=== PATIENT | female | born 1980 ===

== ENCOUNTER 2020-11-25 10:36 | Outpatient (REF) | payer MEDICARE, MEDICAID, SELFPAY | END 2020-11-25 10:37 | disposition home or self-care (01) | LOC: HO.HMGCLDS 10:36 | PROVIDERS: Visit Provider Internal Medicine | DX: Z20.822 Contact with and (suspected) exposure to COVID-19 (principal) | CPT/HCPCS: 36415; C9803; U0003 ==

== ENCOUNTER 2021-07-04 09:00 | Outpatient (REF) | payer MEDICARE, MEDICAID, SELFPAY ==
[2021-07-04 10:22] LABS: MANUAL DIFF FLAG NO
[2021-07-04 10:31] LABS: Basophils Percent Auto 0.6 % (0-2); Eosinophils Absolute Auto 0.1 X10*3/uL (0.0-0.4); Eosinophils Percent Auto 2.2 % (0-4); Hematocrit 37.5 % (37-47); Hemoglobin 12.4 g/dl (12.0-16.0); Imm Gran Abs Auto 0.01 X10*3/uL (0.00-0.03); Imm Gran Pct Auto 0.2 % (0.0-0.4); Lymphocytes Absolute Auto 2.4 X10*3/uL (1.2-4.9); Lymphocytes Percent Auto 37.4 % (20-40); Mean Corpuscular HGB Conc 33.1 g/dl (31.0-35.0); Mean Corpuscular Hemoglobin 29.8 pg (27.0-33.0); Mean Corpuscular Volume 90.1 fL (80-98); Mean Platelet Volume 11.2 fL (9.4-12.3); Monocytes Absolute Auto 0.5 X10*3/uL (0.1-1.2); Monocytes Percent Auto 7.5 % (2-11); Neutrophils Absolute Auto 3.3 X10*3/uL (2.0-8.3); Neutrophils Percent Auto 52.1 % (45-73); Platelet Count 307 X10*3/uL (160-400); Red Blood Count 4.16 X10*6/uL (4.20-5.50); White Blood Count 6.4 X10*3/uL (4.8-10.8)
[2021-07-04 10:48] LABS: Alanine Aminotransferase 11 U/L (0-31); Albumin Level 3.9 g/dL (3.5-5.0); Alkaline Phosphatase 83 U/L (39-117); Anion Gap 10 (12-20); Aspartate Amino Transferase 13 U/L (5-31); Bilirubin Total 0.3 mg/dL (0.0-1.0); Blood Urea Nitrogen 16 mg/dL (9-16); Calcium 8.9 mg/dL (8.4-10.2); Carbon Dioxide 25 mmol/L (22-29); Chloride 109 mmol/L (96-108); Estimated Glomerular Filt Rate > 60; Glucose Random 98 mg/dL (60-115); Potassium 4.3 mmol/L (3.3-5.1); Sodium 140 mmol/L (135-145); Total Protein 7.1 g/dL (6.5-8.0)
== END 2021-07-04 09:01 | disposition home or self-care (01) ==
LOC: HO.LAB 09:00
PROVIDERS: PCP Internal Medicine; Visit Provider Internal Medicine
DX: F43.10 Post-traumatic stress disorder, unspecified (principal); F70 Mild intellectual disabilities; N39.44 Nocturnal enuresis; R13.19 Other dysphagia
CPT/HCPCS: 36415; 80053; 85025

== ENCOUNTER 2021-09-03 12:06 | Outpatient (REF) | payer MEDICARE, MEDICAID, SELFPAY | END 2021-09-03 12:07 | disposition home or self-care (01) | LOC: HO.10HDL 12:06 | PROVIDERS: Visit Provider Internal Medicine | DX: Z13.89 Encounter for screening for other disorder (principal) ==

== ENCOUNTER 2021-09-04 09:56 | Outpatient (REF) | payer MEDICARE, MEDICAID, SELFPAY ==
[2021-09-04 10:11] LABS: MANUAL DIFF FLAG NO
[2021-09-04 10:39] LABS: Basophils Percent Auto 0.4 % (0-2); Eosinophils Absolute Auto 0.1 X10*3/uL (0.0-0.4); Eosinophils Percent Auto 1.8 % (0-4); Hematocrit 42.6 % (37-47); Hemoglobin 13.7 g/dl (12.0-16.0); Imm Gran Abs Auto 0.03 X10*3/uL (0.00-0.03); Imm Gran Pct Auto 0.4 % (0.0-0.4); Lymphocytes Percent Auto 26.1 % (20-40); Mean Corpuscular HGB Conc 32.2 g/dl (31.0-35.0); Mean Corpuscular Hemoglobin 29.3 pg (27.0-33.0); Mean Platelet Volume 11.1 fL (9.4-12.3); Monocytes Absolute Auto 0.7 X10*3/uL (0.1-1.2); Monocytes Percent Auto 8.6 % (2-11); Neutrophils Absolute Auto 4.8 X10*3/uL (2.0-8.3); Neutrophils Percent Auto 62.7 % (45-73); Platelet Count 307 X10*3/uL (160-400); Red Blood Count 4.68 X10*6/uL (4.20-5.50); Red Cell Distribution Width 11.9 % (11.0-16.0); White Blood Count 7.7 X10*3/uL (4.8-10.8)
[2021-09-04 11:07] LABS: Alanine Aminotransferase 12 U/L (0-31); Albumin Level 4.4 g/dL (3.5-5.0); Alkaline Phosphatase 110 U/L (39-117); Anion Gap 14 (12-20); Aspartate Amino Transferase 14 U/L (5-31); Bilirubin Total 0.4 mg/dL (0.0-1.0); Blood Urea Nitrogen 14 mg/dL (9-16); Calcium 9.6 mg/dL (8.4-10.2); Carbon Dioxide 28 mmol/L (22-29); Chloride 104 mmol/L (96-108); Cholesterol 199 mg/dL; Estimated Glomerular Filt Rate > 60; Glucose Random 101 mg/dL (60-115); HDL Cholesterol 42 mg/dL; LDL Cholesterol Calculated 126 mg/dl; Potassium 4.5 mmol/L (3.3-5.1); Sodium 141 mmol/L (135-145); Triglycerides 158 mg/dL
[2021-09-04 11:28] LABS: Thyroid Stimulating Hormone 1.73 uIU/mL (0.32-4.0)
== END 2021-09-04 09:57 | disposition home or self-care (01) ==
LOC: HO.LAB 09:56
PROVIDERS: PCP Internal Medicine; Visit Provider Internal Medicine
DX: F21 Schizotypal disorder (principal); J45.909 Unspecified asthma, uncomplicated; R13.19 Other dysphagia; R63.5 Abnormal weight gain
CPT/HCPCS: 36415; 80053; 80061; 84443; 85025

== ENCOUNTER 2021-12-17 16:18 | Emergency (ER) | payer MEDICARE, MEDICAID, SELFPAY ==
--- NOTE | ~2021-12-17 | XR_ITS ---
EXAMINATION: XR CHEST CLINICAL INFORMATION: Shortness of breath. COMPARISON: No similar priors. TECHNIQUE: PA view of the chest was obtained. FINDINGS: No significant abnormality is noted involving the heart, lungs, mediastinum, bony thorax or soft tissues. XR/XR chest 1V IMPRESSION: No acute cardiopulmonary findings.
[2021-12-17 16:34] VITALS: BP 150/86; PULSE 112; O2SAT 99
[2021-12-17 16:39] VITALS: BMI 23.0
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
--- NOTE | 2021-12-17 16:50 | MHC.CARE ---
CARE Team received a call from Lesvia Pedraza DSS Manager Cardiac Cath reporting Pt was assessed by [facility]N in the community and found IPLOC. Pt is currently a DDU Bedsearch.
[2021-12-17 19:19] LABS: MANUAL DIFF FLAG NO
[2021-12-17 19:21] LABS: Basophils Percent Auto 0.3 % (0-2); Eosinophils Absolute Auto 0.1 X10*3/uL (0.0-0.4); Eosinophils Percent Auto 0.5 % (0-4); Hematocrit 39.3 % (37.0-47.0); Hemoglobin 13.3 g/dl (12.0-16.0); Imm Gran Abs Auto 0.05 X10*3/uL (0.00-0.03); Imm Gran Pct Auto 0.4 % (0.0-0.4); Lymphocytes Absolute Auto 1.7 X10*3/uL (1.2-4.9); Lymphocytes Percent Auto 13.1 % (20-40); Mean Corpuscular HGB Conc 33.8 g/dl (31.0-35.0); Mean Corpuscular Hemoglobin 29.7 pg (27.0-33.0); Mean Corpuscular Volume 87.7 fL (80.0-98.0); Mean Platelet Volume 11.4 fL (9.4-12.3); Monocytes Absolute Auto 1.1 X10*3/uL (0.1-1.2); Monocytes Percent Auto 7.9 % (2-11); Neutrophils Absolute Auto 10.3 x10*3/uL (2.0-8.3); Neutrophils Percent Auto 77.8 % (45-73); Platelet Count 347 X10*3/uL (160-400); Red Blood Count 4.48 X10*6/uL (4.20-5.50); White Blood Count 13.3 X10*3/uL (4.8-10.8)
[2021-12-17 19:34] LABS: COVID-19 Test Negative (Negative); IDNOW Serial# 9DD0AD1C
[2021-12-17 19:36] LABS: Alanine Aminotransferase 15 U/L (0-31); Albumin Level 3.9 g/dL (3.5-5.0); Alkaline Phosphatase 105 U/L (39-117); Anion Gap 13 (12-20); Aspartate Amino Transferase 23 U/L (5-31); Bilirubin Total 0.2 mg/dL (0.0-1.0); Blood Urea Nitrogen 14 mg/dL (9-16); Calcium 9.2 mg/dL (8.4-10.2); Carbon Dioxide 27 mmol/L (22-29); Chloride 103 mmol/L (96-108); Creatinine Clr Calc Pharmacy 78.7; Estimated Glomerular Filt Rate > 60; Glucose Random 129 mg/dL (60-115); Magnesium 2.1 mg/dL (1.6-2.6); Potassium 3.2 mmol/L (3.3-5.1); Sodium 140 mmol/L (135-145); Total Protein 7.7 g/dL (6.5-8.0)
--- NOTE | 2021-12-17 21:01 | PC.NURSE ---
Addendum entered by Monalisa Barkley 12/17/21 22:18: late entry. pt decided to provide urine sample. pt refused repeat lab draw to check potassium. t/w emphasized importance of lab draw, pt still refused. luz cruz. Original Note: pt refused to provide urine sample. t/w stressed the importance of providing a sample, pt still refused.
[2021-12-17 21:24] LABS: Appearance Urine CLEAR; Color Urine YELLOW; Glucose Urine UA NEG (NEG); Leukocyte Esterase Urine NEG (NEG); Nitrite Urine NEG (NEG); UACC Culture Trigger NO; Urine Blood TRACE (NEG); Urine Ketones 5 MG/DL (NEG); Urine Protein NEG (NEG-TRACE)
[2021-12-17 21:32] LABS: Bacteria Urine TRACE /LPF; RBC Urine 0 /HPF (0); Squamous Epithelial Cell Urine 1+ /LPF; WBC Urine 0 /HPF (0-4)
[2021-12-17 21:41] LABS: Amphetamine Screen Urine Not Detected (Not Detect); Barbiturates, Urine Not Detected (Not Detect); Benzodiazepines Screen Urine Not Detected (Not Detect); Cannabinoid Screen Urine Not Detected (Not Detect); Cocaine Screen Urine Not Detected (Not Detect); Fentanyl, urine Not Detected (Not Detect); Opiate Screen Urine Not Detected (Not Detect); Phencyclidine Screen Urine Not Detected (Not Detect)
[2021-12-18 01:49] VITALS: BP 143/91; PULSE 92; RESP 16; TEMP 36.6; O2SAT 98
[2021-12-18 02:34] LABS: Anion Gap 18 (12-20); Blood Urea Nitrogen 13 mg/dL (9-16); Calcium 9.4 mg/dL (8.4-10.2); Carbon Dioxide 23 mmol/L (22-29); Chloride 104 mmol/L (96-108); Estimated Glomerular Filt Rate > 60; Glucose Random 107 mg/dL (60-115); Potassium 3.6 mmol/L (3.3-5.1); Sodium 141 mmol/L (135-145)
--- NOTE | 2021-12-18 06:09 | PC.NURSE ---
Patient slept through the night, no distress observed/reported, med rec completed/pending provider's approval, patient's disposition per N is section 12 inpatient DDU Bed Search, VSS, will continue to monitor.
[2021-12-18 07:50] VITALS: BP 141/94; PULSE 98; RESP 14; TEMP 37.2; O2SAT 98
--- NOTE | 2021-12-18 09:44 | PHA.MEDREC ---
Pharmacy Consult ? Medication Reconciliation Pharmacy has reviewed the medication reconciliation completed by [place]. Patient told me to call her pharmacy for updated medication list. Utilized claim history then called to verify directions. Added medications missed for med rec compelted overnight: oxybutynin, sertraline, and albuterol inhaler. Updated directions for diltiazem from QD to TID. Willow Esparza, PharmD
[2021-12-18 14:00] VITALS: BP 130/40; PULSE 98; RESP 16; TEMP 37.2; O2SAT 98
== END 2021-12-18 16:15 | disposition home or self-care (01) ==
PROVIDERS: Physician Assistant; Emergency Provider Emergency Medicine
DX: F91.9 Conduct disorder, unspecified (principal); F25.0 Schizoaffective disorder, bipolar type; R45.1 Restlessness and agitation; Z20.822 Contact with and (suspected) exposure to COVID-19; Z91.14 Patient's other noncompliance with medication regimen
CPT/HCPCS: 36415; 71045; 80048; 80053; 80307; 81001; 83735; 85025; 87635; 99284; 99285

== ENCOUNTER 2022-01-13 11:35 | Outpatient (REF) | payer MEDICARE, MEDICAID, SELFPAY ==
--- NOTE | ~2022-01-13 | XR_ITS ---
EXAMINATION: XR CHEST CLINICAL INFORMATION: Cough. Left anterior chest pain COMPARISON: Previous chest x-ray TECHNIQUE: 2 views of the chest were obtained. FINDINGS: No significant abnormality is noted involving the heart, lungs, mediastinum, bony thorax or soft tissues. XR/XR chest 2V IMPRESSION: Unremarkable examination.
== END 2022-01-13 11:36 | disposition home or self-care (01) ==
LOC: HO.XRAY 11:35
PROVIDERS: PCP Internal Medicine; Visit Provider Internal Medicine
DX: R05.9 Cough, unspecified (principal)
CPT/HCPCS: 71046

== ENCOUNTER 2022-02-03 20:30 | Emergency (ER) | payer MEDICARE, MEDICAID, SELFPAY ==
[2022-02-03 20:38] VITALS: BP 135/96; PULSE 90; RESP 16; TEMP 36.6; O2SAT 99; BMI 34.9
--- NOTE | 2022-02-03 21:29 | ED_ITS ---
HPI - Psych General Chief Complaint: Psychiatric Symptoms Stated Complaint: SECTION 12 Time Seen by Provider: 02/03/22 20:39 Source: EMS Mode of arrival: EMS Limitations: other (Unwilling to speak) History of Present Illness HPI Narrative: Patient is brought to the emergency room from a senior care. According to the group staff, patient has been gradually decompensated; eating less, becoming more quiet, not talking to people. Behavioral health network Section 12 the patient, she is an inpatient bed search. When I speak to the patient, patient states that she does not know why she is here. Otherwise, patient refuses to answer any other questions. Related Data Home Medications Medication Instructions Recorded Confirmed clonazepam 1 mg tablet 1 tab PO BID PRN 12/17/21 02/03/22 diltiazem HCl 30 mg tablet 30 mg PO TID 12/17/21 02/03/22 famotidine 20 mg tablet 1 tab PO BID 12/17/21 02/03/22 loratadine 10 mg tablet 1 tab PO DAILY 12/17/21 02/03/22 montelukast 10 mg tablet 1 tab PO DAILY 12/17/21 02/03/22 olanzapine 15 mg tablet 1 tab PO BEDTIME 12/17/21 02/03/22 omeprazole 40 mg capsule,delayed 1 cap PO DAILY 12/17/21 02/03/22 release topiramate 50 mg tablet 1 tab PO DAILY 12/17/21 02/03/22 albuterol sulfate 90 mcg/actuation 2 puff INHALATION Q4H PRN 12/18/21 02/03/22 aerosol inhaler oxybutynin chloride 15 mg 1 tab PO DAILY 12/18/21 02/03/22 tablet,extended release 24 hr sertraline 100 mg tablet 200 mg PO DAILY 12/18/21 02/03/22 Allergies Allergy/AdvReac Type Severity Reaction Status Date / Time No Known Allergies Allergy Unverified 08/08/20 15:15 [No Known Allergies*] Review of Systems Review of Systems: Yes Unobtainable due to mental status PMFSH Past Medical History Medical History (Updated 02/03/22 @ 21:40 by Marleen Dobson MD) Conduct disorder Intellectual disability Schizoaffective disorder Social History Social History Advance Directives: No Advance Directives Information Provided: No Patient : No Physical Exam Vital Signs: Vital Signs: Last Vital Signs Temp 97.9 F 02/03/22 20:38 Pulse 90 02/03/22 20:38 Resp 16 02/03/22 20:38 BP 135/96 H 02/03/22 20:38 Pulse Ox 99 02/03/22 20:38 BMI result Body Mass Index 34.9 Const: Other: Appearance: Alert. No acute distress. Eyes: Pupils equal, round and reactive to light. ENT: Pharynx normal. Neck: Normal inspection. Neck supple. CVS: Normal heart rate and rhythm. Pulses normal. Respiratory: No respiratory distress. Breath sounds normal. Abdomen: Soft and nontender. No rigidity. No distention. Skin: Skin warm and dry. Normal skin color. Normal skin turgor. Extremities: No lower extremity edema. No Lacerations. No Rash Neuro: Ambulating with steady gait unassisted, No motor deficit. No sensory deficit. Moving all extremities. No slurred speech. CN 2 through 12 grossly intact Psych: calm, unwilling to speak, sitting in bed starting of the TV Course Course Course Narrative: Patient was already evaluated at the senior care by [facility]. Patient is an inpatient bed search. Physician ulceration started at 21:40 Discharge Plan Discharge Clinical Impression: Schizoaffective disorder Patient Disposition: Still a Patient Prescriptions: No Action omeprazole 40 mg capsule,delayed release(DR/EC) 1 cap PO DAILY 0RF famotidine 20 mg tablet 1 tab PO BID 0RF montelukast 10 mg tablet 1 tab PO DAILY 0RF diltiazem HCl 30 mg tablet 30 mg PO TID 0RF loratadine 10 mg tablet 1 tab PO DAILY 0RF topiramate 50 mg tablet 1 tab PO DAILY 0RF clonazepam 1 mg tablet 1 tab PO BID PRN (Reason: Anxiety) 0RF olanzapine 15 mg tablet 1 tab PO BEDTIME 0RF oxybutynin chloride 15 mg tablet extended release 24 hr 1 tab PO DAILY 0RF sertraline 100 mg tablet 200 mg PO DAILY 0RF albuterol sulfate 90 mcg/actuation HFA aerosol inhaler 2 puff inhalation Q4H PRN (Reason: Wheezing) 0RF
[2022-02-03 21:57] LABS: COVID-19 Test Negative (Negative)
[2022-02-04 06:30] VITALS: BP 129/74; PULSE 87; RESP 16; TEMP 36.3; O2SAT 98
--- NOTE | 2022-02-04 06:52 | PC.NURSE ---
Patient slept through the night, no distress observed/reported, behavior non concerning, med rec completed/pending provider's approval, patient was assessed by [facility], disposition section 12 inpatient bed search, will continue to monitor.
[2022-02-04 06:55] LABS: Appearance Urine CLEAR; Color Urine YELLOW; Glucose Urine UA NEG (NEG); Leukocyte Esterase Urine TRACE (NEG); Nitrite Urine NEG (NEG); Specific Gravity - Urine >= 1.030 (1.005-1.025); Urine Blood 3+ (NEG); Urine Ketones 5 MG/DL (NEG); Urine Protein 1+ MG/DL (NEG-TRACE)
[2022-02-04 06:56] LABS: Amphetamine Screen Urine Not Detected (Not Detect); Barbiturates, Urine Not Detected (Not Detect); Benzodiazepines Screen Urine Not Detected (Not Detect); Cannabinoid Screen Urine Not Detected (Not Detect); Cocaine Screen Urine Not Detected (Not Detect); Fentanyl, urine Not Detected (Not Detect); Opiate Screen Urine Not Detected (Not Detect); Phencyclidine Screen Urine Not Detected (Not Detect); UPreg QC Valid YES; Urine Pregnancy NEGATIVE (NEGATIVE)
[2022-02-04 07:20] LABS: Bacteria Urine 2+ /LPF; Mucus Urine 1+ /LPF; Squamous Epithelial Cell Urine 2+ /LPF
--- NOTE | 2022-02-04 07:38 | PC.NURSE ---
patient appears to remain asleep at present respirations are even and unlabored patient appears in no distress
[2022-02-04 15:36] VITALS: BP 115/80; PULSE 76; RESP 18; TEMP 37.4; O2SAT 95
[2022-02-04] MEDS: dilTIAZem HCL 30 MG TABLET PO ×2 (16:06→21:19)
[2022-02-04] MEDS: Topiramate 25 MG TABLET 50 MG PO (16:06)
[2022-02-04] MEDS: Montelukast Sodium 10 MG TABLET PO (16:06)
[2022-02-04] MEDS: Loratadine 10 MG TABLET PO (16:06)
[2022-02-04] MEDS: Sertraline HCL 100 MG TABLET 200 MG PO (16:06)
[2022-02-04] MEDS: Omeprazole 40 MG CAPSULE.DR PO (16:06)
[2022-02-04] MEDS: OLANZapine 7.5 MG TABLET 15 MG PO (21:19)
[2022-02-04] MEDS: clonazePAM 1 MG TABLET PO (21:19)
[2022-02-04] MEDS: Famotidine 20 MG TABLET PO (21:19)
--- NOTE | 2022-02-05 05:45 | PC.NURSE ---
Patient slept through the night, no distress observed/reported, behavior non concerning, medication compliant, [facility]N completed MSU, disposition unchanged, section 12 inpatient bed search, VSS, will continue to monitor.
[2022-02-05 06:08] VITALS: BP 145/84; PULSE 84; RESP 16; TEMP 36.8; O2SAT 97
[2022-02-05] MEDS: Omeprazole 40 MG CAPSULE.DR PO (06:13)
[2022-02-05] MEDS: Sertraline HCL 100 MG TABLET 200 MG PO (09:00)
[2022-02-05] MEDS: Topiramate 25 MG TABLET 50 MG PO (09:00)
[2022-02-05] MEDS: Montelukast Sodium 10 MG TABLET PO (09:01)
[2022-02-05] MEDS: Famotidine 20 MG TABLET PO ×2 (09:01→21:19)
[2022-02-05] MEDS: dilTIAZem HCL 30 MG TABLET PO ×3 (09:01→21:19)
[2022-02-05] MEDS: Loratadine 10 MG TABLET PO (09:02)
--- NOTE | 2022-02-05 09:09 | PC.NURSE ---
pt medication compliant - medicated per provider order.
[2022-02-05 16:30] VITALS: BP 148/77; PULSE 78; RESP 16; TEMP 36.7; O2SAT 98
--- NOTE | 2022-02-05 16:34 | PC.NURSE ---
pt medicated per provider order.
--- NOTE | 2022-02-05 17:25 | PC.NURSE ---
pt awake and watching TV, increased interaction with staff, showered this afternoon, pt calm and cooperative.
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
[2022-02-05] MEDS: OLANZapine 7.5 MG TABLET 15 MG PO (21:19)
[2022-02-05 21:21] VITALS: BP 100/76; PULSE 76; RESP 18
[2022-02-06] MEDS: Omeprazole 40 MG CAPSULE.DR PO (05:05)
[2022-02-06 06:43] VITALS: BP 117/70; PULSE 88; RESP 16; TEMP 36.6; O2SAT 97
--- NOTE | 2022-02-06 06:56 | PC.NURSE ---
Patient slept through the night, no distress observed/reported, behavior non concerning, medication compliant, disposition per [facility] is section 12 inpatient bed search, VSS, will continue to monitor.
--- NOTE | 2022-02-06 07:22 | PC.NURSE ---
patient appears to remain asleep at present respirations are even and unlabored patient appears in no distress
[2022-02-06 10:15] VITALS: BP 117/83; PULSE 111; RESP 14; TEMP 36.8; O2SAT 96
[2022-02-06] MEDS: dilTIAZem HCL 30 MG TABLET PO ×2 (14:38→20:55)
[2022-02-06] MEDS: OLANZapine 7.5 MG TABLET 15 MG PO (20:54)
[2022-02-06] MEDS: Famotidine 20 MG TABLET PO (20:55)
[2022-02-06 21:00] VITALS: BP 116/81; PULSE 121; RESP 18
[2022-02-07 05:52] VITALS: BP 96/57; PULSE 70; RESP 16; TEMP 36.8; O2SAT 97
[2022-02-07] MEDS: Omeprazole 40 MG CAPSULE.DR PO (05:55)
--- NOTE | 2022-02-07 05:59 | PC.NURSE ---
Patient slept through the night, no distress observed/reported, behavior calm and quiet, non concerning at this time, disposition section 12 inpatient bed search by N, no update on bed search, VSS, medication compliant, will continue to monitor.
[2022-02-07 08:31] VITALS: BP 117/73; PULSE 100; RESP 16; O2SAT 98
[2022-02-07] MEDS: dilTIAZem HCL 30 MG TABLET PO ×2 (08:35→20:16)
[2022-02-07] MEDS: Montelukast Sodium 10 MG TABLET PO (08:35)
[2022-02-07] MEDS: Famotidine 20 MG TABLET PO ×2 (08:35→20:16)
[2022-02-07] MEDS: Sertraline HCL 100 MG TABLET 200 MG PO (08:35)
[2022-02-07] MEDS: Topiramate 25 MG TABLET 50 MG PO (08:35)
[2022-02-07] MEDS: Loratadine 10 MG TABLET PO (08:36)
--- NOTE | 2022-02-07 08:50 | MHC.CARE ---
Behavioral Health Pod RN notifies CARE Team that pt has taken her medications as prescribed today without incident and did so yesterday as well for the same RN. POD RN stated that pt appears clearer today as well.
--- NOTE | 2022-02-07 10:57 | PC.NURSE ---
Patient resting in room alert and cooperative voiced wanting to go home. This rn discussed the importance of med compliance for discharge home, patient verbalized understanding and took all am meds. No c/o pain or discomfort at this time. will continue to monitor.
--- NOTE | 2022-02-07 14:58 | PC.NURSE ---
patient med was held due to low sbp 91
[2022-02-07 19:16] VITALS: BP 141/83; PULSE 76; RESP 18; TEMP 37; O2SAT 96
[2022-02-07] MEDS: OLANZapine 7.5 MG TABLET 15 MG PO (20:16)
--- NOTE | 2022-02-08 05:28 | PC.NURSE ---
Patient slept through the night, no distress observed/reported, behavior non concerning at this time, disposition per [facility] section 12 inpatient bed search, no update on bed search, VSS, medication compliant, will continue to monitor
[2022-02-08] MEDS: Omeprazole 40 MG CAPSULE.DR PO (05:33)
[2022-02-08 05:45] VITALS: BP 97/55; PULSE 71; RESP 16; TEMP 36.5; O2SAT 97
[2022-02-08 08:57] LABS: MANUAL DIFF FLAG NO
[2022-02-08 08:58] LABS: Basophils Percent Auto 0.6 % (0-2); Eosinophils Absolute Auto 0.2 X10*3/uL (0.0-0.4); Eosinophils Percent Auto 2.7 % (0-4); Hemoglobin 13.7 g/dl (12.0-16.0); Imm Gran Abs Auto 0.03 X10*3/uL (0.00-0.03); Imm Gran Pct Auto 0.4 % (0.0-0.4); Lymphocytes Absolute Auto 1.9 X10*3/uL (1.2-4.9); Lymphocytes Percent Auto 26.2 % (20-40); Mean Corpuscular HGB Conc 32.6 g/dl (31.0-35.0); Mean Corpuscular Hemoglobin 29.3 pg (27.0-33.0); Mean Corpuscular Volume 89.9 fL (80.0-98.0); Mean Platelet Volume 11.4 fL (9.4-12.3); Monocytes Absolute Auto 0.6 X10*3/uL (0.1-1.2); Monocytes Percent Auto 8.9 % (2-11); Neutrophils Absolute Auto 4.4 x10*3/uL (2.0-8.3); Neutrophils Percent Auto 61.2 % (45-73); Platelet Count 277 X10*3/uL (160-400); Red Blood Count 4.67 X10*6/uL (4.20-5.50); Red Cell Distribution Width 12.7 % (11.0-16.0); White Blood Count 7.1 X10*3/uL (4.8-10.8)
[2022-02-08 09:17] LABS: Alanine Aminotransferase 8 U/L (0-31); Albumin Level 4.3 g/dL (3.5-5.0); Alkaline Phosphatase 107 U/L (39-117); Anion Gap 13 (12-20); Aspartate Amino Transferase 14 U/L (5-31); Bilirubin Total 0.4 mg/dL (0.0-1.0); Blood Urea Nitrogen 17 mg/dL (9-16); Calcium 9.6 mg/dL (8.4-10.2); Carbon Dioxide 23 mmol/L (22-29); Chloride 104 mmol/L (96-108); Creatinine Clr Calc Pharmacy 96.1; Estimated Glomerular Filt Rate > 60; Glucose Random 108 mg/dL (60-115); Magnesium 2.2 mg/dL (1.6-2.6); Potassium 4.4 mmol/L (3.3-5.1); Sodium 136 mmol/L (135-145); Total Protein 8.1 g/dL (6.5-8.0)
[2022-02-08] MEDS: Famotidine 20 MG TABLET PO ×2 (10:21→19:39)
[2022-02-08] MEDS: Montelukast Sodium 10 MG TABLET PO (10:22)
[2022-02-08] MEDS: Loratadine 10 MG TABLET PO (10:22)
[2022-02-08] MEDS: Topiramate 25 MG TABLET 50 MG PO (10:22)
[2022-02-08] MEDS: dilTIAZem HCL 30 MG TABLET PO ×3 (10:22→19:39)
[2022-02-08] MEDS: Sertraline HCL 100 MG TABLET 200 MG PO (10:22)
[2022-02-08 10:28] VITALS: BP 101/78; PULSE 76; O2SAT 98
[2022-02-08 15:42] VITALS: BP 120/78; PULSE 80
[2022-02-08 19:38] VITALS: BP 101/71; PULSE 74; RESP 16; TEMP 36.6; O2SAT 96
[2022-02-08] MEDS: OLANZapine 7.5 MG TABLET 15 MG PO (19:38)
--- NOTE | 2022-02-08 21:07 | MHC.CARE ---
CARE team spoke with Milton at [facility] to inquire about the disposition from this afternoon's MSU. Milton reported that the plan continues to be for DDU inpt psych placement and that if pt stabilizes in the ED that discharging home without inpt admission may be considered.
[2022-02-09] MEDS: Omeprazole 40 MG CAPSULE.DR PO (05:35)
[2022-02-09 05:44] VITALS: BP 118/58; PULSE 77; RESP 16; TEMP 36.8; O2SAT 95
--- NOTE | 2022-02-09 06:49 | PC.NURSE ---
Patient slept through the night, no distress observed/reported, behavior non concerning at this time, disposition per [facility] section 12 inpatient bed search, no update on bed search, VSS, medication compliant, will continue to monitor
--- NOTE | 2022-02-09 07:35 | PC.NURSE ---
patient appears to remain asleep at present respirations are even and unlabored patient appears in no distress
[2022-02-09 08:34] VITALS: BP 116/74; PULSE 95; RESP 12; TEMP 36.7; O2SAT 95
[2022-02-09] MEDS: Topiramate 25 MG TABLET 50 MG PO (08:49)
[2022-02-09] MEDS: Montelukast Sodium 10 MG TABLET PO (08:49)
[2022-02-09] MEDS: dilTIAZem HCL 30 MG TABLET PO ×2 (08:50→16:17)
[2022-02-09] MEDS: Sertraline HCL 100 MG TABLET 200 MG PO (08:50)
[2022-02-09] MEDS: Loratadine 10 MG TABLET PO (08:50)
[2022-02-09] MEDS: Famotidine 20 MG TABLET PO ×2 (08:50→20:33)
[2022-02-09 16:18] VITALS: BP 121/79; PULSE 83; RESP 16; TEMP 36.7; O2SAT 98
[2022-02-09 17:03] VITALS: BP 122/88; PULSE 90; RESP 18; TEMP 36.9; O2SAT 98
--- NOTE | 2022-02-09 19:04 | MHC.CARE ---
CARE Team continues to work with pt and providers. Per [facility] intake, no clinicians available for MSU today. CARE Team meets with pt, who appears markedly better then last week, drawing pictures of terrell and hearts and spending time out in the milieu. Pt has been attending to her hygiene and has been taking all of her medications per Pod nursing staff. Pt has had no significant behavioral concerns, denies SI/HI and she is advocating to return to her long term. CARE Team speaks with Anh, manager visual from the long term. She plans on speaking with DDS and encourages CARE Team to assess pt in regard to her perception of her father. Melissa reports that pt has been confused/having delusional thought content about her father which is very uncharacteristic for her, as they typically have a very close relationship. CARE Team and pt discuss her father, and she reports that they have a close relationship, thought process is logical, linear. Per pod RN, pt has been attempting to call her father. CARE Team attempts to reach father who is also guardian, but there is no answering machine. CARE Team speaks with RODERICK Quesada beehive kil[employer] supervisor. The plan is for pt to be discharged from ED at 1000 02/10/22 for bedsearch to continue in the community. senior living, DDS, N, and ED provider are all in agreement with this plan. Pt has 24 hr staff at [facility] and has not exhibited any dangerous behaviors in the time she has been in the ED.
[2022-02-09 20:11] VITALS: BP 96/68; PULSE 77; RESP 15; TEMP 36.8; O2SAT 98
[2022-02-10 05:36] VITALS: BP 108/76; PULSE 86; RESP 16; TEMP 37.1; O2SAT 99
[2022-02-10] MEDS: Omeprazole 40 MG CAPSULE.DR PO (05:38)
--- NOTE | 2022-02-10 05:40 | PC.NURSE ---
Patient slept through the night, no distress observed/reported, behavior non concerning at this time, patient will be discharged back to retirement today @ 10 and bed search will be continued from retirement, VSS, medication compliant, will continue to monitor
--- NOTE | 2022-02-10 07:36 | PC.NURSE ---
patient appears to remain at rest at present respirations are even and unlabored patient appears in no distress
[2022-02-10] MEDS: Topiramate 25 MG TABLET 50 MG PO ×2 (08:01→08:48)
[2022-02-10] MEDS: Loratadine 10 MG TABLET PO ×2 (08:01→08:48)
[2022-02-10] MEDS: Montelukast Sodium 10 MG TABLET PO ×2 (08:01→08:48)
[2022-02-10] MEDS: Sertraline HCL 100 MG TABLET 200 MG PO ×2 (08:01→08:48)
[2022-02-10] MEDS: Famotidine 20 MG TABLET PO (08:47)
[2022-02-10] MEDS: dilTIAZem HCL 30 MG TABLET PO (08:47)
== END 2022-02-10 10:04 | disposition home or self-care (01) ==
PROVIDERS: Emergency Medicine; Physician Assistant Medical; Emergency Provider Emergency Medicine Emergency Medical Services
DX: F25.9 Schizoaffective disorder, unspecified (principal); F91.9 Conduct disorder, unspecified; F79 Unspecified intellectual disabilities; Z79.899 Other long term (current) drug therapy; Z20.822 Contact with and (suspected) exposure to COVID-19
CPT/HCPCS: 36415; 80053; 80307; 81001; 81025; 83735; 85025; 87635; 99285

== ENCOUNTER 2022-02-10 12:01 | Emergency (ER) | payer MEDICARE, MEDICAID, SELFPAY ==
[2022-02-10 12:14] VITALS: BP 120/77; PULSE 80; RESP 16; TEMP 37; O2SAT 99; BMI 31.3
[2022-02-10 12:16] VITALS: BP 114/72; PULSE 94; RESP 14; TEMP 37.1; O2SAT 99
--- NOTE | 2022-02-10 12:17 | ED.PSYCH ---
HPI - Psych General Chief Complaint: Psychiatric Symptoms Stated Complaint: Crisis Time Seen by Provider: 02/10/22 12:16 Source: patient and old records reviewed Mode of arrival: EMS Limitations: no limitations History of Present Illness HPI Narrative: 41-year-old female with a history of schizoaffective disorder who lives [place] a [place] [facility] [place] was here in the Behavioral Health pod for several days. Patient was a bed search, and was discharged home to her [place] because care team thought she could be admitted to a psychiatric facility from [place]. She was only home for 2 hours when a bed was found for her. However, [facility], will not accept the patient until she is medically cleared, they request a COVID test and her being sent to them from the emergency room. So patient has returned here for her COVID test and to transfer to [facility]. Patient is a Section 12, and came here originally for safety due to behavioral issues at her [place]. Related Data Home Medications Medication Instructions Recorded Confirmed clonazepam 1 mg tablet 1 tab PO BID PRN 12/17/21 02/03/22 diltiazem HCl 30 mg tablet 30 mg PO TID 12/17/21 02/03/22 famotidine 20 mg tablet 1 tab PO BID 12/17/21 02/03/22 loratadine 10 mg tablet 1 tab PO DAILY 12/17/21 02/03/22 montelukast 10 mg tablet 1 tab PO DAILY 12/17/21 02/03/22 olanzapine 15 mg tablet 1 tab PO BEDTIME 12/17/21 02/03/22 omeprazole 40 mg capsule,delayed 1 cap PO DAILY 12/17/21 02/03/22 release topiramate 50 mg tablet 1 tab PO DAILY 12/17/21 02/03/22 albuterol sulfate 90 mcg/actuation 2 puff INHALATION Q4H PRN 12/18/21 02/03/22 aerosol inhaler oxybutynin chloride 15 mg 1 tab PO DAILY 12/18/21 02/03/22 tablet,extended release 24 hr sertraline 100 mg tablet 200 mg PO DAILY 12/18/21 02/03/22 Allergies Allergy/AdvReac Type Severity Reaction Status Date / Time No Known Allergies Allergy Unverified 08/08/20 15:15 [No Known Allergies*] Review of Systems Constitutional: Constitutional: Denies body ache(s), Denies chills, Denies fatigue, Denies fever(s), Denies headache(s), Denies malaise and Denies weakness Eyes: Eyes: Denies diplopia ENT: Denies vertigo, Denies dizziness, Denies otalgia, Denies headache(s), Denies mouth pain, Denies post nasal drip, Denies sinus pain, Denies sinus pressure, Denies sore throat and Denies throat swelling Cardiovascular: Cardiovascular: Denies chest pain, Denies syncope, Denies leg edema, Denies lightheadedness, Denies Loss of Consciousness, Denies palpitations and Denies dyspnea Respiratory: Respiratory: Denies chest congestion, Denies cough and Denies dyspnea Gastrointestinal: Gastrointestinal: Denies abdominal pain, Denies hematochezia, Denies constipation, Denies diarrhea and Denies vomiting Musculoskeletal: Musculoskeletal: Reports no additional musculoskeletal complaints Neurologic: Denies vertigo, Denies dizziness, Denies syncope, Denies headache(s) and Denies weakness Psychiatric: Comments: Escalating behaviors, unsafe at [place] [facility] Endocrine: Endocrine: Denies fatigue and Denies palpitations Allergic/Immunologic: Allergic/Immunologic: Denies throat swelling PMFSH Past Medical History Medical History (Updated 02/10/22 @ 13:08 by ELYSE Phan) Conduct disorder Intellectual disability Schizoaffective disorder Social History Social History Alcohol intake: unknown Patient Tobacco Use Status: Refuse Tobacco use screen Advance Directives: No Advance Directives Information Provided: No Patient : No Physical Exam Vital Signs: Vital Signs: Last Vital Signs Temp 98.8 F 02/10/22 12:16 Pulse 94 02/10/22 12:16 Resp 14 02/10/22 12:16 BP 114/72 02/10/22 12:16 Pulse Ox 99 02/10/22 12:16 BMI result Body Mass Index 31.3 Const: General: cooperative, no acute distress, well developed, alert and awake Nutritional Appearance: well nourished Orientation/consciousness: patient oriented x3 Limitations: no limitations HEENT: Head: Yes normal to inspection, Yes normocephalic and Yes atraumatic Ears: hearing grossly normal bilaterally, external ears normal, TM's normal bilaterally and EAC's normal General nose exam: Normal external nose present Face and sinus: Yes normal facial exam and Yes sinuses nontender Mouth: Normal oral and palatal mucosa present Throat: Yes posterior oropharynx normal Eyes: Conjunctivae: conjunctivae normal Pupils: Equal, round and reactive pupils present EOM: EOMs intact bilaterally Neck: Neck: Yes full ROM, Yes no lymphadenopathy and Yes supple Resp: Effort & Inspection: normal respiratory effort and able to speak in complete sentences Auscultation: clear to auscultation bilaterally, no crackles, no rales, no rhonchi and no wheezes Cardio: Rate: regular rate Rhythm: regular rhythm Heart sounds: S1 normal heart sound present and S2 normal heart sound present GI: Inspection: Yes normal to inspection Palpation (GI): Soft to palpation, nontender, no guarding and not rigid Percussion: Yes normal to percussion Auscultation: normal bowel sounds Skin: General skin exam: no rashes or lesions noted Neuro: General: patient oriented x3, tone normal and moves all extremities Cranial nerves: Yes Equal, round and reactive pupils present Extrem: General: Yes normal to inspection and Yes full ROM Psych: Appearance: grossly normal Affect: normal affect Attitude: cooperative Thought process: Normal thought process present Course Course Course Narrative: 41-year-old female who lives [place] presents for medical clearance so she can be transferred to [facility] for an inpatient psychiatric stay, due to her behavioral issues at the [place]. Patient is COVID negative, and is transferred to [facility]. MDM - Psych Lab Data Labs: Lab Results 02/10/22 Range/Units 12:32 COVID-19 (GAUTAM) Negative (Negative) COVID-19 Clin Com See Note Discharge Plan Discharge Clinical Impression: Schizoaffective disorder Patient Disposition: er Acute Care Hospital Transfer Details: [facility], [place], [address] Prescriptions: No Action omeprazole 40 mg capsule,delayed release(DR/EC) 1 cap PO DAILY 0RF famotidine 20 mg tablet 1 tab PO BID 0RF montelukast 10 mg tablet 1 tab PO DAILY 0RF diltiazem HCl 30 mg tablet 30 mg PO TID 0RF loratadine 10 mg tablet 1 tab PO DAILY 0RF topiramate 50 mg tablet 1 tab PO DAILY 0RF clonazepam 1 mg tablet 1 tab PO BID PRN (Reason: Anxiety) 0RF olanzapine 15 mg tablet 1 tab PO BEDTIME 0RF oxybutynin chloride 15 mg tablet extended release 24 hr 1 tab PO DAILY 0RF sertraline 100 mg tablet 200 mg PO DAILY 0RF albuterol sulfate 90 mcg/actuation HFA aerosol inhaler 2 puff inhalation Q4H PRN (Reason: Wheezing) 0RF
[2022-02-10 12:54] LABS: COVID-19 Test Negative (Negative); IDNOW Serial# 16C4AD1C
[2022-02-10 19:52] VITALS: BP 127/80; PULSE 97; RESP 18; TEMP 37.1; O2SAT 98
== END 2022-02-10 20:10 | disposition short-term general hospital (02) ==
PROVIDERS: Physician Assistant; Emergency Provider Emergency Medicine Emergency Medical Services; PCP Physician Assistant Medical
DX: Z02.2 Encounter for examination for admission to residential institution (principal); F25.9 Schizoaffective disorder, unspecified; Z20.822 Contact with and (suspected) exposure to COVID-19
CPT/HCPCS: 87635; 99285

== ENCOUNTER 2022-04-15 15:17 | Inpatient (IN) | payer MEDICARE, MEDICAID, SELFPAY ==
[2022-04-15 15:32] VITALS: BMI 41.5
--- NOTE | 2022-04-15 15:37 | ED_ITS ---
HPI - Psych General Chief Complaint: Psychiatric Symptoms <ELYSE Gan Last Filed: 04/16/22 02:15> Stated Complaint: crisis <ELYSE Gan Last Filed: 04/16/22 02:15> Time Seen by Provider: 04/15/22 15:37 <ELYSE Gan Last Filed: 04/16/22 02:15> Source: EMS and RN notes reviewed <ELYSE Gan Last Filed: 04/16/22 02:15> Mode of arrival: EMS <ELYSE Gan Last Filed: 04/16/22 02:15> Limitations: other (Refusing to answer questions) <ELYSE Gan Last Filed: 04/16/22 02:15> History of Present Illness HPI Narrative: 42-year-old female presenting to the Emergency Department on a Section 12 with EMS and police on board she is coming in for violation of a Alfonso order, patient not taking her medications. Experiencing delusions, wanting to stab her 3rd eye out, has been combative and aggressive at the jail. She is refusing to answer questions. Not making eye contact. Keep saying nope to every question. Unable to obtain an accurate review of systems and history from patient due to mental status <ELYSE Gan Last Filed: 04/16/22 02:15> History of same: Yes <ELYSE Gan Last Filed: 04/16/22 02:15> Relieving factors: none <ELYSE Gan Last Filed: 04/16/22 02:15> Exacerbating factors: none <ELYSE Gan Last Filed: 04/16/22 02:15> Related Data Home Medications: Home Medications Medication Instructions Recorded Confirmed diltiazem HCl 30 mg tablet 30 mg PO TID 12/17/21 04/15/22 famotidine 20 mg tablet 1 tab PO BID 12/17/21 04/15/22 loratadine 10 mg tablet 1 tab PO DAILY 12/17/21 04/15/22 olanzapine 15 mg tablet 1 tab PO BEDTIME 12/17/21 04/15/22 omeprazole 40 mg capsule,delayed 1 cap PO DAILY 12/17/21 04/15/22 release topiramate 50 mg tablet 1 tab PO BEDTIME 12/17/21 04/15/22 albuterol sulfate 90 mcg/actuation 2 puff INHALATION Q4H PRN 12/18/21 04/15/22 aerosol inhaler sertraline 100 mg tablet 200 mg PO DAILY 12/18/21 04/15/22 <ELYSE Gan - Last Filed: 04/16/22 02:15> Allergies/Adverse Reactions: Allergies Allergy/AdvReac Type Severity Reaction Status Date / Time No Known Allergies Allergy Verified 04/15/22 15:35 [No Known Allergies*] <ELYSE Gan - Last Filed: 04/16/22 02:15> Review of Systems Review of Systems: Yes Unobtainable due to mental status <ELYSE Gan - Last Filed: 04/16/22 02:15> PMFSH Past Medical History Attestation statement: The following information was validated with the patient. <ELYSE Gan - Last Filed: 04/16/22 02:15> Source: old records reviewed and nursing notes reviewed <ELYSE Gan - Last Filed: 04/16/22 02:15> Medical History: Medical History Conduct disorder Intellectual disability Schizoaffective disorder <ELYSE Gan - Last Filed: 04/16/22 02:15> Social History Social History: Social History Alcohol intake: unknown Patient Tobacco Use Status: Refuse Tobacco use screen Advance Directives: No Advance Directives Information Provided: No <ELYSE Gan - Last Filed: 04/16/22 02:15> Physical Exam Vital Signs: Vital Signs: Last Vital Signs Temp 98.3 F 04/16/22 19:51 Pulse 68 04/16/22 19:51 Resp 18 04/16/22 19:51 BP 114/79 04/16/22 19:51 Pulse Ox 97 04/16/22 19:51 BMI result Body Mass Index 41.5 <ELYSE Gan - Last Filed: 04/16/22 02:15> Vital Signs: Last Vital Signs Temp 98.3 F 04/16/22 19:51 Pulse 68 04/16/22 19:51 Resp 18 04/16/22 19:51 BP 114/79 04/16/22 19:51 Pulse Ox 97 04/16/22 19:51 BMI result Body Mass Index 41.5 <ELYSE Elmore - Last Filed: 04/16/22 08:19> Vital Signs: Last Vital Signs Temp 98.3 F 04/16/22 19:51 Pulse 68 04/16/22 19:51 Resp 18 04/16/22 19:51 BP 114/79 04/16/22 19:51 Pulse Ox 97 04/16/22 19:51 BMI result Body Mass Index 41.5 <Audrey Garcia NP - Last Filed: 04/16/22 20:44> Appearance: Alert.? Oriented X3.? No acute distress.? Patient refusing to answer questions. Head: Normocephalic, atraumatic, no step-offs or deformities Eyes: Pupils equal, round and reactive to light.? ENT: Pharynx normal.? Neck: Normal inspection.? Neck supple.? CVS: Normal heart rate and rhythm.? Pulses normal.? Respiratory: No respiratory distress.? Breath sounds normal.? Abdomen: Soft and nontender.? Skin: Skin warm and dry.? Normal skin color.? Normal skin turgor.? Extremities: No lower extremity edema.? No calf ttp. 5/5 strength to bilateral upper and lower extremities Neuro: Oriented X 3.? No motor deficit.? No sensory deficit. CN 2-12 intact <ELYSE Gan - Last Filed: 04/16/22 02:15> Course Reevaluation(s) Reevaluation #1: COVID negative. Patient continues to refuse laboratory studies. <ELYSE Gan - Last Filed: 04/16/22 02:15> Time: 23:39 <ELYSE Gan - Last Filed: 04/16/22 02:15> Reevaluation #2: Multiple staff members have tried to get patient to agree to labs however she is refusing. Vital signs are stable. Sign-out given to pending labs, n evaluation. Patient will be place in physician observation to allow more time for laboratory studies, urine and behavioral health evaluation. <ELYSE Gan - Last Filed: 04/16/22 02:15> Time: 02:11 <ELYSE Gan - Last Filed: 04/16/22 02:15> Reevaluation #3: Physician observation continued. Patient continues to refuse lab wo rkup, will try again today. She is an inpatient bed search. She has been calm and maintaining safe behavior. Will continue to monitor. <ELYSE Elmore - Last Filed: 04/16/22 08:19> Time: 08:18 <ELYSE Elmore - Last Filed: 04/16/22 08:19> Additional Reevaluation(s): Patient re-evaluated by crisis. Patient is an inpatient Section 12 bed search <Audrey Garcia NP - Last Filed: 04/16/22 20:44> MDM - Psych MDM Narrative Medical decision making narrative: 1540 42-year-old female brought in on a Section 12 for violating Velasquez's orders, non med compliance, delusions, thoughts of self-harm. She has presented with a similar history in the past Physical examination benign. Patient refusing to answer questions. Plan at this time is medical clearance and evaluation by the behavioral health team. Patient refusing labs at this time, vitals <ELYSE Gan - Last Filed: 04/16/22 02:15> Medical Records Attestation: I reviewed the patient's medical records. <ELYSE Gan - Last Filed: 04/16/22 02:15> Lab Data Attestation: I reviewed the patient's lab results. <ELYSE Gan - Last Filed: 04/16/22 02:15> Result diagrams: : 04/16/22 08:27 04/16/22 08:27 <ELYSE Gan - Last Filed: 04/16/22 02:15> Labs: Lab Results 04/15/22 04/16/22 04/16/22 Range/Units 15:56 07:33 08:27 WBC (4.8-10.8) X10*3/uL RBC (4.20-5.50) X10*6/uL Hgb (12.0-16.0) g/dl Hct (37.0-47.0) % MCV (80.0-98.0) fL MCH (27.0-33.0) pg MCHC (31.0-35.0) g/dl RDW (11.0-16.0) % Plt Count (160-400) X10*3/uL MPV (9.4-12.3) fL Immature Gran % (Auto) (0.0-0.4) % Neut % (Auto) (45-73) % Lymph % (Auto) (20-40) % [place] % (Auto) (2-11) % Eos % (Auto) (0-4) % Baso % (Auto) (0-2) % Lymph # (Auto) (1.2-4.9) X10*3/uL [place] # (Auto) (0.1-1.2) X10*3/uL Eos # (Auto) (0.0-0.4) X10*3/uL Baso # (Auto) (0.0-0.2) X10*3/uL Abs Immat Gran (auto) (0.00-0.03) X10*3/uL Absolute Neuts (auto) (2.0-8.3) x10*3/uL Absolute Nucleated RBC (0.0-0.012) X10*3/uL Nucleated RBC % (auto) (0.0-0.2) /100WBC Sodium 138 (135-145) mmol/L Potassium 4.7 (3.3-5.1) mmol/L Chloride 110 H (96-108) mmol/L Carbon Dioxide 23 (22-29) mmol/L Anion Gap 10 L (12-20) BUN 13 (9-16) mg/dL Creatinine 0.86 (0.5-1.4) mg/dL Estim Creat Clear Calc 80.7 Estimated GFR > 60 Random Glucose 108 (60-115) mg/dL Calcium 9.1 (8.4-10.2) mg/dL Total Bilirubin 0.3 (0.0-1.0) mg/dL AST 13 (5-31) U/L ALT 9 (0-31) U/L Alkaline Phosphatase 103 (39-117) U/L Total Protein 7.1 (6.5-8.0) g/dL Albumin 3.8 (3.5-5.0) g/dL Urine Color Cancelled Urine Appearance Cancelled Urine pH Cancelled Ur Specific [place] Cancelled Urine Protein Cancelled Urine Glucose (UA) Cancelled Urine Ketones Cancelled Urine Blood Cancelled Urine Nitrite Cancelled Ur Leukocyte Esterase Cancelled COVID-19 (GAUTAM) Negative (Negative) COVID-19 Clin Com See Note 04/16/22 Range/Units 08:27 WBC 6.1 (4.8-10.8) X10*3/uL RBC 4.17 L (4.20-5.50) X10*6/uL Hgb 12.1 (12.0-16.0) g/dl Hct 37.5 (37.0-47.0) % MCV 89.9 (80.0-98.0) fL MCH 29.0 (27.0-33.0) pg MCHC 32.3 (31.0-35.0) g/dl RDW 12.7 (11.0-16.0) % Plt Count 275 (160-400) X10*3/uL MPV 10.3 (9.4-12.3) fL Immature Gran % (Auto) 0.5 H (0.0-0.4) % Neut % (Auto) 66.3 (45-73) % Lymph % (Auto) 22.6 (20-40) % [place] % (Auto) 7.9 (2-11) % Eos % (Auto) 2.0 (0-4) % Baso % (Auto) 0.7 (0-2) % Lymph # (Auto) 1.4 (1.2-4.9) X10*3/uL [place] # (Auto) 0.5 (0.1-1.2) X10*3/uL Eos # (Auto) 0.1 (0.0-0.4) X10*3/uL Baso # (Auto) 0.0 (0.0-0.2) X10*3/uL Abs Immat Gran (auto) 0.03 (0.00-0.03) X10*3/uL Absolute Neuts (auto) 4.0 (2.0-8.3) x10*3/uL Absolute Nucleated RBC 0.000 (0.0-0.012) X10*3/uL Nucleated RBC % (auto) 0.0 (0.0-0.2) /100WBC Sodium (135-145) mmol/L Potassium (3.3-5.1) mmol/L Chloride (96-108) mmol/L Carbon Dioxide (22-29) mmol/L Anion Gap (12-20) BUN (9-16) mg/dL Creatinine (0.5-1.4) mg/dL Estim Creat Clear Calc Estimated GFR Random Glucose (60-115) mg/dL Calcium (8.4-10.2) mg/dL Total Bilirubin (0.0-1.0) mg/dL AST (5-31) U/L ALT (0-31) U/L Alkaline Phosphatase (39-117) U/L Total Protein (6.5-8.0) g/dL Albumin (3.5-5.0) g/dL Urine Color Urine Appearance Urine pH Ur Specific [place] Urine Protein Urine Glucose (UA) Urine Ketones Urine Blood Urine Nitrite Ur Leukocyte Esterase COVID-19 (GAUTAM) (Negative) COVID-19 Clin Com <ELYSE Gan - Last Filed: 04/16/22 02:15> Lab Results 04/15/22 04/16/22 04/16/22 Range/Units 15:56 07:33 08:27 WBC (4.8-10.8) X10*3/uL RBC (4.20-5.50) X10*6/uL Hgb (12.0-16.0) g/dl Hct (37.0-47.0) % MCV (80.0-98.0) fL MCH (27.0-33.0) pg MCHC (31.0-35.0) g/dl RDW (11.0-16.0) % Plt Count (160-400) X10*3/uL MPV (9.4-12.3) fL Immature Gran % (Auto) (0.0-0.4) % Neut % (Auto) (45-73) % Lymph % (Auto) (20-40) % [place] % (Auto) (2-11) % Eos % (Auto) (0-4) % Baso % (Auto) (0-2) % Lymph # (Auto) (1.2-4.9) X10*3/uL [place] # (Auto) (0.1-1.2) X10*3/uL Eos # (Auto) (0.0-0.4) X10*3/uL Baso # (Auto) (0.0-0.2) X10*3/uL Abs Immat Gran (auto) (0.00-0.03) X10*3/uL Absolute Neuts (auto) (2.0-8.3) x10*3/uL Absolute Nucleated RBC (0.0-0.012) X10*3/uL Nucleated RBC % (auto) (0.0-0.2) /100WBC Sodium 138 (135-145) mmol/L Potassium 4.7 (3.3-5.1) mmol/L Chloride 110 H (96-108) mmol/L Carbon Dioxide 23 (22-29) mmol/L Anion Gap 10 L (12-20) BUN 13 (9-16) mg/dL Creatinine 0.86 (0.5-1.4) mg/dL Estim Creat Clear Calc 80.7 Estimated GFR > 60 Random Glucose 108 (60-115) mg/dL Calcium 9.1 (8.4-10.2) mg/dL Total Bilirubin 0.3 (0.0-1.0) mg/dL AST 13 (5-31) U/L ALT 9 (0-31) U/L Alkaline Phosphatase 103 (39-117) U/L Total Protein 7.1 (6.5-8.0) g/dL Albumin 3.8 (3.5-5.0) g/dL Urine Color Cancelled Urine Appearance Cancelled Urine pH Cancelled Ur Specific [place] Cancelled Urine Protein Cancelled Urine Glucose (UA) Cancelled Urine Ketones Cancelled Urine Blood Cancelled Urine Nitrite Cancelled Ur Leukocyte Esterase Cancelled COVID-19 (GAUTAM) Negative (Negative) COVID-19 Clin Com See Note 04/16/22 Range/Units 08:27 WBC 6.1 (4.8-10.8) X10*3/uL RBC 4.17 L (4.20-5.50) X10*6/uL Hgb 12.1 (12.0-16.0) g/dl Hct 37.5 (37.0-47.0) % MCV 89.9 (80.0-98.0) fL MCH 29.0 (27.0-33.0) pg MCHC 32.3 (31.0-35.0) g/dl RDW 12.7 (11.0-16.0) % Plt Count 275 (160-400) X10*3/uL MPV 10.3 (9.4-12.3) fL Immature Gran % (Auto) 0.5 H (0.0-0.4) % Neut % (Auto) 66.3 (45-73) % Lymph % (Auto) 22.6 (20-40) % [place] % (Auto) 7.9 (2-11) % Eos % (Auto) 2.0 (0-4) % Baso % (Auto) 0.7 (0-2) % Lymph # (Auto) 1.4 (1.2-4.9) X10*3/uL [place] # (Auto) 0.5 (0.1-1.2) X10*3/uL Eos # (Auto) 0.1 (0.0-0.4) X10*3/uL Baso # (Auto) 0.0 (0.0-0.2) X10*3/uL Abs Immat Gran (auto) 0.03 (0.00-0.03) X10*3/uL Absolute Neuts (auto) 4.0 (2.0-8.3) x10*3/uL Absolute Nucleated RBC 0.000 (0.0-0.012) X10*3/uL Nucleated RBC % (auto) 0.0 (0.0-0.2) /100WBC Sodium (135-145) mmol/L Potassium (3.3-5.1) mmol/L Chloride (96-108) mmol/L Carbon Dioxide (22-29) mmol/L Anion Gap (12-20) BUN (9-16) mg/dL Creatinine (0.5-1.4) mg/dL Estim Creat Clear Calc Estimated GFR Random Glucose (60-115) mg/dL Calcium (8.4-10.2) mg/dL Total Bilirubin (0.0-1.0) mg/dL AST (5-31) U/L ALT (0-31) U/L Alkaline Phosphatase (39-117) U/L Total Protein (6.5-8.0) g/dL Albumin (3.5-5.0) g/dL Urine Color Urine Appearance Urine pH Ur Specific [place] Urine Protein Urine Glucose (UA) Urine Ketones Urine Blood Urine Nitrite Ur Leukocyte Esterase COVID-19 (GAUTAM) (Negative) COVID-19 Clin Com <ELYSE Elmore - Last Filed: 04/16/22 08:19> Lab Results 04/15/22 04/16/22 04/16/22 Range/Units 15:56 07:33 08:27 WBC (4.8-10.8) X10*3/uL RBC (4.20-5.50) X10*6/uL Hgb (12.0-16.0) g/dl Hct (37.0-47.0) % MCV (80.0-98.0) fL MCH (27.0-33.0) pg MCHC (31.0-35.0) g/dl RDW (11.0-16.0) % Plt Count (160-400) X10*3/uL MPV (9.4-12.3) fL Immature Gran % (Auto) (0.0-0.4) % Neut % (Auto) (45-73) % Lymph % (Auto) (20-40) % [place] % (Auto) (2-11) % Eos % (Auto) (0-4) % Baso % (Auto) (0-2) % Lymph # (Auto) (1.2-4.9) X10*3/uL [place] # (Auto) (0.1-1.2) X10*3/uL Eos # (Auto) (0.0-0.4) X10*3/uL Baso # (Auto) (0.0-0.2) X10*3/uL Abs Immat Gran (auto) (0.00-0.03) X10*3/uL Absolute Neuts (auto) (2.0-8.3) x10*3/uL Absolute Nucleated RBC (0.0-0.012) X10*3/uL Nucleated RBC % (auto) (0.0-0.2) /100WBC Sodium 138 (135-145) mmol/L Potassium 4.7 (3.3-5.1) mmol/L Chloride 110 H (96-108) mmol/L Carbon Dioxide 23 (22-29) mmol/L Anion Gap 10 L (12-20) BUN 13 (9-16) mg/dL Creatinine 0.86 (0.5-1.4) mg/dL Estim Creat Clear Calc 80.7 Estimated GFR > 60 Random Glucose 108 (60-115) mg/dL Calcium 9.1 (8.4-10.2) mg/dL Total Bilirubin 0.3 (0.0-1.0) mg/dL AST 13 (5-31) U/L ALT 9 (0-31) U/L Alkaline Phosphatase 103 (39-117) U/L Total Protein 7.1 (6.5-8.0) g/dL Albumin 3.8 (3.5-5.0) g/dL Urine Color Cancelled Urine Appearance Cancelled Urine pH Cancelled Ur Specific [place] Cancelled Urine Protein Cancelled Urine Glucose (UA) Cancelled Urine Ketones Cancelled Urine Blood Cancelled Urine Nitrite Cancelled Ur Leukocyte Esterase Cancelled COVID-19 (GAUTAM) Negative (Negative) COVID-19 Clin Com See Note 04/16/22 Range/Units 08:27 WBC 6.1 (4.8-10.8) X10*3/uL RBC 4.17 L (4.20-5.50) X10*6/uL Hgb 12.1 (12.0-16.0) g/dl Hct 37.5 (37.0-47.0) % MCV 89.9 (80.0-98.0) fL MCH 29.0 (27.0-33.0) pg MCHC 32.3 (31.0-35.0) g/dl RDW 12.7 (11.0-16.0) % Plt Count 275 (160-400) X10*3/uL MPV 10.3 (9.4-12.3) fL Immature Gran % (Auto) 0.5 H (0.0-0.4) % Neut % (Auto) 66.3 (45-73) % Lymph % (Auto) 22.6 (20-40) % [place] % (Auto) 7.9 (2-11) % Eos % (Auto) 2.0 (0-4) % Baso % (Auto) 0.7 (0-2) % Lymph # (Auto) 1.4 (1.2-4.9) X10*3/uL [place] # (Auto) 0.5 (0.1-1.2) X10*3/uL Eos # (Auto) 0.1 (0.0-0.4) X10*3/uL Baso # (Auto) 0.0 (0.0-0.2) X10*3/uL Abs Immat Gran (auto) 0.03 (0.00-0.03) X10*3/uL Absolute Neuts (auto) 4.0 (2.0-8.3) x10*3/uL Absolute Nucleated RBC 0.000 (0.0-0.012) X10*3/uL Nucleated RBC % (auto) 0.0 (0.0-0.2) /100WBC Sodium (135-145) mmol/L Potassium (3.3-5.1) mmol/L Chloride (96-108) mmol/L Carbon Dioxide (22-29) mmol/L Anion Gap (12-20) BUN (9-16) mg/dL Creatinine (0.5-1.4) mg/dL Estim Creat Clear Calc Estimated GFR Random Glucose (60-115) mg/dL Calcium (8.4-10.2) mg/dL Total Bilirubin (0.0-1.0) mg/dL AST (5-31) U/L ALT (0-31) U/L Alkaline Phosphatase (39-117) U/L Total Protein (6.5-8.0) g/dL Albumin (3.5-5.0) g/dL Urine Color Urine Appearance Urine pH Ur Specific [place] Urine Protein Urine Glucose (UA) Urine Ketones Urine Blood Urine Nitrite Ur Leukocyte Esterase COVID-19 (GAUTAM) (Negative) COVID-19 Clin Com <Audrey Garcia, [employer] - Last Filed: 04/16/22 20:44> Critical Care Time Critical Care Time Critical Care Time: No <ELYSE Gan - Last Filed: 04/16/22 02:15> Discharge Plan Discharge Clinical Impression: Schizophrenia <ELYSE Gan - Last Filed: 04/16/22 02:15> Patient Disposition: Admitted As Inpatient <ELYSE Gan - Last Filed: 04/16/22 02:15>
[2022-04-15 16:22] LABS: COVID-19 Test Negative (Negative); IDNOW Serial# 9DB6401D
[2022-04-15 21:06] VITALS: BP 113/82; PULSE 88; RESP 16; TEMP 37.4; O2SAT 97
[2022-04-16 02:42] VITALS: BP 126/57; PULSE 69; RESP 17; TEMP 36.8; O2SAT 95
--- NOTE | 2022-04-16 06:19 | PC.NURSE ---
Patient slept through the night, no distress observed/reported, patient disposition is section 12 inpatient bed search, refusing her lab order, isolative behavior but non concerning, med rec completed and MAR updated, VSS, will continue to monitor.
--- NOTE | 2022-04-16 07:08 | PC.NURSE ---
patient appears to remain asleep at present respirations are even and unlabored patient appears in no distress
[2022-04-16 07:36] VITALS: BP 119/74; PULSE 90; RESP 16; TEMP 37.3; O2SAT 99
[2022-04-16 08:32] LABS: MANUAL DIFF FLAG NO
[2022-04-16 08:39] LABS: Basophils Percent Auto 0.7 % (0-2); Eosinophils Absolute Auto 0.1 X10*3/uL (0.0-0.4); Hematocrit 37.5 % (37.0-47.0); Hemoglobin 12.1 g/dl (12.0-16.0); Imm Gran Abs Auto 0.03 X10*3/uL (0.00-0.03); Imm Gran Pct Auto 0.5 % (0.0-0.4); Lymphocytes Absolute Auto 1.4 X10*3/uL (1.2-4.9); Lymphocytes Percent Auto 22.6 % (20-40); Mean Corpuscular HGB Conc 32.3 g/dl (31.0-35.0); Mean Corpuscular Volume 89.9 fL (80.0-98.0); Mean Platelet Volume 10.3 fL (9.4-12.3); Monocytes Absolute Auto 0.5 X10*3/uL (0.1-1.2); Monocytes Percent Auto 7.9 % (2-11); Neutrophils Percent Auto 66.3 % (45-73); Platelet Count 275 X10*3/uL (160-400); Red Blood Count 4.17 X10*6/uL (4.20-5.50); Red Cell Distribution Width 12.7 % (11.0-16.0); White Blood Count 6.1 X10*3/uL (4.8-10.8)
[2022-04-16 08:51] LABS: Alanine Aminotransferase 9 U/L (0-31); Albumin Level 3.8 g/dL (3.5-5.0); Alkaline Phosphatase 103 U/L (39-117); Anion Gap 10 (12-20); Aspartate Amino Transferase 13 U/L (5-31); Bilirubin Total 0.3 mg/dL (0.0-1.0); Blood Urea Nitrogen 13 mg/dL (9-16); Calcium 9.1 mg/dL (8.4-10.2); Carbon Dioxide 23 mmol/L (22-29); Chloride 110 mmol/L (96-108); Creatinine Clr Calc Pharmacy 80.7; Estimated Glomerular Filt Rate > 60; Glucose Random 108 mg/dL (60-115); Potassium 4.7 mmol/L (3.3-5.1); Sodium 138 mmol/L (135-145); Total Protein 7.1 g/dL (6.5-8.0)
[2022-04-16] MEDS: dilTIAZem HCL 30 MG TABLET PO ×3 (09:26→19:57)
[2022-04-16] MEDS: Omeprazole 40 MG CAPSULE.DR PO (09:26)
[2022-04-16] MEDS: Loratadine 10 MG TABLET PO (09:27)
[2022-04-16] MEDS: Famotidine 20 MG TABLET PO ×2 (09:27→19:57)
[2022-04-16] MEDS: Sertraline HCL 100 MG TABLET 200 MG PO (09:27)
[2022-04-16 19:51] VITALS: BP 114/79; PULSE 68; RESP 18; TEMP 36.8; O2SAT 97
[2022-04-16] MEDS: OLANZapine 7.5 MG TABLET 15 MG PO (19:57)
[2022-04-16] MEDS: Topiramate 25 MG TABLET 50 MG PO (19:57)
--- NOTE | 2022-04-17 00:45 | PC.ADMIT ---
42 y.o bilingual female with a history of Schizophrenia and Unspecified Intellectual Disability, presented to the ED from jail with staff report of psychiatric decompensation and nonadherence of court -mandated/Velasquez's order medications. Providers reported ongoing concerns regarding Ro's current mental status;religiously preoccupied/ drawing witches,devils,weapons including guns and chain saws, blood, [employer], pentagrams, 3rd eyes, and naked bodies. They observed her wounding her head to release her 3rd eye and noted that she wasn't attending to her ADLs - Staff at the jail also reported that Ro had not showered in over 2 weeks. Staff further reported poor sleep and suspected purging of both food and Velasquez's Order antipsychotics.It was also reported that the pt had been struggling since November 2021 and was not her usual outgoing self . In the ED, the pt was cooperative with her medications. The pt is on a CV, arrived to the unit by wheel chair at approximately 2245. The pt was alert and oriented x 3, with a flat affect and quiet mood. The pt was cooperative with vital Signs which were WNL but refused to sign admission paperwork and participate in an admission assessment, saying, I am tired, where's my room? The pt did not endorse SI/HI/AH/VH, refused further response to questions and appeared relieved when she got to her room. TOX screen was not done, ETOH, Nicotine and other substance use not assessed due to pt refusing to cooperate. Nurse to Nurse completed prior to admission, Hospitalist notified of admission, orders obtained,treatment plan initiated, pt placed on 15 min safety checks.
[2022-04-17 06:47] VITALS: BP 128/72; PULSE 116; RESP 16; TEMP 36.2; O2SAT 99
[2022-04-17] MEDS: dilTIAZem HCL 30 MG TABLET PO ×3 (08:38→21:05)
[2022-04-17] MEDS: Sertraline HCL 100 MG TABLET 200 MG PO (08:38)
[2022-04-17] MEDS: Loratadine 10 MG TABLET PO (08:38)
[2022-04-17] MEDS: Omeprazole 40 MG CAPSULE.DR PO (08:38)
[2022-04-17] MEDS: Famotidine 20 MG TABLET PO ×2 (08:38→21:06)
[2022-04-17 14:45] VITALS: BP 111/76; PULSE 82
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
[2022-04-17] MEDS: traZODone HCL 50 MG TABLET PO (21:03)
[2022-04-17] MEDS: OLANZapine 7.5 MG TABLET 15 MG PO (21:04)
[2022-04-17 21:05] VITALS: BP 109/66; PULSE 72; TEMP 36.4
[2022-04-17] MEDS: Topiramate 25 MG TABLET 50 MG PO (21:05)
[2022-04-18] MEDS: dilTIAZem HCL 30 MG TABLET PO ×3 (09:17→20:43)
[2022-04-18] MEDS: Sertraline HCL 100 MG TABLET 200 MG PO (09:17)
[2022-04-18] MEDS: Famotidine 20 MG TABLET PO ×2 (09:18→20:44)
[2022-04-18] MEDS: Loratadine 10 MG TABLET PO (09:18)
[2022-04-18] MEDS: Omeprazole 40 MG CAPSULE.DR PO (09:18)
[2022-04-18 09:20] VITALS: BP 108/75; PULSE 81; RESP 18; TEMP 36.1; O2SAT 97
--- NOTE | 2022-04-18 12:49 | P.PNPSI_ITS ---
Subjective Subjective Date of Service: 04/18/22 Reason For Visit: Psychosis Interim History: Patient seen. Chart reviewed. Patient was paranoid and guarded. She was guarded, dismissive and irritable saying she feels well and she has no concerns. She reported she sleeps well. She denies SI. Compliant with medications. Says she showered. Review of Systems Review of Systems Constitutional : No Weight loss, No Fever, No Chills, No Fatigue, No Malaise ENT/Mouth : No sore throat, No Rhinorrhea Eyes: No Eye Pain, No Swelling, No Redness Cardiovascular : No Chest Pain, No SOB, No Dyspnea on Exertion, No Orthopnea, No Edema, No Palpitations Respiratory : No Cough, No Sputum, No Wheezing Gastrointestinal : No Nausea, No Vomiting, No Diarrhea, No Constipation, No abdominal Pain, No Hematochezia, No Melena Genitourinary : No Dysuria, No Urinary Frequency, No Hematuria, Musculoskeletal : No joint pain, No Myalgias, No Joint Swelling Skin : No Skin Lesions, No rash Neuro : No Weakness, No Numbness, No Dizziness, No Headache Psych : No Anxiety/Panic, No Depression All other systems reviewed and are negative Yes Unobtainable due to mental status Reports behavioral changes Psychiatric: Reports anxiety, Reports behavioral changes, Reports anhedonia, Reports homicidal ideation (denies) and Reports suicidal ideation (denies) Mental Status Exam Mental Status Exam Patient Appearance: Appropriate Patient Orientation: Person and Place Level of Consciousness: Awake, Appropriate and Alert Patient Behavior: Guarded, Talkative, Cooperative, Suspicious, Anxious, Fearful, Avoidant, Distractible and Good Eye Contact Mood Description: Constricted Affect Description: Constricted Patient Cognition Impaired: Yes Ability to Follow Directions: Good Speech Pattern: Spontaneous Speech and Soft-Spoken Memory Description: Intact Hallucinations: None Thought Content: positive for [place] and positive for Evasive Judgement: Poor Diagnostics Vital Signs (24Hr): Vital Signs - 24 hr 04/17/22 14:45 04/17/22 21:05 04/18/22 09:20 Temperature 97.6 F 97.0 F Pulse Rate 82 72 81 Respiratory Rate 18 Blood Pressure 111/76 109/66 108/75 Pulse Oximetry 97 BMI result Body Mass Index 41.5 Labs Results: 04/16/22 08:27 04/16/22 08:27 Labs: Laboratory Results - last 48 hr 04/16/22 07:33 Urine Color Cancelled Urine Appearance Cancelled Urine pH Cancelled Ur Specific [place] Cancelled Urine Protein Cancelled Urine Glucose (UA) Cancelled Urine Ketones Cancelled Urine Blood Cancelled Urine Nitrite Cancelled Ur Leukocyte Esterase Cancelled Medications Medications Current Medications Acetaminophen (Acetaminophen 325 Mg Tablet) 650 mg PO Q6H PRN PRN Reason: Headache/Pain Mild Scale (1-3) Al Hydroxide/Mg Hydroxide (Magnesium Hydrox/Alum Hydrox 30 Ml Oral.Susp) 30 ml PO Q6H PRN PRN Reason: Heartburn/Nausea Albuterol Sulfate (Albuterol Sulfate 90 Mcg 8 Gm Inhaler) 2 puff INHALE Q4H PRN PRN Reason: Wheezing Diltiazem HCl (Diltiazem Hcl 30 Mg Tablet) 30 mg PO TID [facility]; Protocol Last Admin: 04/18/22 09:17 Dose: 30 mg Documented by: Famotidine (Famotidine 20 Mg Tablet) 20 mg PO BID [facility] Last Admin: 04/18/22 09:18 Dose: 20 mg Documented by: Hydroxyzine HCl (Hydroxyzine Hcl 25 Mg Tablet) 25 mg PO Q6H PRN PRN Reason: Anxiety Loratadine (Loratadine 10 Mg Tablet) 10 mg PO DAILY [facility] Last Admin: 04/18/22 09:18 Dose: 10 mg Documented by: Magnesium Hydroxide (Milk Of Magnesia 30 Ml Oral.Susp) 30 ml PO DAILY PRN PRN Reason: Constipation Olanzapine (Olanzapine 7.5 Mg Tablet) 15 mg PO BEDTIME [facility] Last Admin: 04/17/22 21:04 Dose: 15 mg Documented by: Omeprazole (Omeprazole 40 Mg Capsule.Dr) 40 mg PO DAILY [facility] Last Admin: 04/18/22 09:18 Dose: 40 mg Documented by: Sertraline HCl (Sertraline Hcl 100 Mg Tablet) 200 mg PO DAILY [facility] Last Admin: 04/18/22 09:17 Dose: 200 mg Documented by: Topiramate (Topiramate 25 Mg Tablet) 50 mg PO BEDTIME [facility] Last Admin: 04/17/22 21:05 Dose: 50 mg Documented by: Trazodone HCl (Trazodone Hcl 50 Mg Tablet) 50 mg PO BEDTIME PRN PRN Reason: Insomnia Last Admin: 04/17/22 21:03 Dose: 50 mg Documented by: Allergies Allergies Allergy/AdvReac Type Severity Reaction Status Date / Time Seasonal Allergies Allergy Intermediate Unknown Verified 04/17/22 18:22 Assessment & Plan Assessment & Plan (1) Schizophrenia: Status: Acute Code(s): F20.9 - Schizophrenia, unspecified (2) Intellectual disability: Status: Acute Code(s): F79 - Unspecified intellectual disabilities Plan 42 yo female, hx of schizophrenia, intellectual disability, sent in from her residential home due to decompensation since Nov 2021 with hospitalizations which would not make medication changes to [facility]. Pt today reports no symptoms of concern and reports nothing is wrong. 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 Labs-pt refused this a.m. Collateral contacts Behavioral observation. 04/18: continue treatment plan I spent minutes with the patient and/or on the patient floor today, greater than?50% of which was spent counseling/coordinating care. Reason for contiued inpatient stay Substantial Risk for: harm to self, harm to others and rapid decompensation
[2022-04-18 14:50] VITALS: BP 118/74; PULSE 78
[2022-04-18 20:35] VITALS: BP 115/70; PULSE 73; TEMP 36.1
[2022-04-18] MEDS: Topiramate 25 MG TABLET 50 MG PO (20:43)
[2022-04-18] MEDS: OLANZapine 7.5 MG TABLET 15 MG PO (20:44)
[2022-04-19] MEDS: Loratadine 10 MG TABLET PO (08:28)
[2022-04-19] MEDS: Sertraline HCL 100 MG TABLET 200 MG PO (08:28)
[2022-04-19] MEDS: Famotidine 20 MG TABLET PO ×2 (08:28→20:42)
[2022-04-19] MEDS: Omeprazole 40 MG CAPSULE.DR PO (08:28)
[2022-04-19] MEDS: dilTIAZem HCL 30 MG TABLET PO ×2 (08:28→15:02)
[2022-04-19 08:30] VITALS: BP 105/77; PULSE 122; RESP 18; TEMP 36.8; O2SAT 99
--- NOTE | 2022-04-19 11:05 | HO.PSYCHPN ---
Subjective Subjective Date of Service: 04/19/22 Reason For Visit: Psychosis Interim History: Patient seen. Chart reviewed. Patient was paranoid. She was guarded, dismissive and irritable. She says she feels OK and denies any concerns. She reported she sleeps well. She denies SI. Compliant with medications. Says she showered. Denies any symptoms but seems preoccupied and with intense affect. Review of Systems Review of Systems Constitutional : No Weight loss, No Fever, No Chills, No Fatigue, No Malaise ENT/Mouth : No sore throat, No Rhinorrhea Eyes: No Eye Pain, No Swelling, No Redness Cardiovascular : No Chest Pain, No SOB, No Dyspnea on Exertion, No Orthopnea, No Edema, No Palpitations Respiratory : No Cough, No Sputum, No Wheezing Gastrointestinal : No Nausea, No Vomiting, No Diarrhea, No Constipation, No abdominal Pain, No Hematochezia, No Melena Genitourinary : No Dysuria, No Urinary Frequency, No Hematuria, Musculoskeletal : No joint pain, No Myalgias, No Joint Swelling Skin : No Skin Lesions, No rash Neuro : No Weakness, No Numbness, No Dizziness, No Headache Psych : No Anxiety/Panic, No Depression All other systems reviewed and are negative Yes Unobtainable due to mental status Reports behavioral changes Psychiatric: Reports anxiety, Reports behavioral changes, Reports anhedonia, Reports homicidal ideation (denies) and Reports suicidal ideation (denies) Mental Status Exam Mental Status Exam Patient Appearance: Appropriate Patient Orientation: Person and Place Level of Consciousness: Awake, Appropriate and Alert Patient Behavior: Guarded, Cooperative, Suspicious, Anxious, Fearful, Avoidant, Distractible and Good Eye Contact (somewhat intense) Mood Description: Constricted Affect Description: Suspicious and Blunted Patient Cognition Impaired: Yes Ability to Follow Directions: Good Speech Pattern: Impoverished, Monotone, Spontaneous Speech and Soft-Spoken Memory Description: Intact Hallucinations: None Delusions: Paranoid Ideation Thought Process: Evasive Thought Content: positive for [place], positive for Poverty of Content and positive for Preoccupation Judgement: Fair Diagnostics Vital Signs (24Hr): Vital Signs - 24 hr 04/18/22 14:50 04/18/22 20:35 04/19/22 08:30 Temperature 97.0 F 98.3 F Pulse Rate 78 73 122 H Respiratory Rate 18 Blood Pressure 118/74 115/70 105/77 Pulse Oximetry 99 BMI result Body Mass Index 41.5 Labs Results: 04/16/22 08:27 04/16/22 08:27 Medications Medications Current Medications Acetaminophen (Acetaminophen 325 Mg Tablet) 650 mg PO Q6H PRN PRN Reason: Headache/Pain Mild Scale (1-3) Al Hydroxide/Mg Hydroxide (Magnesium Hydrox/Alum Hydrox 30 Ml Oral.Susp) 30 ml PO Q6H PRN PRN Reason: Heartburn/Nausea Albuterol Sulfate (Albuterol Sulfate 90 Mcg 8 Gm Inhaler) 2 puff INHALE Q4H PRN PRN Reason: Wheezing Diltiazem HCl (Diltiazem Hcl 30 Mg Tablet) 30 mg PO TID [facility]; Protocol Last Admin: 04/19/22 08:28 Dose: 30 mg Documented by: Famotidine (Famotidine 20 Mg Tablet) 20 mg PO BID [facility] Last Admin: 04/19/22 08:28 Dose: 20 mg Documented by: Hydroxyzine HCl (Hydroxyzine Hcl 25 Mg Tablet) 25 mg PO Q6H PRN PRN Reason: Anxiety Loratadine (Loratadine 10 Mg Tablet) 10 mg PO DAILY [facility] Last Admin: 04/19/22 08:28 Dose: 10 mg Documented by: Magnesium Hydroxide (Milk Of Magnesia 30 Ml Oral.Susp) 30 ml PO DAILY PRN PRN Reason: Constipation Olanzapine (Olanzapine 7.5 Mg Tablet) 15 mg PO BEDTIME [facility] Last Admin: 04/18/22 20:44 Dose: 15 mg Documented by: Omeprazole (Omeprazole 40 Mg Capsule.Dr) 40 mg PO DAILY [facility] Last Admin: 04/19/22 08:28 Dose: 40 mg Documented by: Sertraline HCl (Sertraline Hcl 100 Mg Tablet) 200 mg PO DAILY [facility] Last Admin: 04/19/22 08:28 Dose: 200 mg Documented by: Topiramate (Topiramate 25 Mg Tablet) 50 mg PO BEDTIME [facility] Last Admin: 04/18/22 20:43 Dose: 50 mg Documented by: Trazodone HCl (Trazodone Hcl 50 Mg Tablet) 50 mg PO BEDTIME PRN PRN Reason: Insomnia Last Admin: 04/17/22 21:03 Dose: 50 mg Documented by: Allergies Allergies Allergy/AdvReac Type Severity Reaction Status Date / Time Seasonal Allergies Allergy Intermediate Unknown Verified 04/17/22 18:22 Assessment & Plan Assessment & Plan (1) Schizophrenia: Status: Acute Code(s): F20.9 - Schizophrenia, unspecified (2) Intellectual disability: Status: Acute Code(s): F79 - Unspecified intellectual disabilities Plan 42 yo female, hx of schizophrenia, intellectual disability, sent in from her residential home due to decompensation since Nov 2021 with hospitalizations which would not make medication changes to [facility]. Pt today reports no symptoms of concern and reports nothing is wrong. 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 Labs-pt refused this a.m. Collateral contacts Behavioral observation. 04/18: continue treatment plan 04/19: continue treatment plan I spent minutes with the patient and/or on the patient floor today, greater than?50% of which was spent counseling/coordinating care. Reason for contiued inpatient stay Substantial Risk for: harm to others, inability to function and rapid decompensation
--- NOTE | 2022-04-19 13:06 | PC.NURSE ---
T/w has asked pt to answer questions for [employer]. pt has declined x3 days.
[2022-04-19 15:05] VITALS: BP 111/74; PULSE 84
[2022-04-19] MEDS: Topiramate 25 MG TABLET 50 MG PO (20:42)
[2022-04-19] MEDS: OLANZapine 7.5 MG TABLET 15 MG PO (20:42)
[2022-04-20] MEDS: dilTIAZem HCL 30 MG TABLET PO ×2 (09:06→14:49)
[2022-04-20] MEDS: Sertraline HCL 100 MG TABLET 200 MG PO (09:07)
[2022-04-20] MEDS: Loratadine 10 MG TABLET PO (09:07)
[2022-04-20] MEDS: Famotidine 20 MG TABLET PO ×2 (09:07→20:19)
[2022-04-20] MEDS: Omeprazole 40 MG CAPSULE.DR PO (09:07)
--- NOTE | 2022-04-20 13:14 | P.PNPSI_ITS ---
Subjective Subjective Date of Service: 04/20/22 Reason For Visit: Psychosis Interim History: Patient seen. Chart reviewed. Patient was paranoid. She continues guarded, dismissive. Denying any symptoms. She says she feels OK and denies any concerns. She reported she sleeps well. She denies SI. Compliant with medications. Says she showered. Denies any symptoms but seems preoccupied and with intense affect. Asking about discharge. Review of Systems Review of Systems Constitutional : No Weight loss, No Fever, No Chills, No Fatigue, No Malaise ENT/Mouth : No sore throat, No Rhinorrhea Eyes: No Eye Pain, No Swelling, No Redness Cardiovascular : No Chest Pain, No SOB, No Dyspnea on Exertion, No Orthopnea, No Edema, No Palpitations Respiratory : No Cough, No Sputum, No Wheezing Gastrointestinal : No Nausea, No Vomiting, No Diarrhea, No Constipation, No abdominal Pain, No Hematochezia, No Melena Genitourinary : No Dysuria, No Urinary Frequency, No Hematuria, Musculoskeletal : No joint pain, No Myalgias, No Joint Swelling Skin : No Skin Lesions, No rash Neuro : No Weakness, No Numbness, No Dizziness, No Headache Psych : No Anxiety/Panic, No Depression All other systems reviewed and are negative Yes Unobtainable due to mental status Reports behavioral changes Psychiatric: Reports anxiety, Reports behavioral changes, Reports anhedonia, Reports homicidal ideation (denies) and Reports suicidal ideation (denies) Mental Status Exam Mental Status Exam Patient Appearance: Appropriate Patient Orientation: Person and Place Level of Consciousness: Awake, Appropriate and Alert Patient Behavior: Guarded, Cooperative, Suspicious, Anxious, Fearful, Avoidant, Distractible and Good Eye Contact (somewhat intense) Mood Description: Constricted Affect Description: Suspicious and Blunted Patient Cognition Impaired: Yes Ability to Follow Directions: Good Speech Pattern: Impoverished, Monotone, Spontaneous Speech and Soft-Spoken Memory Description: Intact Diagnostics Vital Signs (24Hr): Vital Signs - 24 hr 04/19/22 15:05 Pulse Rate 84 Blood Pressure 111/74 BMI result Body Mass Index 41.5 Labs Results: 04/16/22 08:27 04/16/22 08:27 Medications Medications Current Medications Acetaminophen (Acetaminophen 325 Mg Tablet) 650 mg PO Q6H PRN PRN Reason: Headache/Pain Mild Scale (1-3) Al Hydroxide/Mg Hydroxide (Magnesium Hydrox/Alum Hydrox 30 Ml Oral.Susp) 30 ml PO Q6H PRN PRN Reason: Heartburn/Nausea Albuterol Sulfate (Albuterol Sulfate 90 Mcg 8 Gm Inhaler) 2 puff INHALE Q4H PRN PRN Reason: Wheezing Diltiazem HCl (Diltiazem Hcl 30 Mg Tablet) 30 mg PO TID [facility]; Protocol Last Admin: 04/20/22 09:06 Dose: 30 mg Documented by: Famotidine (Famotidine 20 Mg Tablet) 20 mg PO BID [facility] Last Admin: 04/20/22 09:07 Dose: 20 mg Documented by: Hydroxyzine HCl (Hydroxyzine Hcl 25 Mg Tablet) 25 mg PO Q6H PRN PRN Reason: Anxiety Loratadine (Loratadine 10 Mg Tablet) 10 mg PO DAILY [facility] Last Admin: 04/20/22 09:07 Dose: 10 mg Documented by: Magnesium Hydroxide (Milk Of Magnesia 30 Ml Oral.Susp) 30 ml PO DAILY PRN PRN Reason: Constipation Olanzapine (Olanzapine 7.5 Mg Tablet) 15 mg PO BEDTIME [facility] Last Admin: 04/19/22 20:42 Dose: 15 mg Documented by: Omeprazole (Omeprazole 40 Mg Capsule.Dr) 40 mg PO DAILY [facility] Last Admin: 04/20/22 09:07 Dose: 40 mg Documented by: Sertraline HCl (Sertraline Hcl 100 Mg Tablet) 200 mg PO DAILY [facility] Last Admin: 04/20/22 09:07 Dose: 200 mg Documented by: Topiramate (Topiramate 25 Mg Tablet) 50 mg PO BEDTIME [facility] Last Admin: 04/19/22 20:42 Dose: 50 mg Documented by: Trazodone HCl (Trazodone Hcl 50 Mg Tablet) 50 mg PO BEDTIME PRN PRN Reason: Insomnia Last Admin: 04/17/22 21:03 Dose: 50 mg Documented by: Allergies Allergies Allergy/AdvReac Type Severity Reaction Status Date / Time Seasonal Allergies Allergy Intermediate Unknown Verified 04/17/22 18:22 Assessment & Plan Assessment & Plan (1) Schizophrenia: Status: Acute Code(s): F20.9 - Schizophrenia, unspecified (2) Intellectual disability: Status: Acute Code(s): F79 - Unspecified intellectual disabilities Plan 42 yo female, hx of schizophrenia, intellectual disability, sent in from her residential home due to decompensation since Nov 2021 with hospitalizations which would not make medication changes to [facility]. Pt today reports no symptoms of concern and reports nothing is wrong. 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 Labs-pt refused this a.m. Collateral contacts Behavioral observation. 04/18: continue treatment plan 04/19: continue treatment plan 04/20 continue treatment plan I spent minutes with the patient and/or on the patient floor today, greater than?50% of which was spent counseling/coordinating care. Reason for contiued inpatient stay Substantial Risk for: harm to others, inability to function and rapid decompensation
[2022-04-20] MEDS: OLANZapine 7.5 MG TABLET 15 MG PO (20:19)
[2022-04-20] MEDS: Topiramate 25 MG TABLET 50 MG PO (20:20)
[2022-04-21] MEDS: Omeprazole 40 MG CAPSULE.DR PO (09:45)
[2022-04-21] MEDS: Sertraline HCL 100 MG TABLET 200 MG PO (09:45)
[2022-04-21] MEDS: Loratadine 10 MG TABLET PO (09:45)
[2022-04-21] MEDS: Famotidine 20 MG TABLET PO ×2 (09:45→20:36)
--- NOTE | 2022-04-21 17:27 | P.PNPSI_ITS ---
Subjective Subjective Date of Service: 04/21/22 Reason For Visit: Psychosis Subjective Notes: Conditional Voluntary Healthcare Proxy: No Guardianship: Yes (Kaden, no specific medications indicated) Medical Problems Affecting Mental Status: No Interim History: Refusing Diltiazem/Vital Signs, accepting other medications. Found to be paranoid, distant and guarded over the weekend. Today, met with pt and Ector YOUNG. Pt asks for discharge. She appears brighter vs our meeting on 04/17 and less guarded, more forthcoming but without much detail to be helpful. [facility] sent copy of Velasquez's guardianship monitor from 06/23/16-without any indication of a medication list. Discussed with pt a team/family meeting to review concerns and begin to plan for med changes/discharge. She agrees to this meeting. Denies questions or concerns, comfortable on the unit she reports. Medication Compliance: Yes (non-compliant with diltiazem and vital sign monitoring) Side effects from medications: No Attending Groups: Intermittent Review of Systems Acute medical concerns: No Medical Review of Systems: unchanged Review of Systems Psychiatric: Reports irritability, Reports paranoia and Reports suicidal ideation (denies) Mental Status Exam Mental Status Exam Patient Appearance: Appropriate Patient Orientation: Person, Place, Time and Situation Level of Consciousness: Alert Patient Behavior: Talkative, Cooperative and Good Eye Contact Mood Description: Withdrawn Affect Description: Constricted Patient Cognition Impaired: No Ability to Follow Directions: Good Speech Pattern: Spontaneous Speech Memory Description: Episodic Impaired Hallucinations: None Delusions: Paranoid Ideation Perceptual Disturbances: Depersonalization and Derealization Thought Process: Goal Oriented and Evasive Thought Content: positive for Goal Oriented, positive for Evasive and positive for Suicidal Ideation (denies) Depressive Symptoms: Increased Irritability and Thoughts of /Suicide (denies) Judgement: Fair Diagnostics Vital Signs (24Hr): BMI result Body Mass Index 41.5 Labs Results: 04/16/22 08:27 04/16/22 08:27 Medications Medications Current Medications Acetaminophen (Acetaminophen 325 Mg Tablet) 650 mg PO Q6H PRN PRN Reason: Headache/Pain Mild Scale (1-3) Al Hydroxide/Mg Hydroxide (Magnesium Hydrox/Alum Hydrox 30 Ml Oral.Susp) 30 ml PO Q6H PRN PRN Reason: Heartburn/Nausea Albuterol Sulfate (Albuterol Sulfate 90 Mcg 8 Gm Inhaler) 2 puff INHALE Q4H PRN PRN Reason: Wheezing Diltiazem HCl (Diltiazem Hcl 30 Mg Tablet) 30 mg PO TID [facility]; Protocol Last Admin: 04/21/22 15:07 Dose: Not Given Documented by: Famotidine (Famotidine 20 Mg Tablet) 20 mg PO BID [facility] Last Admin: 04/21/22 09:45 Dose: 20 mg Documented by: Hydroxyzine HCl (Hydroxyzine Hcl 25 Mg Tablet) 25 mg PO Q6H PRN PRN Reason: Anxiety Loratadine (Loratadine 10 Mg Tablet) 10 mg PO DAILY [facility] Last Admin: 04/21/22 09:45 Dose: 10 mg Documented by: Magnesium Hydroxide (Milk Of Magnesia 30 Ml Oral.Susp) 30 ml PO DAILY PRN PRN Reason: Constipation Olanzapine (Olanzapine 7.5 Mg Tablet) 15 mg PO BEDTIME [facility] Last Admin: 04/20/22 20:19 Dose: 15 mg Documented by: Omeprazole (Omeprazole 40 Mg Capsule.Dr) 40 mg PO DAILY [facility] Last Admin: 04/21/22 09:45 Dose: 40 mg Documented by: Sertraline HCl (Sertraline Hcl 100 Mg Tablet) 200 mg PO DAILY [facility] Last Admin: 04/21/22 09:45 Dose: 200 mg Documented by: Topiramate (Topiramate 25 Mg Tablet) 50 mg PO BEDTIME [facility] Last Admin: 04/20/22 20:20 Dose: 50 mg Documented by: Trazodone HCl (Trazodone Hcl 50 Mg Tablet) 50 mg PO BEDTIME PRN PRN Reason: Insomnia Last Admin: 04/17/22 21:03 Dose: 50 mg Documented by: Allergies Allergies Allergy/AdvReac Type Severity Reaction Status Date / Time Seasonal Allergies Allergy Intermediate Unknown Verified 04/17/22 18:22 Assessment & Plan Assessment & Plan (1) Schizophrenia: Status: Acute Code(s): F20.9 - Schizophrenia, unspecified (2) Intellectual disability: Status: Acute Code(s): F79 - Unspecified intellectual disabilities Plan 42 yo female, hx of schizophrenia, intellectual disability, sent in from her residential home due to decompensation since Nov 2021 with hospitalizations which would not make medication changes to NORMAN. Pt today reports no symptoms of concern and reports nothing is wrong. 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 Labs-pt refused this a.m. Collateral contacts Behavioral observation. 04/18: continue treatment plan 04/19: continue treatment plan 04/20 continue treatment plan 04/21/22- Team/family meeting to review current concerns, clarify parameters of Alfonso guardianship as no one can produce a copy of the guardianship and discharge planning. I spent minutes with the patient and/or on the patient floor today, greater than?50% of which was spent counseling/coordinating care. Patient educated on: therapeutic strategies Informed Consent: further education needed Reason for contiued inpatient stay Substantial Risk for: inability to function and rapid decompensation
[2022-04-21] MEDS: OLANZapine 7.5 MG TABLET 15 MG PO (20:30)
[2022-04-21] MEDS: dilTIAZem HCL 30 MG TABLET PO (20:36)
[2022-04-21] MEDS: Topiramate 25 MG TABLET 50 MG PO (20:36)
[2022-04-22 09:39] VITALS: BP 118/70; PULSE 111; TEMP 37.2; O2SAT 98
[2022-04-22] MEDS: Sertraline HCL 100 MG TABLET 200 MG PO (10:00)
[2022-04-22] MEDS: dilTIAZem HCL 30 MG TABLET PO ×3 (10:00→21:17)
[2022-04-22] MEDS: Omeprazole 40 MG CAPSULE.DR PO (10:00)
[2022-04-22] MEDS: Famotidine 20 MG TABLET PO ×2 (10:00→21:18)
[2022-04-22] MEDS: Loratadine 10 MG TABLET PO (10:01)
--- NOTE | 2022-04-22 14:19 | HO.PSYCHPN ---
Subjective Subjective Date of Service: 04/22/22 Reason For Visit: Psychosis Subjective Notes: Conditional Voluntary Healthcare Proxy: No Guardianship: No Medical Problems Affecting Mental Status: No Interim History: I am OK. Denies current sx or concerns. Pleasant, spontaneous smiling Pt in bed, responds to questions, minimal initiation of dialogue. Team meeting with out pt providers 04/24 12pm. Velasquez's order received is a copy of the monitor from 2016. OP team asked to bring an updated report in. No medication changes as a result of the absence of this document for guidance and pt not exhibiting critical sx of concern requiring significant changes. Pt denies need for change. Medication Compliance: Yes Side effects from medications: No Attending Groups: No Review of Systems Acute medical concerns: No Medical Review of Systems: unchanged Review of Systems Psychiatric: Reports no additional psychiatric complaints Mental Status Exam Mental Status Exam Patient Appearance: Appropriate Patient Orientation: Person, Place, Time and Situation Level of Consciousness: Alert Patient Behavior: Talkative, Cooperative and Good Eye Contact Mood Description: Withdrawn Affect Description: Constricted Patient Cognition Impaired: No Ability to Follow Directions: Good Speech Pattern: Spontaneous Speech Memory Description: Episodic Impaired Hallucinations: None Delusions: Paranoid Ideation Perceptual Disturbances: Depersonalization and Derealization Thought Process: Goal Oriented and Evasive Thought Content: positive for Goal Oriented, positive for Evasive and positive for Suicidal Ideation (denies) Depressive Symptoms: Increased Irritability and Thoughts of /Suicide (denies) Judgement: Fair Diagnostics Vital Signs (24Hr): Vital Signs - 24 hr 04/22/22 09:39 Temperature 98.9 F Pulse Rate 111 H Blood Pressure 118/70 Pulse Oximetry 98 BMI result Body Mass Index 41.5 Labs Results: 04/16/22 08:27 04/16/22 08:27 Medications Medications Current Medications Acetaminophen (Acetaminophen 325 Mg Tablet) 650 mg PO Q6H PRN PRN Reason: Headache/Pain Mild Scale (1-3) Al Hydroxide/Mg Hydroxide (Magnesium Hydrox/Alum Hydrox 30 Ml Oral.Susp) 30 ml PO Q6H PRN PRN Reason: Heartburn/Nausea Albuterol Sulfate (Albuterol Sulfate 90 Mcg 8 Gm Inhaler) 2 puff INHALE Q4H PRN PRN Reason: Wheezing Diltiazem HCl (Diltiazem Hcl 30 Mg Tablet) 30 mg PO TID [facility]; Protocol Last Admin: 04/22/22 10:00 Dose: 30 mg Documented by: Famotidine (Famotidine 20 Mg Tablet) 20 mg PO BID [facility] Last Admin: 04/22/22 10:00 Dose: 20 mg Documented by: Hydroxyzine HCl (Hydroxyzine Hcl 25 Mg Tablet) 25 mg PO Q6H PRN PRN Reason: Anxiety Loratadine (Loratadine 10 Mg Tablet) 10 mg PO DAILY [facility] Last Admin: 04/22/22 10:01 Dose: 10 mg Documented by: Magnesium Hydroxide (Milk Of Magnesia 30 Ml Oral.Susp) 30 ml PO DAILY PRN PRN Reason: Constipation Olanzapine (Olanzapine 7.5 Mg Tablet) 15 mg PO BEDTIME [facility] Last Admin: 04/21/22 20:30 Dose: 15 mg Documented by: Omeprazole (Omeprazole 40 Mg Capsule.Dr) 40 mg PO DAILY [facility] Last Admin: 04/22/22 10:00 Dose: 40 mg Documented by: Sertraline HCl (Sertraline Hcl 100 Mg Tablet) 200 mg PO DAILY [facility] Last Admin: 04/22/22 10:00 Dose: 200 mg Documented by: Topiramate (Topiramate 25 Mg Tablet) 50 mg PO BEDTIME [facility] Last Admin: 04/21/22 20:36 Dose: 50 mg Documented by: Trazodone HCl (Trazodone Hcl 50 Mg Tablet) 50 mg PO BEDTIME PRN PRN Reason: Insomnia Last Admin: 04/17/22 21:03 Dose: 50 mg Documented by: Allergies Allergies Allergy/AdvReac Type Severity Reaction Status Date / Time Seasonal Allergies Allergy Intermediate Unknown Verified 04/17/22 18:22 Assessment & Plan Assessment & Plan (1) Schizophrenia: Status: Acute Code(s): F20.9 - Schizophrenia, unspecified (2) Intellectual disability: Status: Acute Code(s): F79 - Unspecified intellectual disabilities Plan 42 yo female, hx of schizophrenia, intellectual disability, sent in from her residential home due to decompensation since Nov 2021 with hospitalizations which would not make medication changes to NORMAN. Pt today reports no symptoms of concern and reports nothing is wrong. 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 Labs-pt refused this a.m. Collateral contacts Behavioral observation. 04/18: continue treatment plan 04/19: continue treatment plan 04/20 continue treatment plan 04/21/22- Team/family meeting to review current concerns, clarify parameters of Alfonso guardianship as no one can produce a copy of the guardianship and discharge planning. 04/22/22- Continue current plan. Team meeting with residential/OP on 04/24/22 12pm. I spent minutes with the patient and/or on the patient floor today, greater than?50% of which was spent counseling/coordinating care. Patient educated on: therapeutic strategies Informed Consent: understands and further education needed Reason for contiued inpatient stay Substantial Risk for: inability to function and rapid decompensation
[2022-04-22 21:15] VITALS: BP 91/50; PULSE 72; TEMP 36.9; O2SAT 97
[2022-04-22] MEDS: Topiramate 25 MG TABLET 50 MG PO (21:17)
[2022-04-22] MEDS: OLANZapine 7.5 MG TABLET 15 MG PO (21:18)
[2022-04-23] MEDS: Sertraline HCL 100 MG TABLET 200 MG PO (08:28)
[2022-04-23] MEDS: Omeprazole 40 MG CAPSULE.DR PO (08:28)
[2022-04-23] MEDS: Loratadine 10 MG TABLET PO (08:28)
[2022-04-23] MEDS: dilTIAZem HCL 30 MG TABLET PO ×2 (08:28→14:13)
[2022-04-23] MEDS: Famotidine 20 MG TABLET PO ×2 (08:29→21:01)
--- NOTE | 2022-04-23 16:37 | HO.PSYCHPN ---
Subjective Subjective Date of Service: 04/23/22 Reason For Visit: Psychosis Interim History: Patient sitting on bed. Very little eye contact. Patient is guarded. She gives a thumbs up and says that she is good but afterwards she just gives a thumbs up saying that she is sleeping well, eating well, no SI or HI no AVH. Patient says she wants to read her magazine now and does not want to talk further. Mental Status Exam Mental Status Exam Narrative: Patient Appearance:?Appropriate Patient Orientation:?Person, Place, Time and Situation Level of Consciousness:?Alert Patient Behavior:?marginally Cooperative and limited Eye Contact Mood Description:? good Affect Description:?Constricted Patient Cognition Impaired:?No Ability to Follow Directions:?fair Memory Description:?Episodic Impaired Hallucinations:?None Delusions:?Paranoid Ideation Perceptual Disturbances:?Depersonalization and Derealization Thought Process:?Goal Oriented and Evasive Thought Content:?positive for Goal Oriented, positive for Evasive; denies SI/HI Judgement:?Fair Diagnostics Vital Signs (24Hr): Vital Signs - 24 hr 04/22/22 21:15 Temperature 98.5 F Pulse Rate 72 Blood Pressure 91/50 L Pulse Oximetry 97 BMI result Body Mass Index 41.5 Labs Results: 04/16/22 08:27 04/16/22 08:27 Medications Medications Current Medications Acetaminophen (Acetaminophen 325 Mg Tablet) 650 mg PO Q6H PRN PRN Reason: Headache/Pain Mild Scale (1-3) Al Hydroxide/Mg Hydroxide (Magnesium Hydrox/Alum Hydrox 30 Ml Oral.Susp) 30 ml PO Q6H PRN PRN Reason: Heartburn/Nausea Albuterol Sulfate (Albuterol Sulfate 90 Mcg 8 Gm Inhaler) 2 puff INHALE Q4H PRN PRN Reason: Wheezing Diltiazem HCl (Diltiazem Hcl 30 Mg Tablet) 30 mg PO TID [facility]; Protocol Last Admin: 04/23/22 14:13 Dose: 30 mg Documented by: Famotidine (Famotidine 20 Mg Tablet) 20 mg PO BID [facility] Last Admin: 04/23/22 08:29 Dose: 20 mg Documented by: Hydroxyzine HCl (Hydroxyzine Hcl 25 Mg Tablet) 25 mg PO Q6H PRN PRN Reason: Anxiety Loratadine (Loratadine 10 Mg Tablet) 10 mg PO DAILY [facility] Last Admin: 04/23/22 08:28 Dose: 10 mg Documented by: Magnesium Hydroxide (Milk Of Magnesia 30 Ml Oral.Susp) 30 ml PO DAILY PRN PRN Reason: Constipation Olanzapine (Olanzapine 7.5 Mg Tablet) 15 mg PO BEDTIME [facility] Last Admin: 04/22/22 21:18 Dose: 15 mg Documented by: Omeprazole (Omeprazole 40 Mg Capsule.Dr) 40 mg PO DAILY [facility] Last Admin: 04/23/22 08:28 Dose: 40 mg Documented by: Sertraline HCl (Sertraline Hcl 100 Mg Tablet) 200 mg PO DAILY [facility] Last Admin: 04/23/22 08:28 Dose: 200 mg Documented by: Topiramate (Topiramate 25 Mg Tablet) 50 mg PO BEDTIME [facility] Last Admin: 04/22/22 21:17 Dose: 50 mg Documented by: Trazodone HCl (Trazodone Hcl 50 Mg Tablet) 50 mg PO BEDTIME PRN PRN Reason: Insomnia Last Admin: 04/17/22 21:03 Dose: 50 mg Documented by: Allergies Allergies Allergy/AdvReac Type Severity Reaction Status Date / Time Seasonal Allergies Allergy Intermediate Unknown Verified 04/17/22 18:22 Assessment & Plan Assessment & Plan (1) Schizophrenia: Status: Acute Code(s): F20.9 - Schizophrenia, unspecified (2) Intellectual disability: Status: Acute Code(s): F79 - Unspecified intellectual disabilities Plan 42 yo female, hx of schizophrenia, intellectual disability, sent in from her residential home due to decompensation since Nov 2021 with hospitalizations which would not make medication changes to NORMAN. Pt today reports no symptoms of concern and reports nothing is wrong. 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 Labs-pt refused this a.m. Collateral contacts Behavioral observation. 04/18: continue treatment plan 04/19: continue treatment plan 04/20 continue treatment plan 04/21/22- Team/family meeting to review current concerns, clarify parameters of Alfonso guardianship as no one can produce a copy of the guardianship and discharge planning. 04/22/22- Continue current plan. Team meeting with residential/OP on 04/24/22 12pm. 04/23/22 continue current treatment plan I spent minutes with the patient and/or on the patient floor today, greater than?50% of which was spent counseling/coordinating care. Reason for contiued inpatient stay Substantial Risk for: other
[2022-04-23] MEDS: OLANZapine 7.5 MG TABLET 15 MG PO (21:01)
[2022-04-23] MEDS: Topiramate 25 MG TABLET 50 MG PO (21:01)
[2022-04-24 06:00] VITALS: BP 112/71; PULSE 104; RESP 16; TEMP 36.5; O2SAT 98
[2022-04-24] MEDS: Sertraline HCL 100 MG TABLET 200 MG PO (08:19)
[2022-04-24] MEDS: Famotidine 20 MG TABLET PO ×2 (08:19→20:55)
[2022-04-24] MEDS: Loratadine 10 MG TABLET PO (08:19)
[2022-04-24] MEDS: Omeprazole 40 MG CAPSULE.DR PO (08:19)
[2022-04-24] MEDS: dilTIAZem HCL 30 MG TABLET PO ×3 (08:19→20:54)
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
[2022-04-24 18:00] VITALS: BP 110/68; PULSE 100; RESP 18; TEMP 36.6; O2SAT 98
[2022-04-24] MEDS: OLANZapine 7.5 MG TABLET 15 MG PO (20:55)
[2022-04-24] MEDS: Topiramate 25 MG TABLET 50 MG PO (20:55)
[2022-04-25 08:06] VITALS: BP 115/71; PULSE 73; TEMP 36.7; O2SAT 97
[2022-04-25] MEDS: Famotidine 20 MG TABLET PO ×2 (08:53→21:45)
[2022-04-25] MEDS: dilTIAZem HCL 30 MG TABLET PO ×3 (08:53→21:45)
[2022-04-25] MEDS: Sertraline HCL 100 MG TABLET 200 MG PO (08:53)
[2022-04-25] MEDS: Omeprazole 40 MG CAPSULE.DR PO (08:53)
[2022-04-25] MEDS: Loratadine 10 MG TABLET PO (08:53)
--- NOTE | 2022-04-25 16:42 | HO.PSYCHPN ---
Subjective Subjective Date of Service: 04/25/22 Reason For Visit: Psychosis Subjective Notes: Conditional Voluntary Healthcare Proxy: No Guardianship: Yes Medical Problems Affecting Mental Status: No Interim History: I really don't want a shot. Processessing OP team meeting of 04/23 and asking appropriate questions. Visable in milieu, social with the group yet on the periphery. No behavioral dyscontrol. Denies current sx. Medication Compliance: Yes Side effects from medications: No Attending Groups: Yes Review of Systems Acute medical concerns: No Medical Review of Systems: unchanged Mental Status Exam Mental Status Exam Patient Appearance: Appropriate Patient Orientation: Person, Place, Time and Situation Level of Consciousness: Alert Patient Behavior: Talkative, Cooperative and Good Eye Contact Mood Description: Withdrawn Affect Description: Constricted Patient Cognition Impaired: No Ability to Follow Directions: Good Speech Pattern: Spontaneous Speech Memory Description: Episodic Impaired Hallucinations: None Delusions: Paranoid Ideation Perceptual Disturbances: Depersonalization and Derealization Thought Process: Goal Oriented and Evasive Thought Content: positive for Goal Oriented, positive for Evasive and positive for Suicidal Ideation (denies) Depressive Symptoms: Increased Irritability and Thoughts of /Suicide (denies) Judgement: Fair Diagnostics Vital Signs (24Hr): Vital Signs - 24 hr 04/24/22 18:00 04/25/22 08:06 Temperature 98 F 98.0 F Pulse Rate 100 73 Respiratory Rate 18 Blood Pressure 110/68 115/71 Pulse Oximetry 98 97 BMI result Body Mass Index 41.5 Labs Results: 04/16/22 08:27 04/16/22 08:27 Medications Medications Current Medications Acetaminophen (Acetaminophen 325 Mg Tablet) 650 mg PO Q6H PRN PRN Reason: Headache/Pain Mild Scale (1-3) Al Hydroxide/Mg Hydroxide (Magnesium Hydrox/Alum Hydrox 30 Ml Oral.Susp) 30 ml PO Q6H PRN PRN Reason: Heartburn/Nausea Albuterol Sulfate (Albuterol Sulfate 90 Mcg 8 Gm Inhaler) 2 puff INHALE Q4H PRN PRN Reason: Wheezing Diltiazem HCl (Diltiazem Hcl 30 Mg Tablet) 30 mg PO TID [facility]; Protocol Last Admin: 04/25/22 14:35 Dose: 30 mg Documented by: Famotidine (Famotidine 20 Mg Tablet) 20 mg PO BID [facility] Last Admin: 04/25/22 08:53 Dose: 20 mg Documented by: Hydroxyzine HCl (Hydroxyzine Hcl 25 Mg Tablet) 25 mg PO Q6H PRN PRN Reason: Anxiety Loratadine (Loratadine 10 Mg Tablet) 10 mg PO DAILY [facility] Last Admin: 04/25/22 08:53 Dose: 10 mg Documented by: Magnesium Hydroxide (Milk Of Magnesia 30 Ml Oral.Susp) 30 ml PO DAILY PRN PRN Reason: Constipation Olanzapine (Olanzapine 7.5 Mg Tablet) 15 mg PO BEDTIME [facility] Last Admin: 04/24/22 20:55 Dose: 15 mg Documented by: Omeprazole (Omeprazole 40 Mg Capsule.Dr) 40 mg PO DAILY [facility] Last Admin: 04/25/22 08:53 Dose: 40 mg Documented by: Sertraline HCl (Sertraline Hcl 100 Mg Tablet) 200 mg PO DAILY [facility] Last Admin: 04/25/22 08:53 Dose: 200 mg Documented by: Topiramate (Topiramate 25 Mg Tablet) 50 mg PO BEDTIME [facility] Last Admin: 04/24/22 20:55 Dose: 50 mg Documented by: Trazodone HCl (Trazodone Hcl 50 Mg Tablet) 50 mg PO BEDTIME PRN PRN Reason: Insomnia Last Admin: 04/17/22 21:03 Dose: 50 mg Documented by: Allergies Allergies Allergy/AdvReac Type Severity Reaction Status Date / Time Seasonal Allergies Allergy Intermediate Unknown Verified 04/17/22 18:22 Assessment & Plan Assessment & Plan (1) Schizophrenia: Status: Acute Code(s): F20.9 - Schizophrenia, unspecified (2) Intellectual disability: Status: Acute Code(s): F79 - Unspecified intellectual disabilities Plan 42 yo female, hx of schizophrenia, intellectual disability, sent in from her residential home due to decompensation since Nov 2021 with hospitalizations which would not make medication changes to NORMAN. Pt today reports no symptoms of concern and reports nothing is wrong. Plan: Continue current regime as it is reported pt has been purging medications [employer]. Labs-pt refused this a.m. Collateral contacts Behavioral observation. 04/18: continue treatment plan 04/19: continue treatment plan 04/20 continue treatment plan 04/21/22- Team/family meeting to review current concerns, clarify parameters of Alfonso guardianship as no one can produce a copy of the guardianship and discharge planning. 04/22/22- Continue current plan. Team meeting with residential/OP on 04/24/22 12pm. 04/23/22 continue current treatment plan 04/24/22- Discharge planning. At this time pt refuses NORMAN and it is not listed on her [facility]'s order. She is non-suicidal, has no behaviors of concern and is asking to discharge. Residential and D[facility] are looking into adding a NROMAN to her Al[facility]so order. 04/25/22: Continue current plan of care. I spent minutes with the patient and/or on the patient floor today, greater than?50% of which was spent counseling/coordinating care. Patient educated on: other Informed Consent: understands and further education needed Reason for contiued inpatient stay Substantial Risk for: harm to self, harm to others, inability to function and rapid decompensation
[2022-04-25] MEDS: Topiramate 25 MG TABLET 50 MG PO (21:45)
[2022-04-25] MEDS: OLANZapine 7.5 MG TABLET 15 MG PO (21:45)
[2022-04-26] MEDS: Famotidine 20 MG TABLET PO ×2 (09:32→20:25)
[2022-04-26] MEDS: Omeprazole 40 MG CAPSULE.DR PO (09:32)
[2022-04-26] MEDS: dilTIAZem HCL 30 MG TABLET PO ×2 (09:32→20:23)
[2022-04-26] MEDS: Loratadine 10 MG TABLET PO (09:32)
[2022-04-26] MEDS: Sertraline HCL 100 MG TABLET 200 MG PO (09:34)
--- NOTE | 2022-04-26 10:44 | P.PNPSI_ITS ---
Subjective Subjective Date of Service: 04/26/22 Reason For Visit: Psychosis Subjective Notes: Conditional Voluntary Healthcare Proxy: No Guardianship: Yes Medical Problems Affecting Mental Status: No Interim History: Visable in milieu. Denies questions or symptoms of concern. Complimentary of her assigned team- they are very kind to me-that is nice. Continues to verbalize her not wanting injectable NORMAN medications. Medication Compliance: Yes Side effects from medications: No Attending Groups: Yes Review of Systems Acute medical concerns: No Medical Review of Systems: unchanged Mental Status Exam Mental Status Exam Patient Appearance: Appropriate Patient Orientation: Person, Place, Time and Situation Level of Consciousness: Alert Patient Behavior: Talkative, Cooperative and Good Eye Contact Mood Description: Withdrawn Affect Description: Constricted Patient Cognition Impaired: No Ability to Follow Directions: Good Speech Pattern: Spontaneous Speech Memory Description: Episodic Impaired Hallucinations: None Delusions: Paranoid Ideation Perceptual Disturbances: Depersonalization and Derealization Thought Process: Goal Oriented and Evasive Thought Content: positive for Goal Oriented, positive for Evasive and positive for Suicidal Ideation (denies) Depressive Symptoms: Increased Irritability and Thoughts of /Suicide (denies) Judgement: Fair Diagnostics Vital Signs (24Hr): BMI result Body Mass Index 41.5 Labs Results: 04/16/22 08:27 04/16/22 08:27 Medications Medications Current Medications Acetaminophen (Acetaminophen 325 Mg Tablet) 650 mg PO Q6H PRN PRN Reason: Headache/Pain Mild Scale (1-3) Al Hydroxide/Mg Hydroxide (Magnesium Hydrox/Alum Hydrox 30 Ml Oral.Susp) 30 ml PO Q6H PRN PRN Reason: Heartburn/Nausea Albuterol Sulfate (Albuterol Sulfate 90 Mcg 8 Gm Inhaler) 2 puff INHALE Q4H PRN PRN Reason: Wheezing Diltiazem HCl (Diltiazem Hcl 30 Mg Tablet) 30 mg PO TID [facility]; Protocol Last Admin: 04/26/22 09:32 Dose: 30 mg Documented by: Famotidine (Famotidine 20 Mg Tablet) 20 mg PO BID [facility] Last Admin: 04/26/22 09:32 Dose: 20 mg Documented by: Hydroxyzine HCl (Hydroxyzine Hcl 25 Mg Tablet) 25 mg PO Q6H PRN PRN Reason: Anxiety Loratadine (Loratadine 10 Mg Tablet) 10 mg PO DAILY [facility] Last Admin: 04/26/22 09:32 Dose: 10 mg Documented by: Magnesium Hydroxide (Milk Of Magnesia 30 Ml Oral.Susp) 30 ml PO DAILY PRN PRN Reason: Constipation Olanzapine (Olanzapine 7.5 Mg Tablet) 15 mg PO BEDTIME [facility] Last Admin: 04/25/22 21:45 Dose: 15 mg Documented by: Omeprazole (Omeprazole 40 Mg Capsule.Dr) 40 mg PO DAILY [facility] Last Admin: 04/26/22 09:32 Dose: 40 mg Documented by: Sertraline HCl (Sertraline Hcl 100 Mg Tablet) 200 mg PO DAILY [facility] Last Admin: 04/26/22 09:34 Dose: 200 mg Documented by: Topiramate (Topiramate 25 Mg Tablet) 50 mg PO BEDTIME [facility] Last Admin: 04/25/22 21:45 Dose: 50 mg Documented by: Trazodone HCl (Trazodone Hcl 50 Mg Tablet) 50 mg PO BEDTIME PRN PRN Reason: Insomnia Last Admin: 04/17/22 21:03 Dose: 50 mg Documented by: Allergies Allergies Allergy/AdvReac Type Severity Reaction Status Date / Time Seasonal Allergies Allergy Intermediate Unknown Verified 04/17/22 18:22 Assessment & Plan Assessment & Plan (1) Schizophrenia: Status: Acute Code(s): F20.9 - Schizophrenia, unspecified (2) Intellectual disability: Status: Acute Code(s): F79 - Unspecified intellectual disabilities Plan 42 yo female, hx of schizophrenia, intellectual disability, sent in from her residential home due to decompensation since Nov 2021 with hospitalizations which would not make medication changes to NORMAN. Pt today reports no symptoms of concern and reports nothing is wrong. Plan: Continue current regime as it is reported pt has been purging medications [employer]. Labs-pt refused this a.m. Collateral contacts Behavioral observation. 04/18: continue treatment plan 04/19: continue treatment plan 04/20 continue treatment plan 04/21/22- Team/family meeting to review current concerns, clarify parameters of Alfonso guardianship as no one can produce a copy of the guardianship and discharge planning. 04/22/22- Continue current plan. Team meeting with residential/OP on 04/24/22 12pm. 04/23/22 continue current treatment plan 04/24/22- Discharge planning. At this time pt refuses NORMAN and it is not listed on her [facility] order. She is non-suicidal, has no behaviors of concern and is asking to discharge. Residential and [facility] are looking into adding a NORMAN to her Alfonso order. 04/26/22: Continue current plan of care. I spent minutes with the patient and/or on the patient floor today, greater than?50% of which was spent counseling/coordinating care. Patient educated on: medication risk/benefits and therapeutic strategies Informed Consent: further education needed Reason for contiued inpatient stay Substantial Risk for: harm to self, inability to function and rapid decompensation
[2022-04-26 10:51] VITALS: BP 106/63; PULSE 89; RESP 18; TEMP 36.3; O2SAT 99
[2022-04-26] MEDS: OLANZapine 7.5 MG TABLET 15 MG PO (20:26)
[2022-04-26] MEDS: Topiramate 25 MG TABLET 50 MG PO (20:28)
[2022-04-27 08:53] VITALS: BP 122/74; PULSE 110; TEMP 36.6; O2SAT 99
[2022-04-27] MEDS: Sertraline HCL 100 MG TABLET 200 MG PO (09:05)
[2022-04-27] MEDS: dilTIAZem HCL 30 MG TABLET PO ×3 (09:05→21:48)
[2022-04-27] MEDS: Loratadine 10 MG TABLET PO (09:05)
[2022-04-27] MEDS: Famotidine 20 MG TABLET PO ×2 (09:05→21:48)
[2022-04-27] MEDS: Omeprazole 40 MG CAPSULE.DR PO (09:05)
--- NOTE | 2022-04-27 13:17 | P.PNPSI_ITS ---
Subjective Subjective Date of Service: 04/27/22 Reason For Visit: Psychosis Subjective Notes: Conditional Voluntary Healthcare Proxy: No Guardianship: Yes Medical Problems Affecting Mental Status: No Interim History: Pt reports no symptoms of concern. She is interactive within milieu and with peers. Discharge planned for 04/28/22 11am. Medication Compliance: Yes Side effects from medications: No Attending Groups: Yes Review of Systems Acute medical concerns: No Medical Review of Systems: unchanged Review of Systems Psychiatric: Reports no additional psychiatric complaints Mental Status Exam Mental Status Exam Patient Appearance: Appropriate Patient Orientation: Person, Place, Time and Situation Level of Consciousness: Alert Patient Behavior: Guarded, Talkative, Cooperative and Good Eye Contact Mood Description: Withdrawn and Appropriate Affect Description: Appropriate and Constricted Patient Cognition Impaired: No Ability to Follow Directions: Good Speech Pattern: Spontaneous Speech Memory Description: Episodic Impaired Hallucinations: None Thought Process: Goal Oriented Thought Content: positive for Goal Oriented and positive for Suicidal Ideation (denies) Depressive Symptoms: Thoughts of /Suicide (denies) Judgement: Good Diagnostics Vital Signs (24Hr): Vital Signs - 24 hr 04/27/22 08:53 Temperature 97.9 F Pulse Rate 110 H Blood Pressure 122/74 Pulse Oximetry 99 BMI result Body Mass Index 41.5 Labs Results: 04/16/22 08:27 04/16/22 08:27 Medications Medications Current Medications Acetaminophen (Acetaminophen 325 Mg Tablet) 650 mg PO Q6H PRN PRN Reason: Headache/Pain Mild Scale (1-3) Al Hydroxide/Mg Hydroxide (Magnesium Hydrox/Alum Hydrox 30 Ml Oral.Susp) 30 ml PO Q6H PRN PRN Reason: Heartburn/Nausea Albuterol Sulfate (Albuterol Sulfate 90 Mcg 8 Gm Inhaler) 2 puff INHALE Q4H PRN PRN Reason: Wheezing Diltiazem HCl (Diltiazem Hcl 30 Mg Tablet) 30 mg PO TID [facility]; Protocol Last Admin: 04/27/22 09:05 Dose: 30 mg Documented by: Famotidine (Famotidine 20 Mg Tablet) 20 mg PO BID [facility] Last Admin: 04/27/22 09:05 Dose: 20 mg Documented by: Hydroxyzine HCl (Hydroxyzine Hcl 25 Mg Tablet) 25 mg PO Q6H PRN PRN Reason: Anxiety Loratadine (Loratadine 10 Mg Tablet) 10 mg PO DAILY [facility] Last Admin: 04/27/22 09:05 Dose: 10 mg Documented by: Magnesium Hydroxide (Milk Of Magnesia 30 Ml Oral.Susp) 30 ml PO DAILY PRN PRN Reason: Constipation Olanzapine (Olanzapine 7.5 Mg Tablet) 15 mg PO BEDTIME [facility] Last Admin: 04/26/22 20:26 Dose: 15 mg Documented by: Omeprazole (Omeprazole 40 Mg Capsule.Dr) 40 mg PO DAILY [facility] Last Admin: 04/27/22 09:05 Dose: 40 mg Documented by: Sertraline HCl (Sertraline Hcl 100 Mg Tablet) 200 mg PO DAILY [facility] Last Admin: 04/27/22 09:05 Dose: 200 mg Documented by: Topiramate (Topiramate 25 Mg Tablet) 50 mg PO BEDTIME [facility] Last Admin: 04/26/22 20:28 Dose: 50 mg Documented by: Trazodone HCl (Trazodone Hcl 50 Mg Tablet) 50 mg PO BEDTIME PRN PRN Reason: Insomnia Last Admin: 04/17/22 21:03 Dose: 50 mg Documented by: Allergies Allergies Allergy/AdvReac Type Severity Reaction Status Date / Time Seasonal Allergies Allergy Intermediate Unknown Verified 04/17/22 18:22 Assessment & Plan Assessment & Plan (1) Schizophrenia: Status: Acute Code(s): F20.9 - Schizophrenia, unspecified (2) Intellectual disability: Status: Acute Code(s): F79 - Unspecified intellectual disabilities Plan 42 yo female, hx of schizophrenia, intellectual disability, sent in from her residential home due to decompensation since Nov 2021 with hospitalizations which would not make medication changes to NORMAN. Pt today reports no symptoms of concern and reports nothing is wrong. Plan: Continue current regime as it is reported pt has been purging medications [employer]. Labs-pt refused this a.m. Collateral contacts Behavioral observation. 04/18: continue treatment plan 04/19: continue treatment plan 04/20 continue treatment plan 04/21/22- Team/family meeting to review current concerns, clarify parameters of [place] guardianship as no one can produce a copy of the guardianship and discharge planning. 04/22/22- Continue current plan. Team meeting with residential/OP on 04/24/22 12pm. 04/23/22 continue current treatment plan 04/24/22- Discharge planning. At this time pt refuses NORMAN and it is not listed on her [facility] order. She is non-suicidal, has no behaviors of concern and is asking to discharge. Residential and [facility] are looking into adding a NORMAN to her Al[facility]so order. 04/26/22: Continue current plan of care. 04/27/22: Discharge 04/28/22 to return to her long term living situation. I spent minutes with the patient and/or on the patient floor today, greater than?50% of which was spent counseling/coordinating care. Patient educated on: therapeutic strategies Informed Consent: further education needed Reason for contiued inpatient stay Substantial Risk for: stable for discharge
[2022-04-27 21:40] VITALS: BP 99/55; PULSE 79; TEMP 36.7; O2SAT 97
[2022-04-27] MEDS: OLANZapine 7.5 MG TABLET 15 MG PO (21:47)
[2022-04-27] MEDS: Topiramate 25 MG TABLET 50 MG PO (21:48)
[2022-04-28] MEDS: Famotidine 20 MG TABLET PO (08:53)
[2022-04-28] MEDS: Loratadine 10 MG TABLET PO (08:53)
[2022-04-28] MEDS: Omeprazole 40 MG CAPSULE.DR PO (08:54)
[2022-04-28] MEDS: Sertraline HCL 100 MG TABLET 200 MG PO (08:54)
[2022-04-28 12:48] VITALS: BMI 38.3
--- NOTE | 2022-04-28 17:11 | P.DS_ITS ---
DS: Providers Provider Date of Service: 04/28/22 Date of admission: 04/16/22 21:55 Date of discharge: 04/28/22 Primary care physician: Unknown Physician Admitting clinician: Zayra Patricio Attending physician on admission: Milton Waldron Attending physician on discharge: Milton Waldron Discharging clinician: Zayra Patricio DS: Diagnosis Discharge Diagnosis (1) Schizophrenia: Status: Acute (2) Intellectual disability: Status: Acute DS: Medications Discharge Medications Home Medications: Home Medications Medication Instructions Recorded Confirmed diltiazem HCl 30 mg tablet 30 mg PO TID 12/17/21 04/15/22 famotidine 20 mg tablet 1 tab PO BID 12/17/21 04/15/22 loratadine 10 mg tablet 1 tab PO DAILY 12/17/21 04/15/22 olanzapine 15 mg tablet 1 tab PO BEDTIME 12/17/21 04/15/22 omeprazole 40 mg capsule,delayed 1 cap PO DAILY 12/17/21 04/15/22 release topiramate 50 mg tablet 1 tab PO BEDTIME 12/17/21 04/15/22 albuterol sulfate 90 mcg/actuation 2 puff INHALATION Q4H PRN 12/18/21 04/15/22 aerosol inhaler sertraline 100 mg tablet 200 mg PO DAILY 12/18/21 04/15/22 Mental Status Exam Mental Status Exam Patient Appearance: Appropriate Patient Orientation: Person, Place, Time and Situation Level of Consciousness: Alert Patient Behavior: Guarded, Talkative, Cooperative and Good Eye Contact Mood Description: Withdrawn and Appropriate Affect Description: Appropriate and Constricted Patient Cognition Impaired: No Ability to Follow Directions: Good Speech Pattern: Spontaneous Speech Memory Description: Episodic Impaired Hallucinations: None Thought Process: Goal Oriented Thought Content: positive for Goal Oriented and positive for Suicidal Ideation (denies) Depressive Symptoms: Thoughts of /Suicide (denies) Judgement: Good DS: Summary Hospital Course Hospital Course: Admission to adult psychiatry for behavioral symptoms witnessed by residential team. Pt settled into the milieu, without distress or exacerbation of behavioral symptoms. She did attend groups and no behavioral dyscontrol was observed. No medication changes were required. Residential team reported their desire to have Grisela changed to a long acting injectable medication, however, her community [facility] did not contain this choice at this time. Care discussed with Dr. Young who is her assigned out patient provider. Ro will return to her r esidence and team will continue to observe for symptoms of concern. Time spent discussing smoking cessation with patient: 3 to 10 minutes Status at Discharge Functional status at discharge: independent ambulation Overall status at discharge: patient is back to baseline Time Spent with Patient Time attestation: Total time spent providing and/or coordinating discharge services: Time spent: Less than 30 minutes Discharge Plan Discharge Patient Disposition: Home, Self-Care Discharge Diagnosis: Schizophrenia Intellectual Disability Referrals: [facility] [Other] - 1 Week Psychiatrist: Dr. Amanda ([facility]) [Other] - 05/11/22 10:00 am (*In office* ) Discharge Medications: Continued omeprazole 40 mg capsule,delayed release(DR/EC) 1 cap PO DAILY famotidine 20 mg tablet 1 tab PO BID diltiazem HCl 30 mg tablet 30 mg PO TID loratadine 10 mg tablet 1 tab PO DAILY topiramate 50 mg tablet 1 tab PO BEDTIME olanzapine 15 mg tablet 1 tab PO BEDTIME Label Comments: zydis sertraline 100 mg tablet 200 mg PO DAILY albuterol sulfate 90 mcg/actuation HFA aerosol inhaler 2 puff inhalation Q4H PRN (Reason: Wheezing) No Action olanzapine 15 mg tablet,disintegrating 0 mg PO estradiol [Estrace] 0.01 % (0.1 mg/gram) cream See Rx Instructions .Route DAILY 30 Days Qty: 42.5 0RF Rx Instructions: pea sized amount per urethra daily; Discharge Orders: Discharge Order (Routine); Ordered 04/27/22 Ordered By: Zayra Patricio Diet: advance to usual diet Activity on Discharge: As tolerated Stand Alone Forms: Patient Portal Discharge page, Community Support Care Plan Goals: Stabilization of mood Health Concerns: Schizophrenia Intellectual Disability Plan of Treatment: Attend scheduled appointments Take medications as directed Call/Return as needed Crisis Services if needed [phone] Assessment: non suicidal, non psychotic Discharge Date/Time: 04/28/22 14:35
--- NOTE | 2022-04-29 16:51 | P.EN_ITS ---
Event Note Date of Service: 04/29/22 Event Note: Hospital course discussed with Dr. Young on 04/28/22. Message left for Dr. Godwin [phone] on 04/29 to review hospital course as well.
--- NOTE | 2022-04-29 16:51 | PM.EVENT ---
Event Note Date of Service: 04/29/22 Event Note: Hospital course discussed with Dr. Young on 04/28/22. Message left for Dr. Godwin [phone] on 04/29 to review hospital course as well.
== END 2022-04-28 14:35 | disposition home or self-care (01) | DRG 885 ==
LOC: HO.ED 04-16 20:44 → HO.PM5 04-16 22:04
PROVIDERS: Physician Assistant; Admitting Provider Psychiatry & Neurology Psychiatry; Emergency Provider Student in an Organized Health Care Education/Training Program; Visit Provider Clinical Nurse Specialist Psychiatric/Mental Health, Adult
DX: F20.9 Schizophrenia, unspecified (principal); F79 Unspecified intellectual disabilities; Z91.14 Patient's other noncompliance with medication regimen; Z20.822 Contact with and (suspected) exposure to COVID-19; Z79.899 Other long term (current) drug therapy
CPT/HCPCS: 36415; 80053; 85025; 87635; 99285

== ENCOUNTER → 2022-05-11 13:15 | Outpatient (BNVA) | payer MEDICARE, MEDICAID, SELFPAY | PROVIDERS: PCP Internal Medicine | DX: N39.41 Urge incontinence (principal) | CPT/HCPCS: 51798; 99212 ==

== ENCOUNTER → 2022-08-19 10:51 | Outpatient (BNVA) | payer MEDICARE, MEDICAID, SELFPAY | PROVIDERS: PCP Internal Medicine; Visit Provider Advanced Practice Midwife | DX: Z01.411 Encounter for gynecological examination (general) (routine) with abnormal findings (principal); T83.718A Erosion of other implanted mesh to organ or tissue, initial encounter | CPT/HCPCS: 99212 ==

== ENCOUNTER → 2022-09-24 10:32 | Outpatient (BNVA) | payer MEDICARE, MEDICAID, SELFPAY | PROVIDERS: PCP Internal Medicine; Visit Provider Urology | DX: T83.721A Exposure of implanted vaginal mesh into vagina, initial encounter (principal); N32.81 Overactive bladder | CPT/HCPCS: 51701; 51798; 99212 ==

== ENCOUNTER 2022-12-14 11:32 | Outpatient (REF) | payer MEDICARE, MEDICAID, SELFPAY | END 2022-12-14 11:33 | disposition home or self-care (01) | LOC: HO.LAB 11:32 | PROVIDERS: PCP Internal Medicine; Visit Provider Urology | DX: T83.721A Exposure of implanted vaginal mesh into vagina, initial encounter (principal); N32.81 Overactive bladder; R32 Unspecified urinary incontinence | CPT/HCPCS: 51701; 51798; 87086; 99212 ==

== ENCOUNTER 2023-03-03 11:07 | Outpatient (REF) | payer MEDICARE, MEDICAID, SELFPAY ==
[2023-03-03 14:40] LABS: Estimated Average Glucose 108 mg/dL; Hemoglobin A1c % 5.4 %
[2023-03-03 14:41] LABS: Alanine Aminotransferase 10 U/L (0-31); Alkaline Phosphatase 116 U/L (39-117); Anion Gap 12 (12-20); Aspartate Amino Transferase 14 U/L (5-31); Bilirubin Total 0.3 mg/dL (0.0-1.0); Blood Urea Nitrogen 12 mg/dL (9-16); Calcium 8.8 mg/dL (8.4-10.2); Carbon Dioxide 23 mmol/L (22-29); Chloride 107 mmol/L (96-108); Estimated Glomerular Filt Rate > 60; Glucose Random 99 mg/dL (60-115); Potassium 4.3 mmol/L (3.3-5.1); Sodium 138 mmol/L (135-145); Total Protein 7.4 g/dL (6.5-8.0)
== END 2023-03-03 11:08 | disposition home or self-care (01) ==
LOC: HO.10HDL 11:07
PROVIDERS: Visit Provider Internal Medicine
DX: J45.909 Unspecified asthma, uncomplicated (principal); F70 Mild intellectual disabilities; R13.19 Other dysphagia; R73.01 Impaired fasting glucose
CPT/HCPCS: 36415; 80053; 83036

== ENCOUNTER → 2023-03-31 09:56 | Outpatient (BNVA) | payer MEDICARE, MEDICAID, SELFPAY | PROVIDERS: PCP Internal Medicine; Visit Provider Urology | DX: R32 Unspecified urinary incontinence (principal); T83.721A Exposure of implanted vaginal mesh into vagina, initial encounter; Z79.899 Other long term (current) drug therapy | CPT/HCPCS: 99212 ==

== ENCOUNTER 2023-06-10 11:34 | Outpatient (REF) | payer MEDICARE, MEDICAID, SELFPAY ==
[2023-06-10 14:29] LABS: Rheumatoid Factor < 13.0 IU/mL (<15.0)
[2023-06-10 14:36] LABS: Erythrocyte Sedimentation Rate 45 MM/HR (0-20)
[2023-06-16 13:58] LABS: Cyclic Citrullinated Peptide <16 UNITS
[2023-06-16 15:29] LABS: Anti Nuclear Antibody Screen POSITIVE (NEGATIVE); Anti Nuclear Antibody Titer 1:40 titer
== END 2023-06-10 11:35 | disposition home or self-care (01) ==
LOC: HO.10HDL 11:34
PROVIDERS: Visit Provider Internal Medicine
DX: H16.002 Unspecified corneal ulcer, left eye (principal); R13.10 Dysphagia, unspecified; R76.8 Other specified abnormal immunological findings in serum
CPT/HCPCS: 36415; 85652; 86038; 86039; 86200; 86431

== ENCOUNTER 2023-06-16 17:13 | Emergency (ER) | payer MEDICARE, MEDICAID, SELFPAY ==
--- NOTE | ~2023-06-16 | XR_ITS ---
EXAMINATION: XR CHEST CLINICAL INFORMATION: Productive cough. COMPARISON: Chest radiograph 01/13/2022. TECHNIQUE: 2 views of the chest were obtained. FINDINGS: No significant abnormality is noted involving the heart, lungs, mediastinum, bony thorax or soft tissues. XR/XR chest 2V IMPRESSION: Unremarkable examination.
[2023-06-16 17:18] VITALS: BP 147/105; PULSE 115; RESP 22; TEMP 36.7; O2SAT 98; BMI 43.1
--- NOTE | 2023-06-16 17:18 | ED.CHESTPAIN ---
HPI - Chest Pain General Chief Complaint: Chest Pain Stated Complaint: Left chest pain/diff breathing Time Seen by Provider: 06/16/23 22:33 Source: patient and other Mode of arrival: ambulatory History of Present Illness HPI narrative: 43-year-old female from a [facility] senior care who is complaining of chest pain that began yesterday without associated fever, chills but states she is having shortness of breath and has a history of asthma and reports a productive cough. Related Data Home Medications Medication Instructions Recorded Confirmed diltiazem HCl 30 mg tablet 30 mg PO TID 12/17/21 12/14/22 famotidine 20 mg tablet 1 tab PO BID 12/17/21 12/14/22 loratadine 10 mg tablet 1 tab PO DAILY 12/17/21 12/14/22 olanzapine 15 mg tablet 1 tab PO BEDTIME 12/17/21 12/14/22 omeprazole 40 mg capsule,delayed 1 cap PO DAILY 12/17/21 12/14/22 release topiramate 50 mg tablet 1 tab PO BEDTIME 12/17/21 12/14/22 albuterol sulfate 90 mcg/actuation 2 puff inhalation Q4H PRN Wheezing 12/18/21 12/14/22 aerosol inhaler sertraline 100 mg tablet 200 mg PO DAILY 12/18/21 12/14/22 olanzapine 15 mg disintegrating 0 mg PO 05/11/22 12/14/22 tablet acetaminophen 500 mg tablet 0 mg PO 08/19/22 12/14/22 budesonide 180 mcg/actuation 2 inh inhalation BID 08/19/22 12/14/22 breath activated powder inhaler (Pulmicort Flexhaler) clotrimazole 1 % topical cream appl topical 08/19/22 12/14/22 ibuprofen 600 mg tablet 600 mg PO TID 08/19/22 12/14/22 montelukast 10 mg tablet 10 mg PO DAILY 08/19/22 12/14/22 oxybutynin chloride 15 mg 15 mg PO DAILY 08/19/22 12/14/22 tablet,extended release 24 hr triamcinolone acetonide 0.1 % appl topical 08/19/22 12/14/22 topical cream Previous Rx's Medication Instructions Recorded conjugated estrogens 0.625 mg/gram See Rx Instructions vaginal DAILY 05/12/23 vaginal cream (Premarin) complicated uti 90 days #90 grams Allergies Allergy/AdvReac Type Severity Reaction Status Date / Time Seasonal Allergies Allergy Intermediate Unknown Verified 06/16/23 17:22 Review of Systems Review of Systems: Pertinent positives and negatives as stated in HPI [facility] Past Medical History Source: nursing notes reviewed Medical History Conduct disorder Intellectual disability Intellectual disability Schizoaffective disorder Urge incontinence Social History Social History Household Members: Other Housing: Other Housing Other:: senior care Do you presently have visiting nurse or other home services: Yes (senior care staff) Unable to assess alcohol history related to: Refusing to respond Alcohol intake: unknown Patient Tobacco Use Status: Never used Tobacco Advance Directives: No Advance Directives Information Provided: Yes service: No Sexual orientation: Straight/Heterosexual Physical Exam Vital Signs: Vital Signs: Last Vital Signs Temp 97.8 F 06/16/23 23:57 Pulse 80 06/16/23 23:57 Resp 16 06/16/23 23:57 BP 111/71 06/16/23 23:57 Pulse Ox 98 06/16/23 23:57 O2 Del Method Room Air 06/16/23 23:57 BMI result Body Mass Index 43.1 VITAL SIGNS: Reviewed. GENERAL: Well developed, well nourished, in moderate distress. HEAD: Normocephalic/atraumatic EYES: PERRLA, EOMI EARS: Ext canals without abnormality, TMs non-bulging and non-erythematous NOSE: Nares patent bilateral OROPHARYNX: no oral lesions noted, posterior pharynx clear and non-erythematous without noted tonsillar enlargement/erythema/exudates NECK: Supple, no adenopathy LUNGS: Normal breath sounds. No adventitious sounds or accessory muscle use. SpO2<98> CARDIOVASCULAR: Regular rate and rhythm without noted murmurs, no JVD or lower extremity edema. ABDOMEN: Soft, non-tender, non-distended with bowel sounds. MUSCULOSKELETAL: No tenderness, deformities, or effusions noted on gross inspection. EXTREMITIES: No cyanosis, clubbing or edema. SKIN: Inspection of the skin reveals no rashes NEUROLOGIC: Alert and oriented x 4. Strength and sensation to light touch were grossly intact x 4. Course Course Course Narrative: RME - 43 yo female with history of schizophrenia, intellectual disability, asthma who presents to the ER with her [facility] worker for evaluation of left sided chest pain since last night. She also reports SOB and had a hard time sleeping last night. +productive cough, no fevers or known sick contacts Plan: CXR, EKG, labs Medications Administered Discontinued Medications Generic Name Dose Route Start Last Admin Trade Name Salma PRN Reason Stop Dose Admin Lidocaine/Diphenhydr/Alum/Mg/Simeth 10 ml 06/16/23 22:51 06/16/23 23:04 Mag&Al/Sim/Diphenhyd/Lidocaine 10 Ml Oral.Susp PO 06/16/23 22:52 10 ml ONCE ONE Administration Protocol Medical Decision Making Medical Decision Making MDM Narrative: 43-year-old female with history and clinical presentation, DDX: Musculoskeletal, acid reflux/indigestion, Pneumonia, and low clinical suspicion for ACS. Patient was provided with magic mouthwash for suspected acid reflux. I reviewed all investigations and hematologic indices are grossly within normal limits, there is a very mild normocytic anemia that is likely anemia of chronic disease as well as a mild left shift of uncertain significance as patient is afebrile. Chest x-ray without pneumonia and otherwise my interpretation is in agreement with radiology's impression. Chemistry indices grossly within normal limits, mild glucose elevation, undetectable troponin without acute EKG changes. No LOPEZ or electrolyte derangements. Liver enzymes are within normal limits. On re-evaluation after patient received Magic mouthwash she reports that the pain has completely resolved further substantiating the suspicion acid reflux cunningham indigestion as all other differential such as pneumonia or ACS are far less likely. [facility] Differential Diagnosis Differential Diagnoses: The differential diagnosis associated with the presentation includes Please see the discussion above Admission/Observation Consideration of admission/observation: Escalation of care including admission/observation considered Please see the discussion above Lab Data MDM Lab Attestation statement: I reviewed the patient's lab results. Please see the discussion above 06/16/23 17:46 06/16/23 17:46 Labs: Lab Results 06/16/23 06/16/23 06/16/23 Range/Units 17:46 17:46 17:46 WBC 9.8 (4.8-10.8) X10*3/uL RBC 4.03 L (4.20-5.50) X10*6/uL Hgb 11.0 L (12.0-16.0) g/dl Hct 34.7 L (37.0-47.0) % MCV 86.1 (80.0-98.0) fL MCH 27.3 (27.0-33.0) pg MCHC 31.7 (31.0-35.0) g/dl RDW 14.5 (11.0-16.0) % Plt Count 277 (160-400) X10*3/uL MPV 11.3 (9.4-12.3) fL Immature Gran % (Auto) 1.0 H (0.0-0.4) % Neut % (Auto) 73.9 H (45-73) % Lymph % (Auto) 16.3 L (20-40) % [place] % (Auto) 7.3 (2-11) % Eos % (Auto) 1.2 (0-4) % Baso % (Auto) 0.3 (0-2) % Lymph # (Auto) 1.6 (1.2-4.9) X10*3/uL [place] # (Auto) 0.7 (0.1-1.2) X10*3/uL Eos # (Auto) 0.1 (0.0-0.4) X10*3/uL Baso # (Auto) 0.0 (0.0-0.2) X10*3/uL Abs Immat Gran (auto) 0.10 H (0.00-0.03) X10*3/uL Absolute Neuts (auto) 7.2 (2.0-8.3) x10*3/uL Absolute Nucleated RBC 0.000 (0.0-0.012) X10*3/uL Nucleated RBC % (auto) 0.0 (0.0-0.2) /100WBC Sodium 140 (135-145) mmol/L Potassium 4.0 (3.3-5.1) mmol/L Chloride 112 H (96-108) mmol/L Carbon Dioxide 19 L (22-29) mmol/L Anion Gap 13 (12-20) BUN 17 H (9-16) mg/dL Creatinine 0.87 (0.5-1.4) mg/dL Estim Creat Clear Calc 87.7 Estimated GFR > 60 Random Glucose 117 H (60-115) mg/dL Calcium 9.0 (8.4-10.2) mg/dL Magnesium 2.0 (1.6-2.6) mg/dL Total Bilirubin 0.1 (0.0-1.0) mg/dL Direct Bilirubin < 0.2 (0.0-0.5) mg/dL AST 12 (5-31) U/L ALT 8 (0-31) U/L Alkaline Phosphatase 100 (39-117) U/L Troponin I High Sens < 2.7 (<3.5-17.0) ng/L Total Protein 7.5 (6.5-8.0) g/dL Albumin 3.6 (3.5-5.0) g/dL Independent Interpretation I performed an independent interpretation of an: EKG Interpretation: Sinus tachycardia, HR-103, no STEMI, nonspecific T-wave abnormality, DE/QRS/QTC is within normal limits. Radiology Impression Radiologist Impression: No pneumonia, otherwise my interpretation is in agreement with radiology's impression External Record Review External record reviewed: Outpatient record and Prior outpatient labs Chronic Conditions Patient?s care impacted by: Hypertension Discharge Plan Discharge Clinical Impression: Atypical chest pain, Acid reflux Patient Disposition: Home, Self-Care Instructions: Diet for Stomach Ulcers and Gastritis (ED), Indigestion (ED) Additional Instructions: 1. Resume all home medications as prescribed. 2. Follow-up with primary care provider next 1-2 days. Return to the ER for any worsening symptoms. Prescriptions: No Action Premarin 0.625 mg/gram cream See Rx Instructions vaginal DAILY 90 Days Qty: 90 1RF Rx Instructions: pea sized amount per urethra daily; vaginally daily; omeprazole 40 mg capsule,delayed release(DR/EC) 1 cap PO DAILY famotidine 20 mg tablet 1 tab PO BID diltiazem HCl 30 mg tablet 30 mg PO TID loratadine 10 mg tablet 1 tab PO DAILY topiramate 50 mg tablet 1 tab PO BEDTIME olanzapine 15 mg tablet 1 tab PO BEDTIME Patient Comments: zydis sertraline 100 mg tablet 200 mg PO DAILY albuterol sulfate 90 mcg/actuation HFA aerosol inhaler 2 puff inhalation Q4H PRN (Reason: Wheezing) oxybutynin chloride 15 mg tablet extended release 24hr 15 mg PO DAILY montelukast 10 mg tablet 10 mg PO DAILY clotrimazole 1 % cream topical ibuprofen 600 mg tablet 600 mg PO TID Pulmicort Flexhaler 180 mcg/actuation aerosol powdr breath activated 2 inh inhalation BID triamcinolone acetonide 0.1 % cream topical acetaminophen 500 mg tablet 0 mg PO olanzapine 15 mg tablet,disintegrating 0 mg PO Referrals: Vy Dyer MD [Primary Care Provider] - Print Language: Zimbabwean
--- NOTE | 2023-06-16 17:19 | ECG_ITS ---
Test Reason : CHEST PAIN Blood Pressure : / mmHG Vent. Rate : 103 BPM Atrial Rate : 103 BPM P-R Int : 166 ms QRS Dur : 080 ms QT Int : 332 ms P-R-T Axes : 039 024 005 degrees QTc Int : 434 ms Sinus tachycardia Nonspecific T wave abnormality Abnormal ECG When compared with ECG of 29-DEC-2012 09:31, No significant change was found Referred By: Gloria Grant Electronically Signed By:JULIEN GARCIA MD
[2023-06-16 17:52] LABS: MANUAL DIFF FLAG NO
[2023-06-16 18:18] LABS: Troponin-I High Sensitivity < 2.7 ng/L (<3.5-17.0)
[2023-06-16 18:28] LABS: Basophils Percent Auto 0.3 % (0-2); Eosinophils Absolute Auto 0.1 X10*3/uL (0.0-0.4); Eosinophils Percent Auto 1.2 % (0-4); Hematocrit 34.7 % (37.0-47.0); Lymphocytes Absolute Auto 1.6 X10*3/uL (1.2-4.9); Lymphocytes Percent Auto 16.3 % (20-40); Mean Corpuscular HGB Conc 31.7 g/dl (31.0-35.0); Mean Corpuscular Hemoglobin 27.3 pg (27.0-33.0); Mean Corpuscular Volume 86.1 fL (80.0-98.0); Mean Platelet Volume 11.3 fL (9.4-12.3); Monocytes Absolute Auto 0.7 X10*3/uL (0.1-1.2); Monocytes Percent Auto 7.3 % (2-11); Neutrophils Absolute Auto 7.2 x10*3/uL (2.0-8.3); Neutrophils Percent Auto 73.9 % (45-73); Platelet Count 277 X10*3/uL (160-400); Red Blood Count 4.03 X10*6/uL (4.20-5.50); Red Cell Distribution Width 14.5 % (11.0-16.0); White Blood Count 9.8 X10*3/uL (4.8-10.8)
[2023-06-16 18:31] LABS: Alanine Aminotransferase 8 U/L (0-31); Albumin Level 3.6 g/dL (3.5-5.0); Alkaline Phosphatase 100 U/L (39-117); Anion Gap 13 (12-20); Aspartate Amino Transferase 12 U/L (5-31); Bilirubin Direct < 0.2 mg/dL (0.0-0.5); Bilirubin Total 0.1 mg/dL (0.0-1.0); Blood Urea Nitrogen 17 mg/dL (9-16); Carbon Dioxide 19 mmol/L (22-29); Chloride 112 mmol/L (96-108); Creatinine Clr Calc Pharmacy 87.7; Estimated Glomerular Filt Rate > 60; Glucose Random 117 mg/dL (60-115); Sodium 140 mmol/L (135-145); Total Protein 7.5 g/dL (6.5-8.0)
[2023-06-16 22:17] VITALS: BP 143/112; PULSE 92; RESP 20; TEMP 36.7; O2SAT 98
--- NOTE | 2023-06-16 22:18 | MHC.EDTECH ---
THIS PCT JUST ASSUMED CARE OF PATIENT ,VITAlS SIGN TAKEN ,PATIENT WAS HOOKED UP TO BEATER TENDER ,PT BP IS HIGH , PATIENT SAID SHE IS IN 10 -10 PAIN ,RN OSCAR AWARE .
[2023-06-16] MEDS: Mag&Al/Sim/Diphenhyd/Lidocaine 10 ML ORAL.SUSP PO (23:04)
[2023-06-16 23:32] VITALS: BP 111/71; PULSE 75; RESP 15; O2SAT 95
[2023-06-16 23:57] VITALS: BP 111/71; PULSE 80; RESP 16; TEMP 36.6; O2SAT 98
== END 2023-06-17 00:55 | disposition home or self-care (01) ==
PROVIDERS: Physician Assistant; Emergency Provider Student in an Organized Health Care Education/Training Program; PCP Internal Medicine
DX: R07.89 Other chest pain (principal); K21.9 Gastro-esophageal reflux disease without esophagitis; Z79.899 Other long term (current) drug therapy
CPT/HCPCS: 36415; 71046; 80048; 80076; 83735; 84484; 85025; 93005; 99283; 99285

== ENCOUNTER → 2023-06-16 17:19 | Outpatient (BNV) | payer MEDICARE, MEDICAID, SELFPAY | PROVIDERS: Emergency Provider Student in an Organized Health Care Education/Training Program; PCP Internal Medicine; Visit Provider Internal Medicine Cardiovascular Disease | DX: R07.9 Chest pain, unspecified (principal) | CPT/HCPCS: 93010 ==

== ENCOUNTER 2023-09-24 13:57 | Outpatient (AMB) | payer MEDICARE, MEDICAID, SELFPAY ==
--- NOTE | 2023-09-24 14:02 | MHC.OFFVIS ---
Intake Intake Visit Reasons: 4m follow up Intake Note: Patient presents today for a follow-up on Urinary Incontinence: Meds- Premarin & Oxybutynin Allergies to Antibiotic- No Known Allergies Blood Thinner- None Unable to void, PVR- 117 mL Patient Symptoms: None Accompanied by: Self / Same As Patient Allergies Seasonal Allergies Allergy (Intermediate, Verified 09/24/23 14:04) Unknown HPI HPI Comments History of Present Illness Details Ro is a 43-year-old female who presents today to the office for a follow-up. Ro is here for follow up. She resides in a [facility]. She is on oxybutynin for OAB symptoms. She is status post transvaginal sling by Dr Dominguez. On pelvic exam she was noted to have exposure of mesh vaginally. She has been prescribed oxybutynin 15 mg daily and is using the estrogen vaginal cream. she denies vaginal pain. She denies dysuria. She was last seen on 03/31/23 for UDS, findings sensory urgency, detrusor overactivity not observed Stress urinary incontinence not observed. Plan is to continue oxybutynin and premarin cream 09/24/2023: Evaluation today?UA? Blood: negative, leukocytes:negative. Bladder scan PVR: 170 mL. 09/24/2023: Plan: Continue Premarin. Continue oxybutynin 15 mg QD. [facility] Medical History Conduct disorder Intellectual disability Intellectual disability Schizoaffective disorder Urge incontinence Family History (Updated 09/24/23 @ 14:04 by DONOVAN Moreira) Father No problems noted. Mother No family history of cancer Social History Household Members: Other Housing: Other Housing Other:: [facility] Do you presently have visiting nurse or other home services: Yes ([facility] staff) Unable to assess alcohol history related to: Refusing to respond Alcohol intake: unknown Patient Tobacco Use Status: Never used Tobacco service: No Sexual orientation: Straight/Heterosexual Review of Systems Const All systems reviewed & are unremarkable except as noted in HPI and below Reports no additional complaints Eyes Reports no additional complaints ENT Reports no additional complaints Card Denies dyspnea Resp Denies cough and Denies dyspnea GI Reports no additional complaints Reports no additional complaints Musc Reports no additional complaints Skin/Breast Denies rash and Denies unusual bruising Neuro Reports no additional complaints Psych Reports no additional complaints Endo Reports no additional complaints Sonido/Lymph Reports no additional complaints Aller/Immun Reports no additional complaints Office Procedures Post Void Residual Post Residual Void Post Void Residual (PVR): [id number] Void Residual by ultrasound Results AMB Urinalysis, Automated UA Leukoctes 0 Kassidy/uL Last Edit by Michael Bolden Nicki on 09/24/23 14:46 UA Nitrite Negative Last Edit by Michael Bolden [facility] on 09/24/23 14:46 UA Urobilinogen 0.2 mg/dL Last Edit by Michael Bolden [facility] on 09/24/23 14:46 UA Protein 0 mg/dL Last Edit by Michael Bolden [facility] on 09/24/23 14:46 UA pH 6.5 Last Edit by Michael Bolden [facility] on 09/24/23 14:46 UA Blood 0 Aramis/uL Last Edit by Michael Bolden [facility] on 09/24/23 14:46 UA Specific [place] 1.015 Last Edit by Michael Bolden [facility] on 09/24/23 14:46 UA Ketone Negative Last Edit by Michael Bolden [facility] on 09/24/23 14:46 UA Bilirubin 0 mg/dL Last Edit by Michael Bolden [facility] on 09/24/23 14:46 UA Glucose 0 mg/dL Last Edit by Michael Bolden [facility] on 09/24/23 14:46 Results Reviewed Results Reviewed: Laboratory Last Values Urine pH (Auto) 6.5 09/24/23 14:44 Specific [place] (Auto) 1.015 09/24/23 14:44 Urine Protein (Auto) 0 mg/dL 09/24/23 14:44 Glucose (UA)(Auto) 0 mg/dL 09/24/23 14:44 Urine Ketones (Auto) Negative 09/24/23 14:44 Urine Blood (Auto) 0 Aramis/uL 09/24/23 14:44 Urine Nitrite (Auto) Negative 09/24/23 14:44 Urine Bilirubin (Auto) 0 mg/dL 09/24/23 14:44 Urine Urobilinogen (Auto) 0.2 mg/dL 09/24/23 14:44 Leukocyte Esterase (Auto) 0 Kassidy/uL 09/24/23 14:44 Assessment & Plan Assessment & Plan (1) Exposure of implanted vaginal mesh: Code(s): T83.721A - Exposure of implanted vaginal mesh into vagina, initial encounter (2) Urinary incontinence: Code(s): R32 - Unspecified urinary incontinence Plan Continue oxybutynin and premarin cream as prescribed. Orders: Orders AMB Urinalysis Automated 09/24/23 Z13.9 - Encounter for screening, unspecified AMB Post Void Residual by ultrasound 09/24/23 N39.8 - Other specified disorders of urinary system Patient Instructions: The patient had an opportunity to ask questions regarding treatment plan. All questions were answered. Imaging, Laboratory studies and physical exam results were discussed and reviewed in detail. No major barriers to understanding were identified. The patient expressed understanding and agreement with the above treatment plan. The patient is aware they should contact our office by phone for worsening of their current condition or the appearance of new symptoms. Compliance is encouraged with any medications and followup testing that is ordered. It is a privilege to be allowed the opportunity to participate in the urologic care of your patient. If you have any questions or concerns regarding treatment for the above conditions please do not hesitate to contact me. The office telephone contact is [phone]. This note is constructed in part using voice recognition software. While every effort has been made to ensure accuracy radiator specialist errors may have been included. Yours sincerely, Radha Nelson MD Coding Level of Care Code Est Pt Level 3 (01851) Diagnoses Exposure of implanted vaginal mesh T83.721A Urinary incontinence R32 CPT Codes Post Residual Void - PVR CPT Code: 46796-Rdhw Void Residual by ultrasound ([id number])
== END 2023-09-24 14:26 | disposition home or self-care (01) ==
LOC: HO.HUSH 13:58
PROVIDERS: PCP Internal Medicine; Visit Provider Urology
DX: T83.721A Exposure of implanted vaginal mesh into vagina, initial encounter (principal); R32 Unspecified urinary incontinence
CPT/HCPCS: 99213

== ENCOUNTER → 2023-09-24 13:57 | Outpatient (BNVA) | payer MEDICARE, MEDICAID, SELFPAY | PROVIDERS: PCP Internal Medicine; Visit Provider Urology | DX: T83.7 Complications due to implanted mesh and other prosthetic materials (principal); R32 Unspecified urinary incontinence | CPT/HCPCS: 51798; 81003; 99212 ==

== ENCOUNTER 2023-10-20 08:57 | Outpatient (AMB) | payer MEDICARE, MEDICAID, SELFPAY ==
--- NOTE | 2023-10-20 08:59 | MHC.OFFVIS ---
Intake Vital Signs 10/20/23 09:00 Height 5 ft Weight 215 lb BMI 42.0 BP 100/70 Intake Visit Reasons: Annual Puerto Rican speaking Intake Note: Cotton Picker Marleen Flower Stripper Required: Yes Flower Stripper Language: Planting Supervisor Name: Chely Information Interpreted: non-clinical & clinical Agricultural Produce Sorter: Agricultural Produce Sorter Present (Chely) Accompanied by: Other Relationship Allergies Seasonal Allergies Allergy (Intermediate, Verified 10/20/23 09:00) Unknown Is last menstrual period known: Yes Last menstrual period: 10/15/23 HPI HPI Comments History of Present Illness Details She is a premenopausal woman presenting for annual examination. Marleen, her senior care staff member is present today. Doing well with no concerns. She tries to eat healthy and stays active with exercise. Regular monthly menses that last approximately 4d. She denies vaginal itching and irritation. Denies any bladder symptoms including: urinary frequency, burning discomfort, or abdominal pain. STI screening offered; she accepts. Mammogram up-to-date completed at [facility], no records on hand today. Denies family history of breast, ovarian or colon cancer. Last pap smear 03/2019, was negative. [facility] Medical History (Updated 10/20/23 @ 09:48 by Conchita De La Cruz CNM) Exposure of vaginal mesh through vaginal wall Urge incontinence Intellectual disability Intellectual disability Schizoaffective disorder Conduct disorder Family History Father No problems noted. Mother No family history of cancer Social History Household Members: Other Housing: Other Housing Other:: senior care Do you presently have visiting nurse or other home services: Yes (senior care staff) Unable to assess alcohol history related to: Refusing to respond Alcohol intake: unknown Patient Tobacco Use Status: Never used Tobacco service: No Sexual orientation: Straight/Heterosexual Female Reproductive History Menstrual Date of last menstrual period: 10/15/23 Total pregnancies: 0 Date of last pap smear: 04/19/19 (neg pap and hpv) Date of Mammogram: 08/12/23 (at [facility]) Review of Systems Const All systems reviewed & are unremarkable except as noted in HPI and below Reports as per HPI Eyes Reports no additional complaints ENT Reports no additional complaints Card Reports no additional complaints Resp Reports no additional complaints GI Reports as per HPI and Reports no additional complaints Reports as per HPI Musc Reports no additional complaints Skin/Breast Reports as per HPI Neuro Reports no additional complaints Psych Reports no additional complaints Endo Reports no additional complaints Sonido/Lymph Reports no additional complaints Aller/Immun Reports no additional complaints Physical Exam Vital Signs: Last Vital Signs BP 100/70 10/20/23 09:00 BMI result Body Mass Index 42.0 Const General: cooperative, healthy appearing, no acute distress, well developed and alert Orientation/consciousness: patient oriented x3 HEENT Head: Yes normal to inspection Eyes General: appearance normal, both eyes and all related structures Neck Neck: Yes normal visual inspection Thyroid: Thyroid normal Chest Chest palpation & inspection: normal inspection of the chest and other (no puckering, dimpling, peau de orange, retraction, discharge, masses) Breast/axilla inspection: normal inspection of the breasts Breast/axilla palpation: normal palpation of the breasts Resp Effort & Inspection: normal respiratory effort GI Inspection: Yes normal to inspection Palpation (GI): Soft to palpation Rectal Exam - Female: deferred General: Yes bladder normal to palpation External Female Exam: normal external appearance and normal appearance of the urethra Speculum Exam - Vagina: normal appearance of the vagina, normal palpation, normal vaginal discharge and other (exposed blue mesh anteriorly) Speculum Exam - Cervix: normal appearance of the cervix and normal palpation Bimanual exam- vagina & uterus: normal bimanual exam, normal palpation, uterine size normal, bladder normal to palpation, normal palpation and non-tender Bimanual Exam- Adnexa, other: no masses Skin General skin exam: no rashes or lesions noted Rashes: no rashes Neuro General: patient oriented x3 Cognition (Neuro): normal cognition Extrem General: Yes normal to inspection Psych Attitude: cooperative Thought process: Normal thought process present Assessment & Plan Assessment & Plan (1) Encounter for well woman exam with routine gynecological exam: Code(s): Z01.419 - Encounter for gynecological examination (general) (routine) without abnormal findings Plan: Discussed: Current recommendations for pap smears per ASCCP guidelines. Breast awareness and periodic breast exams. Maintain a healthy lifestyle including a well balanced diet and routine exercise. Use condoms for STI and prevention. Discussed referral to [facility] Urogynecology Department, patient accepts referral (Mesh Exposure). Counseled to count to report any urinary symptoms for immediate evaluation. All of her questions and concerns were addressed to the best of my ability. RTO in one year for annual dust collector ore crushing examination. (2) Exposure of vaginal mesh through vaginal wall: Code(s): T83.721A - Exposure of implanted vaginal mesh into vagina, initial encounter Qualifiers: Encounter type: initial encounter Qualified Code(s): T83.721A - Exposure of implanted vaginal mesh into vagina, initial encounter Orders: Orders CT NG by PCR Today T83.721A - Exposure of implanted vaginal mesh into vagina, initial encounter, Z20.2 - Contact with and (suspected) exposure to infections with a predominantly sexual mode of transmission Hepatitis C Antibody Today Z20.2 - Contact with and (suspected) exposure to infections with a predominantly sexual mode of transmission HIV Ab/Ag Today Z20.2 - Contact with and (suspected) exposure to infections with a predominantly sexual mode of transmission Bacterial Vaginosis Panel Today T83.721A - Exposure of implanted vaginal mesh into vagina, initial encounter, Z20.2 - Contact with and (suspected) exposure to infections with a predominantly sexual mode of transmission Hepatitis B Core Antibody Today Z20.2 - Contact with and (suspected) exposure to infections with a predominantly sexual mode of transmission Syphilis Screen Today Z20.2 - Contact with and (suspected) exposure to infections with a predominantly sexual mode of transmission Referrals Urogynecology Referral T83.721A - Exposure of implanted vaginal mesh into vagina, initial encounter Coding Level of Care Code Est Pt Prev Care 40-64y(16703) Diagnoses Encounter for well woman exam with routine gynecological exam Z01.419 Exposure of vaginal mesh through vaginal wall, initial encounter T83.721A Encounter type: initial encounter
[2023-10-20 09:00] VITALS: BP 100/70; BMI 42.0
== END 2023-10-20 09:46 | disposition home or self-care (01) ==
PROVIDERS: PCP Internal Medicine; Visit Provider Advanced Practice Midwife
DX: T83.721A Exposure of implanted vaginal mesh into vagina, initial encounter (principal)
CPT/HCPCS: 99213

== ENCOUNTER 2023-10-20 08:57 | Outpatient (REF) | payer MEDICARE, MEDICAID, SELFPAY | END 2023-10-20 08:58 | disposition home or self-care (01) | LOC: HO.LNP 08:57 | PROVIDERS: PCP Internal Medicine; Visit Provider Advanced Practice Midwife | DX: Z01.419 Encounter for gynecological examination (general) (routine) without abnormal findings (principal); Z20.2 Contact with and (suspected) exposure to infections with a predominantly sexual mode of transmission | CPT/HCPCS: 0353U; 87480; 87510; 87660; 99212 ==

== ENCOUNTER 2023-10-20 09:32 | Outpatient (REF) | payer MEDICARE, MEDICAID, SELFPAY ==
[2023-10-20 18:28] LABS: CT PCR NOT DETECTED (Not Detect.); NG PCR NOT DETECTED (Not Detect.)
[2023-10-21 15:06] LABS: BV Int Neg Control Negative (Negative); BV Int Pos Control Positive (Positive)
== END 2023-10-20 09:33 | disposition home or self-care (01) ==
LOC: HO.LAB 09:32
PROVIDERS: Visit Provider Advanced Practice Midwife
DX: Z13.89 Encounter for screening for other disorder (principal)
CPT/HCPCS: 0353U; 87480; 87510; 87660

== ENCOUNTER 2024-03-27 11:28 | Outpatient (AMB) | payer MEDICARE, MEDICAID, SELFPAY ==
--- NOTE | 2024-03-27 11:44 | MHC.OFFVIS ---
Intake Visit Reasons: 6m follow up Intake Note: Patient is Present for PVR/ Urology Med: Premarin, Oxybutynin Antibiotic Allergy:None Blood Thinner:None Last PVR: 117 Todays PVR: 0 Allergies Seasonal Allergies Allergy (Intermediate, Verified 03/27/24 11:45) Unknown Medication List - Last Reconciled 03/27/24 by Radha Nelson MD acetaminophen 0 mg PO albuterol sulfate 90 mcg/actuation 2 puffs inhalation Q4H PRN budesonide 180 mcg/actuation (Pulmicort Flexhaler) 2 inhalations inhalation BID clotrimazole 1% appl topical conjugated estrogens (Premarin) pea sized amount per urethra daily; vaginally daily; 90 days diltiazem HCl 30 mg PO TID famotidine 1 tab PO BID fluticasone furoate-vilanterol 100-25 mcg/dose (Breo Ellipta) 1 ea inhalation DAILY ibuprofen 600 mg PO TID ipratropium bromide intranasal loratadine 1 tab PO DAILY montelukast 10 mg PO DAILY olanzapine 1 tab PO BEDTIME olanzapine 0 mg PO omeprazole 1 cap PO DAILY oxybutynin chloride ER 15 mg PO DAILY sertraline 200 mg PO DAILY topiramate 1 tab PO BEDTIME triamcinolone acetonide 0.1% appl topical HPI Comments Details: Ro is a 43-year-old female who presents today to the office for a follow-up. She resides in a alf. She is accompanied by an Aide. She states she is doing well. She is prescribed Premarin vaginal cream for exposed vaginal mesh. She is compliant with medication. She states that the oxybutynin is working well for her bladder control. Denies dysuria or gross hematuria. Has not had significant issues with urinary incontinence. Review of chart: 09/24/2023--Ro is here for follow up. She resides in a alf. She is on oxybutynin for OAB symptoms. She is status post transvaginal sling by Dr Dominguez. On pelvic exam she was noted to have exposure of mesh vaginally. She has been prescribed oxybutynin 15 mg daily and is using the estrogen vaginal cream. she denies vaginal pain. She denies dysuria. She was last seen on 03/31/23 for UDS, findings sensory urgency, detrusor overactivity not observed Stress urinary incontinence not observed. Plan is to continue oxybutynin and premarin cream UA? Blood: negative, leukocytes:negative. Bladder scan PVR: 170 mL. Continue Premarin. Continue oxybutynin 15 mg QD. 03/27/2024: Plan: Exposed vaginal mesh, asymptomatic, continue Premarin cream, overactive bladder continue oxybutynin 15 mg daily. 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 Mother No family history of cancer Social History Household Members: Other Housing: Other Housing Other:: alf Do you presently have visiting nurse or other home services: Yes (alf staff) Unable to assess alcohol history related to: Refusing to respond Alcohol intake: unknown Patient Tobacco Use Status: Never used Tobacco service: No Sexual orientation: Straight/Heterosexual Review of Systems Const All systems reviewed & are unremarkable except as noted in HPI and below Reports no additional complaints Eyes Reports no additional complaints ENT Reports no additional complaints Card Reports no additional complaints Resp Reports no additional complaints GI Reports no additional complaints Reports as per HPI Musc Reports no additional complaints Skin/Breast Reports system reviewed and no additional complaints, except as documented Neuro Reports no additional complaints Psych Reports no additional complaints Endo Reports no additional complaints Sonido/Lymph Reports no additional complaints Aller/Immun Reports no additional complaints Office Procedures Post Void Residual Post Residual Void Post Void Residual (PVR): 0 [id number] Void Residual by ultrasound Results AMB Urinalysis, Automated UA Leukoctes 15 Kassidy/uL Last Edit by DONOVAN Olsen on 03/27/24 11:47 UA Nitrite Negative Last Edit by DONOVAN Olsen on 03/27/24 11:47 UA Urobilinogen 0.2 mg/dL Last Edit by DONOVAN Olsen on 03/27/24 11:47 UA Protein 0 mg/dL Last Edit by DONOVAN Olsen on 03/27/24 11:47 UA pH 6.0 Last Edit by DONOVAN Olsen on 03/27/24 11:47 UA Blood 0 Aramis/uL Last Edit by DONOVAN Olsen on 03/27/24 11:47 UA Specific [place] 1.015 Last Edit by Krys Anderson RMA on 03/27/24 11:47 UA Ketone Negative Last Edit by Krys Anderson A on 03/27/24 11:47 UA Bilirubin 0 mg/dL Last Edit by Krys Anedrson A on 03/27/24 11:47 UA Glucose 0 mg/dL Last Edit by Krys Anderson A on 03/27/24 11:47 Results Reviewed Results Reviewed: Laboratory Last Values Urine pH (Auto) 6.0 03/27/24 11:46 Specific [place] (Auto) 1.015 03/27/24 11:46 Urine Protein (Auto) 0 mg/dL 03/27/24 11:46 Glucose (UA)(Auto) 0 mg/dL 03/27/24 11:46 Urine Ketones (Auto) Negative 03/27/24 11:46 Urine Blood (Auto) 0 Aramis/uL 03/27/24 11:46 Urine Nitrite (Auto) Negative 03/27/24 11:46 Urine Bilirubin (Auto) 0 mg/dL 03/27/24 11:46 Urine Urobilinogen (Auto) 0.2 mg/dL 03/27/24 11:46 Leukocyte Esterase (Auto) 15 Kassidy/uL 03/27/24 11:46 Assessment & Plan Assessment & Plan (1) Exposure of implanted vaginal mesh: Code(s): T83.721A - Exposure of implanted vaginal mesh into vagina, initial encounter Category: Medical (2) Urinary incontinence: Code(s): R32 - Unspecified urinary incontinence Category: Medical Plan Continue oxybutynin and premarin cream as prescribed. Follow-up in 6 months. Orders: Orders AMB Urinalysis Automated Today R32 - Unspecified urinary incontinence, Z13.9 - Encounter for screening, unspecified AMB Post Void Residual by ultrasound Today R32 - Unspecified urinary incontinence Medications: New oxybutynin chloride ER 15 mg PO DAILY 90 tabs 3RF Refilled conjugated estrogens (Premarin) pea sized amount per urethra daily; vaginally daily; 90 grams 1RF complicated uti 90 days Patient Instructions: The patient had an opportunity to ask questions regarding treatment plan. The patient expressed understanding and agreement with the above treatment plan. The patient is aware they should contact our office by phone for worsening of their current condition or the appearance of new symptoms. Compliance is encouraged with any medications and followup testing that is ordered. It is a privilege to be allowed the opportunity to participate in the urologic care of your patient. If you have any questions or concerns regarding treatment for the above conditions please do not hesitate to contact me. The office telephone contact is [phone]. This note is constructed in part using voice recognition software. While every effort has been made to ensure accuracy construction project administrator errors may have been included. Yours sincerely, Radha Nelson MD Coding Level of Care Code Est Pt Level 4 (06933) Diagnoses Exposure of implanted vaginal mesh T83.721A Urinary incontinence R32 CPT Codes Post Residual Void - PVR CPT Code: 89396-Axcw Void Residual by ultrasound ([id number])
== END 2024-03-27 12:10 | disposition home or self-care (01) ==
LOC: HO.HUSH 11:28
PROVIDERS: PCP Internal Medicine; Visit Provider Urology
DX: Z13.9 Encounter for screening, unspecified (principal); R32 Unspecified urinary incontinence; T83.721A Exposure of implanted vaginal mesh into vagina, initial encounter
CPT/HCPCS: 99214

== ENCOUNTER → 2024-03-27 11:28 | Outpatient (BNVA) | payer MEDICARE, MEDICAID, SELFPAY | PROVIDERS: PCP Internal Medicine; Visit Provider Urology | DX: T83.7 Complications due to implanted mesh and other prosthetic materials (principal); R32 Unspecified urinary incontinence | CPT/HCPCS: 51798; 81003; 99212 ==

== ENCOUNTER 2024-09-28 11:44 | Outpatient (AMB) | payer MEDICARE, MEDICAID, SELFPAY ==
--- NOTE | 2024-09-27 19:04 | MHC.OFFVIS ---
Intake Visit Reasons: 6m follow up/PVR Intake Note: Patient is present for 6M F/U PVR Urology Medication:OXYBUTYNIN,PREMARIN Antibiotic Allergy:NONE Blood Thinner:NONE TODAY'S PVR: 0ML'S Commercial Sales Manager Required: No Allergies Seasonal Allergies Allergy (Intermediate, Verified 09/28/24 11:50) Unknown Medication List - Last Reconciled 09/28/24 by Radha Nelson MD acetaminophen 0 mg PO albuterol sulfate 90 mcg/actuation 2 puffs inhalation Q4H PRN budesonide 180 mcg/actuation (Pulmicort Flexhaler) 2 inhalations inhalation BID clotrimazole 1% appl topical conjugated estrogens (Premarin) pea sized amount per urethra daily; vaginally daily; 90 days diltiazem HCl 30 mg PO TID famotidine 1 tab PO BID fluticasone furoate-vilanterol 100-25 mcg/dose (Breo Ellipta) 1 ea inhalation DAILY ibuprofen 600 mg PO TID ipratropium bromide intranasal loratadine 1 tab PO DAILY montelukast 10 mg PO DAILY olanzapine 1 tab PO BEDTIME olanzapine 0 mg PO omeprazole 1 cap PO DAILY oxybutynin chloride ER 15 mg PO DAILY sertraline 200 mg PO DAILY topiramate 1 tab PO BEDTIME triamcinolone acetonide 0.1% appl topical HPI Comments Details: 09/28/24--6 month FU.Ro is here for follow up. She resides in a senior living. She is on oxybutynin for OAB symptoms. She is status post transvaginal sling by Dr Dominguez. On pelvic exam she was noted to have exposure of mesh vaginally. She has been prescribed oxybutynin 15 mg daily and is using the estrogen vaginal cream. She states she has been doing well denies urinary leakage. Review of chart: 03/27/24--Ro is a 43-year-old female who presents today to the office for a follow-up. She resides in a senior living. She is accompanied by an Aide. She states she is doing well. She is prescribed Premarin vaginal cream for exposed vaginal mesh. She is compliant with medication. She states that the oxybutynin is working well for her bladder control. Denies dysuria or gross hematuria. Has not had significant issues with urinary incontinence. 09/24/2023--Ro is here for follow up. She resides in a senior living. She is on oxybutynin for OAB symptoms. She is status post transvaginal sling by Dr Dominguez. On pelvic exam she was noted to have exposure of mesh vaginally. She has been prescribed oxybutynin 15 mg daily and is using the estrogen vaginal cream. she denies vaginal pain. She denies dysuria. She was last seen on 03/31/23 for UDS, findings sensory urgency, detrusor overactivity not observed Stress urinary incontinence not observed. Plan is to continue oxybutynin and premarin cream UA? Blood: negative, leukocytes:negative. Bladder scan PVR: 170 mL. Continue Premarin. Continue oxybutynin 15 mg QD. [facility] Medical History Exposure of vaginal mesh through vaginal wall Urge incontinence Intellectual disability Intellectual disability Schizoaffective disorder Conduct disorder Family History Father No problems noted. Mother No family history of cancer Social History Household Members: Other Housing: Other Housing Other:: senior living Do you presently have visiting nurse or other home services: Yes (senior living staff) Unable to assess alcohol history related to: Refusing to respond Alcohol intake: unknown Patient Tobacco Use Status: Never used Tobacco service: No Sexual orientation: Straight/Heterosexual Review of Systems Const All systems reviewed & are unremarkable except as noted in HPI and below Reports no additional complaints Eyes Reports no additional complaints ENT Reports no additional complaints Card Reports no additional complaints Resp Reports no additional complaints GI Reports no additional complaints Reports as per HPI Musc Reports no additional complaints Skin/Breast Reports system reviewed and no additional complaints, except as documented Neuro Reports no additional complaints Psych Reports no additional complaints Endo Reports no additional complaints Sonido/Lymph Reports no additional complaints Aller/Immun Reports no additional complaints Office Procedures Post Void Residual Post Residual Void Post Void Residual (PVR): 0 [id number] Void Residual by ultrasound Results AMB Urinalysis, Automated UA Leukoctes 15 Kassidy/uL Last Edit by EMELI Rao on 09/28/24 12:57 UA Nitrite Negative Last Edit by EMELI Rao on 09/28/24 12:57 UA Urobilinogen 0.2 mg/dL Last Edit by EMELI Rao on 09/28/24 12:57 UA Protein 15 mg/dL Last Edit by EMELI Rao on 09/28/24 12:57 UA pH 6.0 Last Edit by EMELI Rao on 09/28/24 12:57 UA Blood 0 Aramis/uL Last Edit by Alfreda Velázquez CCM on 09/28/24 12:57 UA Specific [place] 1.015 Last Edit by EMELI Rao on 09/28/24 12:57 UA Ketone Negative Last Edit by EMELI Rao on 09/28/24 12:57 UA Bilirubin 0 mg/dL Last Edit by EMELI Rao on 09/28/24 12:57 UA Glucose 0 mg/dL Last Edit by EMELI Rao on 09/28/24 12:57 Results Reviewed Results Reviewed: Laboratory Last Values Urine pH (Auto) 6.0 09/28/24 12:56 Specific [place] (Auto) 1.015 09/28/24 12:56 Urine Protein (Auto) 15 mg/dL 09/28/24 12:56 Glucose (UA)(Auto) 0 mg/dL 09/28/24 12:56 Urine Ketones (Auto) Negative 09/28/24 12:56 Urine Blood (Auto) 0 Aramis/uL 09/28/24 12:56 Urine Nitrite (Auto) Negative 09/28/24 12:56 Urine Bilirubin (Auto) 0 mg/dL 09/28/24 12:56 Urine Urobilinogen (Auto) 0.2 mg/dL 09/28/24 12:56 Leukocyte Esterase (Auto) 15 Kassidy/uL 09/28/24 12:56 Assessment & Plan Assessment & Plan (1) OAB (overactive bladder): Code(s): N32.81 - Overactive bladder Category: Medical (2) Exposure of vaginal mesh through vaginal wall: Code(s): T83.721A - Exposure of implanted vaginal mesh into vagina, initial encounter Category: Medical Qualifiers: Encounter type: initial encounter Qualified Code(s): T83.721A - Exposure of implanted vaginal mesh into vagina, initial encounter Plan Continue oxybutynin and premarin cream as prescribed. Orders: Orders AMB Urinalysis Automated 09/28/24 Z13.9 - Encounter for screening, unspecified Medications: Refilled oxybutynin chloride ER 15 mg PO DAILY 90 tabs 3RF conjugated estrogens (Premarin) pea sized amount per urethra daily; vaginally daily; 90 grams 1RF complicated uti 90 days Patient Instructions: The patient had an opportunity to ask questions regarding treatment plan. The patient expressed understanding and agreement with the above treatment plan. The patient is aware they should contact our office by phone for worsening of their current condition or the appearance of new symptoms. Compliance is encouraged with any medications and followup testing that is ordered. It is a privilege to be allowed the opportunity to participate in the urologic care of your patient. If you have any questions or concerns regarding treatment for the above conditions please do not hesitate to contact me. The office telephone contact is [phone]. This note is constructed in part using voice recognition software. While every effort has been made to ensure accuracy orthopaedic technologist errors may have been included. Yours sincerely, Radha Nelson MD Coding Level of Care Code Est Pt Level 4 (09691) Diagnoses OAB (overactive bladder) N32.81 Exposure of vaginal mesh through vaginal wall, initial encounter T83.721A Encounter type: initial encounter CPT Codes Post Residual Void - PVR CPT Code: 54019-Tzqp Void Residual by ultrasound ([id number])
== END 2024-09-28 12:39 | disposition home or self-care (01) ==
LOC: HO.HUSH 11:44
PROVIDERS: PCP Internal Medicine; Visit Provider Urology
DX: N32.81 Overactive bladder (principal); T83.721A Exposure of implanted vaginal mesh into vagina, initial encounter
CPT/HCPCS: 99214

== ENCOUNTER → 2024-09-28 11:44 | Outpatient (BNVA) | payer MEDICARE, MEDICAID, SELFPAY | PROVIDERS: PCP Internal Medicine; Visit Provider Urology | DX: N32.81 Overactive bladder (principal); T83.721A Exposure of implanted vaginal mesh into vagina, initial encounter; Z79.899 Other long term (current) drug therapy | CPT/HCPCS: 51798; 81003; 99212 ==

== ENCOUNTER 2024-10-25 10:07 | Outpatient (REF) | payer MEDICARE, MEDICAID, SELFPAY ==
[2024-10-26 09:52] LABS: HPV 16,18/45 See PAP report
[2024-10-26 09:56] LABS: HPV 16,18/45 See PAP report
== END 2024-10-25 10:08 | disposition home or self-care (01) ==
LOC: HO.LNP 10:07
PROVIDERS: PCP Internal Medicine; Visit Provider Advanced Practice Midwife
DX: Z01.419 Encounter for gynecological examination (general) (routine) without abnormal findings (principal)
CPT/HCPCS: 87624; 88175; G0101; Q0091

== ENCOUNTER 2024-10-25 10:24 | Outpatient (AMB) | payer MEDICARE, MEDICAID, SELFPAY ==
--- NOTE | 2024-10-25 10:22 | A.OFFVIS_ITS ---
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 Accompanied by band splitter from [facility], Corine. Doing well with no concerns. Regular monthly menses. Currently is not sexually active. She denies vaginal itching and irritation. STI screening offered; she declines. She tries to eat healthy and stays active with exercise-walks regularly. Denies family history of breast, ovarian or colon cancer. Last pap smear 2018, negative. Mammogram: not up to date. [facility] Medical History Exposure of vaginal mesh through vaginal wall Urge incontinence Intellectual disability Intellectual disability Schizoaffective disorder Conduct disorder Family History (Updated 10/25/24 @ 12:18 by Conchita De La Cruz CNM) Father No problems noted. Mother No family history of cancer Maternal Aunt Breast carcinoma Social History Household Members: Other Housing: Other Housing Other:: [facility] Do you presently have visiting nurse or other home services: Yes ([facility] staff) Unable to assess alcohol history related to: Refusing to respond Alcohol intake: unknown Patient Tobacco Use Status: Never used Tobacco service: No Sexual orientation: Straight/Heterosexual Female Reproductive History Menstrual Date of last menstrual period: 10/17/24 Total pregnancies: 0 Date of last pap smear: 04/19/19 (neg pap and hpv) Review of Systems Const All systems reviewed & are unremarkable except as noted in HPI and below Reports as per HPI Eyes Reports no additional complaints ENT Reports no additional complaints Card Reports no additional complaints Resp Reports no additional complaints GI Reports as per HPI and Reports no additional complaints Reports as per HPI Musc Reports no additional complaints Skin/Breast Reports as per HPI Neuro Reports no additional complaints Psych Reports no additional complaints Endo Reports no additional complaints Sonido/Lymph Reports no additional complaints Aller/Immun Reports no additional complaints Physical Exam Vital Signs: Last Vital Signs BP 100/64 12/04/24 10:23 BMI result Body Mass Index 45.5 Const General: cooperative, healthy appearing, no acute distress, well developed and alert Orientation/consciousness: patient oriented x3 HEENT Head: Yes normal to inspection Eyes General: appearance normal, both eyes and all related structures Neck Neck: Yes normal visual inspection Thyroid: Thyroid normal Chest Chest palpation & inspection: normal inspection of the chest and other (no puckering, dimpling, peau de orange, retraction, discharge, masses) Breast/axilla inspection: normal inspection of the breasts Breast/axilla palpation: normal palpation of the breasts Resp Effort & Inspection: normal respiratory effort GI Inspection: Yes normal to inspection Palpation (GI): Soft to palpation Rectal Exam - Female: deferred General: Yes bladder normal to palpation External Female Exam: normal external appearance and normal appearance of the urethra Speculum Exam - Vagina: normal appearance of the vagina, normal palpation, normal vaginal discharge and other (Exposed sling mesh-anteriorly) Speculum Exam - Cervix: normal appearance of the cervix and normal palpation Bimanual exam- vagina & uterus: normal bimanual exam, normal palpation, uterine size normal, bladder normal to palpation, normal palpation and non-tender Bimanual Exam- Adnexa, other: no masses Skin General skin exam: no rashes or lesions noted Rashes: no rashes Neuro General: patient oriented x3 Cognition (Neuro): normal cognition Extrem General: Yes normal to inspection Psych Attitude: cooperative Thought process: Normal thought process present Assessment & Plan Assessment & Plan (1) Encounter for well woman exam with routine gynecological exam: Code(s): Z01.419 - Encounter for gynecological examination (general) (routine) without abnormal findings Category: Medical Plan Discussed: Current recommendations for pap smears per ASCCP guidelines. Pap obtained. Breast awareness and periodic breast exams. Mammogram yearly. Maintain a healthy lifestyle including a well balanced diet and routine exercise. Use condoms for STI and prevention. Colonoscopy >45, or at risk sooner. Patient verbalizes understanding and agrees to the plan of care. She was given opportunity to ask questions and all questions were answered to the best of my ability. RTO in one year for annual extrusion machine operator examination. This note is constructed using voice recognition software. While every effort has been made to ensure accuracy, accounting manager errors may have been included. Orders: Orders Pap Smear Today Z01.419 - Encounter for gynecological examination (general) (routine) without abnormal findings MM tomosynthesis screening BI Today Z12.31 - Encounter for screening mammogram for malignant neoplasm of breast HPV High risk Today Z01.419 - Encounter for gynecological examination (general) (routine) without abnormal findings Coding Level of Care Code Est Pt Prev Care 40-64y(63308) Diagnoses Encounter for well woman exam with routine gynecological exam Z01.419
[2024-10-25 10:23] VITALS: BP 100/64; BMI 45.5
== END 2024-10-25 11:05 | disposition home or self-care (01) ==
PROVIDERS: PCP Internal Medicine; Visit Provider Advanced Practice Midwife
DX: Z01.419 Encounter for gynecological examination (general) (routine) without abnormal findings (principal)
CPT/HCPCS: G0101; Q0091

== ENCOUNTER 2025-02-20 14:01 | Outpatient (REF) | payer MEDICARE, MEDICAID, SELFPAY ==
[2025-02-20 15:50] LABS: Hematocrit 35.3 % (37.0-47.0); Hemoglobin 11.1 g/dl (12.0-16.0); Mean Corpuscular HGB Conc 31.4 g/dl (31.0-35.0); Mean Corpuscular Volume 85.9 fL (80.0-98.0); Mean Platelet Volume 10.8 fL (9.4-12.3); Platelet Count 296 X10*3/uL (160-400); Red Blood Count 4.11 X10*6/uL (4.20-5.50); Red Cell Distribution Width 14.2 % (11.0-16.0); White Blood Count 7.9 X10*3/uL (4.8-10.8)
[2025-02-20 17:43] LABS: Thyroid Stimulating Hormone 2.68 uIU/mL (0.32-4.0)
== END 2025-02-20 14:02 | disposition home or self-care (01) ==
LOC: HO.LAB 14:01
PROVIDERS: PCP Internal Medicine; Visit Provider Advanced Practice Midwife
DX: R87.619 Unspecified abnormal cytological findings in specimens from cervix uteri (principal); N92.1 Excessive and frequent menstruation with irregular cycle; N93.9 Abnormal uterine and vaginal bleeding, unspecified
CPT/HCPCS: 36415; 58100; 81025; 84443; 85027; 88305

== ENCOUNTER 2025-02-20 14:01 | Outpatient (AMB) | payer MEDICARE, MEDICAID, SELFPAY ==
--- NOTE | 2025-02-20 14:18 | MHC.OFFVIS ---
Vital Signs 02/20/25 14:24 Height 5 ft BP 118/76 Intake Visit Reasons: EMB Intake Note: Account Receivable Clerk Cece Radiographer Angiogram: Radiographer Angiogram Present (Mariana) Allergies Seasonal Allergies Allergy (Intermediate, Verified 02/20/25 14:18) Unknown Is last menstrual period known: Yes HPI Comments Details: Patient is here today for an endometrial biopsy results due to history of Pap smear with endometrial cells reported. She is accompanied by her lace weaver, Cece. She admits to having heavy bleeding at least for 4 days, unable to report out a menstrual history, currently not tracking it. [facility] Medical History (Updated 02/20/25 @ 14:51 by Conchita De La Cruz CNM) Abnormal uterine bleeding (AUB) Non-atypical endometrial cells on cervical Pap smear Exposure of vaginal mesh through vaginal wall Urge incontinence Intellectual disability Intellectual disability Schizoaffective disorder Conduct disorder Family History (Updated 10/25/24 @ 12:18 by Conchita De La Cruz CNM) Father No problems noted. Mother No family history of cancer Maternal Aunt Breast carcinoma Social History (Reviewed 10/25/24 @ 10:29 by Edith Hodgson [facility]) Household Members: Other Housing: Other Housing Other:: assisted Do you presently have visiting nurse or other home services: Yes (assisted staff) Unable to assess alcohol history related to: Refusing to respond Alcohol intake: unknown Patient Tobacco Use Status: Never used Tobacco service: No Sexual orientation: Straight/Heterosexual Review of Systems Const All systems reviewed & are unremarkable except as noted in HPI and below Physical Exam Vital Signs: Last Vital Signs BP 118/76 02/20/25 14:24 Const General: cooperative, healthy appearing and no acute distress Orientation/consciousness: patient oriented x3 GI Inspection: Yes normal to inspection Palpation (GI): Soft to palpation and Other GI palpation findings present (Nontender) Rectal Exam - Female: visual inspection normal General: Yes bladder normal to palpation External Female Exam: normal appearance of the urethra Speculum Exam - Vagina: normal appearance of the vagina, normal palpation, normal vaginal discharge and other (Exposed vaginal mesh anteriorly) Speculum Exam - Cervix: normal appearance of the cervix and normal palpation Bimanual exam- vagina & uterus: normal bimanual exam, normal palpation, uterine size normal, bladder normal to palpation, normal palpation, uterine shape normal and non-tender Bimanual Exam- Adnexa, other: normal adnexae Neuro General: patient oriented x3 Office Procedures Endometrial Biopsy Details: The patient is here today for an endometrial biopsy due to endometrial cells on Pap smear, AUB to rule out any pathology including atypical, hyperplasia or cancer cells of the uterus. She was counseled regarding anticipatory guidance for the procedure including the risks for pain, infection, bleeding, perforation, potential injury to the tissues may include the cervix, uterus, tubes, bladder and bowels. These injuries may include further treatment and evaluation including surgery, blood transfusions, antibiotics, hospitalizations and anesthesia. Permanent injury and scarring can occur. She was consented for the procedure, and the consent forms were signed. She is agreeable to have the procedure today. All questions were answered. Endometrial Biopsy Procedure: The patient was placed in the dorsal lithotomy position and a sterile speculum inserted. Using aseptic technique for the procedure. The cervix was cleansed with Betadine x 3 swabs. A single toothed tenaculum was placed on the cervix for stabilization and the uterus was sounded to 8 cm with a 4mm pipelle, and tissue sample obtained. Minimal bleeding was observed. The tissue sample was placed in formalin in a patient labeled container by staff assisting and sent to the pathology department for processing and interpretation. The patient tolerate the procedure well and was in good condition when leaving the department. Endometrial Biopsy Post Procedure Care: Nothing in the vagina including: tampons, douching or intimacy until all the bleeding has subsided. There may be some post procedure bleeding for several days, this bleeding is usually light and may turn to a light brown or pink color. Mild cramps may occurs. Nothing in the vaginal including: tampons, douching, or intimacy until all the bleeding has subsided. You may take an over the counter mild analgesic such as Tylenol or Advil (if no allergies) per the manufactures recommendation on dosing, frequency, and follow the directions completely. Call the office if any: fever (over 100.4), flu like symptoms, abdominal pain (worse than cramping), foul smelling, infected appearing vaginal discharge, or heavy bleeding. If indicated: Use condoms to prevent and STI's, and only after the bleeding has stopped completely. Return to the office in 2 weeks for results and plan of care. This note is constructed using voice recognition software. While every effort has been made to ensure accuracy, medical transcription radiology errors may have been included. [id number] Biopsy Results AMB Test Urine AMB Test Urine Negative Last Edit by DONOVAN Sher on 02/20/25 14:27 Results Reviewed Results Reviewed: Laboratory Last Values Tst Clinic Negative 02/20/25 14:27 Name: Ro Guerrero Age/Sex: 44/F Attending: Conchita De La Cruz CNM : 1980 Submitted by: Conchita De La Cruz CNM Copies to: Vy Dyer MD MR #: [id number] Status: DEP REF Collected: 10/25/24 Location: [facility] Received: 10/26/24 Interpretation Satisfactory for evaluation. Negative for intraepithelial lesion or malignancy. Endometrial cells present age 45 and over. Comment: Endometrial cells after age 45, particularly out of phase or after menopause, may be associated with benign endometrium, hormonal alterations or, less commonly, endometrial/uterine abnormalities. Please correlate with clinical findings. HPV High Risk: Negative HPV Genotyping 16: Negative HPV Genotyping 18: Negative Clinical Information LMP: 10/16/2024 Previous PAP test: 2019, WNL Material Received ThinPrep-Cervical Copies To Vy Dyer MD [facility] [address] [place] [address] Conchita De La Cruz CNM [facility] Women's Services [address] [place] [address] Electronically Signed By: Van Escobar MD 10/31/24 0744 As of September 13, 2024, the technical services to include automated prescreening performed by the ThinPrep Imaging System, PAP screening and HPV testing will be performed at [facility] (CLIA #[id number]), [address] [facility], Patient: Ro Guerrero Age/Sex: 44/F MR#: [id number] Page 1 of 2 Assessment & Plan Assessment & Plan (1) Abnormal uterine bleeding (AUB): Code(s): N93.9 - Abnormal uterine and vaginal bleeding, unspecified Category: Medical Plan: EMB procedure completed today. CBC and TSH ordered, pelvic ultrasound ordered, plan follow up EMB/ ultrasound results. Advised to start documenting her cycles and reporting days that are heavy. Monitor menstrual cycles, report any unscheduled bleeding, bleeding episodes <24 days apart or heavy/prolonged menstrual bleeding. Call the office for a follow up for any concerns. The patient expressed understanding and agreement with the plan of care. All of her questions and concerns were addressed to the best of my ability. This note is constructed using voice recognition software. While every effort has been made to ensure accuracy, medical transcription radiology errors may have been included. (2) Exposure of vaginal mesh through vaginal wall: Code(s): T83.721A - Exposure of implanted vaginal mesh into vagina, initial encounter Category: Medical Qualifiers: Encounter type: initial encounter Qualified Code(s): T83.721A - Exposure of implanted vaginal mesh into vagina, initial encounter Plan: Follow up with Dr. Gauthier. (3) Non-atypical endometrial cells on cervical Pap smear: Code(s): R87.618 - Other abnormal cytological findings on specimens from cervix uteri Category: Medical Plan Emb procedure completed. See procedure notes. Orders: Orders Surgical Today R87.619 - Unspecified abnormal cytological findings in specimens from cervix uteri AMB HCG Urine Test Today Z32.02 - Encounter for test, result negative Thyroid Stimulating Hormone Today N92.1 - Excessive and frequent menstruation with irregular cycle, N93.9 - Abnormal uterine and vaginal bleeding, unspecified Complete Blood Count no Diff Today N93.9 - Abnormal uterine and vaginal bleeding, unspecified US pelvic and transvaginal Today N93.9 - Abnormal uterine and vaginal bleeding, unspecified Coding Level of Care Code Procedure Only Diagnoses Abnormal uterine bleeding (AUB) N93.9 Exposure of vaginal mesh through vaginal wall, initial encounter T83.721A Encounter type: initial encounter Non-atypical endometrial cells on cervical Pap smear R87.618 CPT Codes Endometrial Biopsy - CPT: 77169-Iuivtsqfkzx Biopsy ([id number])
[2025-02-20 14:24] VITALS: BP 118/76
== END 2025-02-20 15:05 | disposition home or self-care (01) ==
LOC: HO.HWS 14:02
PROVIDERS: PCP Internal Medicine; Visit Provider Advanced Practice Midwife
DX: N93.9 Abnormal uterine and vaginal bleeding, unspecified (principal); T83.721A Exposure of implanted vaginal mesh into vagina, initial encounter; R87.618 Other abnormal cytological findings on specimens from cervix uteri; Z32.02 Encounter for pregnancy test, result negative
CPT/HCPCS: 58100

== ENCOUNTER 2025-03-13 15:02 | Outpatient (REF) | payer MEDICARE, MEDICAID, SELFPAY ==
--- NOTE | ~2025-03-13 | US_ITS ---
EXAMINATION: US PELVIS CLINICAL INFORMATION: Abnormal bleeding. COMPARISON: March 14, 2018. TECHNIQUE: Ultrasound of the pelvis is performed using both transabdominal and transvaginal transducers along with Doppler. Transvaginal imaging is performed due to inadequate visualization transabdominally. FINDINGS: Uterus: The uterus is anteverted and measures 8 x 4 x 6 cm. Volume: 97 cc. There is a 1 cm anechoic lesion in the right side of the myometrium. The double wall endometrial thickness is 10 mm. The uterus is smooth in contour and has normal myometrial echogenicity. Adnexa: Both ovaries are visualized. There is normal color flow to the adnexa. There is no ovarian torsion. There is no pelvic ascites or fluid collection. Right ovary measures 4 x 2 x 2 cm. Volume: 19 cc. There is a 2 cm anechoic lesion without septations. Left ovary measures 1 x 1 x 1 cm. Volume: 1 cc. There is a 1.4 cm anechoic lesion US/US pelvic and transvaginal IMPRESSION: 1 cm thickened endometrial stripe. 1 cm cystic lesion, myometrium. Probable dominant follicles. No ovarian torsion. Electronically signed by: Igor Powell MD 03/14/2025 01:46 PM EDT
== END 2025-03-13 15:03 | disposition home or self-care (01) ==
LOC: HO.HMGCX 15:02
PROVIDERS: PCP Internal Medicine; Visit Provider Advanced Practice Midwife
DX: N93.9 Abnormal uterine and vaginal bleeding, unspecified (principal)
CPT/HCPCS: 76830; 76856

== ENCOUNTER → 2025-03-13 15:12 | Outpatient (BNV) | payer MEDICARE, MEDICAID, SELFPAY | PROVIDERS: PCP Internal Medicine; Visit Provider Radiology Diagnostic Radiology | DX: N83.291 Other ovarian cyst, right side (principal); N83.292 Other ovarian cyst, left side | CPT/HCPCS: 76830; 76856 ==

== ENCOUNTER 2025-03-29 12:45 | Outpatient (AMB) | payer MEDICARE, MEDICAID, SELFPAY ==
--- NOTE | 2025-03-29 12:50 | A.OFFVIS_ITS ---
Intake Visit Reasons: U/S & EMB Follow up Nurse Midwife/Clinical Instructor: Nurse Midwife/Clinical Instructor Present Accompanied by: Other Relationship Allergies Seasonal Allergies Allergy (Intermediate, Verified 03/29/25 12:50) Unknown Is last menstrual period known: Yes Last menstrual period: 03/22/25 HPI Comments Details: Patient is here today for her test results accompanied by her snf care provider, Corine. She reports monthly menses currently not tracking them, lasting a proximally a week. Has cramping with her cycle but not enough discomfort to take any Tylenol. Menstrual history is unclear she is not keeping track nor telling staff when she is menstruating. She has not sexually active, she speaks to a potential boyfriend on the phone. [facility] Medical History (Updated 03/29/25 @ 13:21 by Conchita De La Cruz CNM) Encounter for test, result negative Abnormal uterine bleeding (AUB) Non-atypical endometrial cells on cervical Pap smear Exposure of vaginal mesh through vaginal wall Urge incontinence Intellectual disability Intellectual disability Schizoaffective disorder Conduct disorder Family History (Updated 10/25/24 @ 12:18 by Conchita De La Cruz CNM) Father No problems noted. Mother No family history of cancer Maternal Aunt Breast carcinoma Social History (Reviewed 10/25/24 @ 10:29 by Edith Hodgson [facility]) Household Members: Other Housing: Other Housing Other:: snf Do you presently have visiting nurse or other home services: Yes (snf staff) Unable to assess alcohol history related to: Refusing to respond Alcohol intake: unknown Patient Tobacco Use Status: Never used Tobacco service: No Sexual orientation: Straight/Heterosexual Female Reproductive History Menstrual Date of last menstrual period: 03/22/25 Review of Systems Const All systems reviewed & are unremarkable except as noted in HPI and below Endo Reports no additional complaints Physical Exam Const General: cooperative, healthy appearing and no acute distress Psych Appearance: well kempt Attitude: cooperative Thought process: Normal thought process present Results Reviewed Results Reviewed: [facility] Adult Primary [facility] [place] [address] Ultrasound Report Signed Patient: Ro Guerrero MR#: [id number] : 1980 Acct:[id number] Age/Sex: 44 / F ADM Date: 03/13/25 Loc: [facility] Attending Dr: Conchita De La Cruz CNM Ordering Physician: Conchita De La Cruz CNM Date of Service: 03/13/25 Procedure(s): US pelvic and transvaginal Accession Number(s): [id number] cc: Vy Dyer MD; Conchita De La Cruz CNM~ EXAMINATION: US PELVIS CLINICAL INFORMATION: Abnormal bleeding. COMPARISON: March 14, 2018. TECHNIQUE: Ultrasound of the pelvis is performed using both transabdominal and transvaginal transducers along with Doppler. Transvaginal imaging is performed due to inadequate visualization transabdominally. FINDINGS: Uterus: The uterus is anteverted and measures 8 x 4 x 6 cm. Volume: 97 cc. There is a 1 cm anechoic lesion in the right side of the myometrium. The double wall endometrial thickness is 10 mm. The uterus is smooth in contour and has normal myometrial echogenicity. Adnexa: Both ovaries are visualized. There is normal color flow to the adnexa. There is no ovarian torsion. There is no pelvic ascites or fluid collection. Right ovary measures 4 x 2 x 2 cm. Volume: 19 cc. There is a 2 cm anechoic lesion without septations. Left ovary measures 1 x 1 x 1 cm. Volume: 1 cc. There is a 1.4 cm anechoic lesion US/US pelvic and transvaginal IMPRESSION: 1 cm thickened endometrial stripe. 1 cm cystic lesion, myometrium. Probable dominant follicles. No ovarian torsion. Electronically signed by: Igor Powell MD 03/14/2025 01:46 PM EDT Dictated By: Igor Kramer MD Signed By: <Electronically signed by Igor Valenzuela MD in OV> 03/14/25 1346 DD/ 1519 TD/TT: 03/13/25 1536 Painter And Grader Cork: MR #: [id number] Status: DEP REF Collected: 02/20/25 Location: [facility] Received: 02/21/25 Diagnosis Endometrium, biopsy: Benign proliferative endometrium, and benign endocervical glandular and squamous epithelium; no atypia or carcinoma. Clinical History Endometrial cells on PAP Microscopic Description Microscopic sections reviewed. Material Received Endometrial biopsy Gross Description Received in formalin labeled ?EMB is a 1.8 x 1.5 x 0.5 cm aggregate of predominantly mucus and blood and irregular fragments of congested and hemorrhagic reagan-brown tissue, submitted in toto in a cassette labeled A. CEDS Copies To Vy Dyer MD [facility] [address] [place] [address] Conchita De La Cruz CNM [facility] [address] [place] [address] NOTE: Unless otherwise stated, all tissue is formalin-fixed and paraffin- embedded. Some or all of the immunohistochemical tests reported herein may have been developed and their performance characteristics determined by [facility]. They have not been cleared or approved by the U.S. Food and Drug Administration (FDA). However, the FDA has determined that such clearance or approval is not necessary. This laboratory is certified under the Clinical Laboratory Improvement Amendments of 1988 (CLIA) as qualified to perform high complexity clinical laboratory testing. Patient: Ro Guerrero Age/Sex: 44/F MR#: [id number] Page 1 of 2 Name: Ro Guerrero Age/Sex: 44/F Attending: Conchita De La Cruz CNM : 1980 Submitted by: Conchita De La Cruz CNM Copies to: Vy Dyer MD MR #: [id number] Status: DEP REF Collected: 10/25/24 Location: [facility] Received: 10/26/24 Interpretation Satisfactory for evaluation. Negative for intraepithelial lesion or malignancy. Endometrial cells present age 45 and over. Comment: Endometrial cells after age 45, particularly out of phase or after menopause, may be associated with benign endometrium, hormonal alterations or, less commonly, endometrial/uterine abnormalities. Please correlate with clinical findings. HPV High Risk: Negative HPV Genotyping 16: Negative HPV Genotyping 18: Negative Assessment & Plan Assessment & Plan (1) Non-atypical endometrial cells on cervical Pap smear: Code(s): R87.618 - Other abnormal cytological findings on specimens from cervix uteri Category: Medical Plan Discussed: Ultrasound findings reviewed with her and Corine copies of all reports provided from patient to Corine for [facility] to keep on file. No indication for ultrasound follow up. Endometrial biopsy negative. Advised to monitor her cycles, she reports she is going to go get a calendar so she can keep track. Monitor menstrual cycles, report any unscheduled bleeding, bleeding episodes <24 days apart or heavy/prolonged menstrual bleeding. Call the office for a follow up for any concerns. Safe sex and use of condoms or need for control to follow up in the office if contemplating intimacy. The patient expressed understanding and agreement with the plan of care. All of her questions and concerns were addressed to the best of my ability. This note is constructed using voice recognition software. While every effort has been made to ensure accuracy, master chef errors may have been included. Keep annual exam appointment scheduled. Coding Level of Care Code Est Pt Level 3 (01383) Diagnoses Non-atypical endometrial cells on cervical Pap smear R87.618
== END 2025-03-29 14:30 | disposition home or self-care (01) ==
LOC: HO.HWS 12:45
PROVIDERS: PCP Internal Medicine; Visit Provider Advanced Practice Midwife
DX: R87.618 Other abnormal cytological findings on specimens from cervix uteri (principal)
CPT/HCPCS: 99213

== ENCOUNTER → 2025-03-29 12:45 | Outpatient (BNVA) | payer MEDICARE, MEDICAID, SELFPAY | PROVIDERS: PCP Internal Medicine; Visit Provider Advanced Practice Midwife | DX: R87.618 Other abnormal cytological findings on specimens from cervix uteri (principal) | CPT/HCPCS: 99212 ==

== ENCOUNTER 2025-06-28 13:50 | Outpatient (AMB) | payer MEDICARE, MEDICAID, SELFPAY ==
--- OUTSIDE RECORDS SUMMARY | 2025-06-28 13:57 | XMS_ITS | Encounter Summary ---
Author Organization [facility] Address [address] [place] [address] Phone Care Team Providers Care Fleet Mechanic Name Role Phone Pcp, Not Required Primary Care Provider Unavaila ble Encounter Details Date Type Department Care Team (Late st Contact Info) Description 05/18/2023 Ophth Exam [facility] Emergency Department [address] [place] [address] Pool Owens MD [address] [place] [address] [email or web address] Social History Tobacco Use Types Packs/Day Years Used Date Smoking Tobacco: Never Smokeless Tobacco: Never Alcohol Use Standard Drinks/Week Comments Yes 0 (1 standard drink = 0.6 oz pur e alcohol) Education Answer Date Recorded Are you interested in more education? Not on delicia e 05/18/2023 Are you concerned about learning? Not on file 05/18/2023 No 05/18/2023 No 05/18/2023 Digital Access Answer Date Recorded No 05/18/2023 No 05/18/2023 Reliable internet access at home? Not on file 05/18/2023 Device with a working camera? Not on file Intimate Partner Violence Answer Date R ecorded Are you denied basic needs s uch as food, clothing, or medical care? No 05/19/2023 In the past 12 months have y ou been in a relationship with a person who hurts, threatens, or tries to control you? No 05/19/2023 Are you denied basic needs s uch as food, clothing, or medical care? No 05/19/2023 In the past 12 months have y ou been in a relationship with a person who hurts, threatens, or tries to control you? No 05/19/2023 Comments No Sex and Gender Information Value Date Recorded Sex Assigned at Not on file Legal Sex Female 6:35 PM EDT Gender Identity Not on file Sexual Orientation Not on file documented as of this encounter Functional Status * Calculated C-SSRS Risk Score (Lifetime/Recent) Answer Date of Assessment Author No Risk Indicated 05/18/2023 7:15 PM EDT Cookie Junior RN * [place] Suicide Severity Rating Scale (Screener/Recent Self-Report) Question Answer Date of Assessment Author 1. Wish to be (Past 1 Month) No 05/18/2023 7:15 PM EDT Orville Mancilla RN 2. Non-Specific Active Suicidal Thoughts (Past 1 Month) No 05/18/2023 7:15 PM EDT Orville Mancilla RN 6. Suicidal Behavior (Lifetime) No 05/18/2023 7:15 PM EDT Orville Mancilla RN documented as of this encounter Plan of Treatment Upcoming Encounters Date Type Department Care Team (Late st Contact Info) Description 08/16/2025 10:20 AM EDT Office Visit [address] [address] Cristian Elkins MD [address] [place] [phone] [email or web address] documented as of this encounter Visit Diagnoses Not on filedocumented in this encounter Care Teams Fleet Mechanic Relationship Specialty Start Date End Date Pcp, Not Required [address] [place] [address] PCP - General 05/18/23 documented as of this encounter Additional Source Comments The information contained in this document represents components of the legal health record. It is not the complete legal health record.[facility]
--- NOTE | 2025-06-28 14:07 | MHC.OFFVIS ---
Intake Visit Reasons: 9m follow up Intake Note: Patient is present for 9m follow up Urology Medication:Oxybutynin, Estradiol Antibiotic Allergy:None Blood Thinner:None Medical Billing Instructor Required: No Allergies Seasonal Allergies Allergy (Intermediate, Verified 06/28/25 14:09) Unknown Medication List - Last Reconciled 06/28/25 by Radha Nelson MD acetaminophen 0 mg PO albuterol sulfate 90 mcg/actuation 2 puffs inhalation Q4H PRN budesonide 180 mcg/actuation (Pulmicort Flexhaler) 2 inhalations inhalation BID clotrimazole 1% appl topical conjugated estrogens (Premarin) pea sized amount per urethra daily; vaginally daily; 90 days diltiazem HCl 30 mg PO TID erythromycin ophthalmic (eye) estradiol 0.01%(0.1mg/gram) 1 g vaginal DAILY famotidine 1 tab PO BID fluticasone furoate-vilanterol 100-25 mcg/dose (Breo Ellipta) 1 ea inhalation DAILY gabapentin 100 mg PO TID ibuprofen 600 mg PO TID ipratropium bromide intranasal loratadine 1 tab PO DAILY montelukast 10 mg PO DAILY olanzapine 1 tab PO BEDTIME olanzapine 0 mg PO omeprazole 1 cap PO DAILY oxybutynin chloride ER 15 mg PO DAILY sertraline 200 mg PO DAILY topiramate 1 tab PO BEDTIME triamcinolone acetonide 0.1% appl topical HPI Comments Details: 06/28/25--Rodriguez Brown is here for follow-up she resides in a long-term she is on oxybutynin for overactive bladder symptoms she is status post transvaginal sling and has had exposure of the mesh vaginally and has been using estrogen vaginal cream History of Present Illness - The patient is a 45-year-old female presenting for follow-up care related to overactive bladder and mesh exposure post transvaginal sling. - She resides in a long-term and is on oxybutynin for overactive bladder symptoms. - The patient underwent a transvaginal sling procedure, resulting in mesh exposure vaginally. - Estrogen vaginal cream is used nightly to address vaginal atrophy and thicken the vaginal mucosa due to mesh exposure. - The patient reports no urinary infection signs, burning during urination, or major urinary leakage. Plan - Continue oxybutynin for overactive bladder management. - Maintain nightly use of estrogen vaginal cream for vaginal atrophy and mucosal support. - Plan a follow-up visit in 9 months to evaluate treatment efficacy and adjust the management plan as needed. 09/28/24--6 month FU.Ro is here for follow up. She resides in a long-term. She is on oxybutynin for OAB symptoms. She is status post transvaginal sling by Dr Dominguez. On pelvic exam she was noted to have exposure of mesh vaginally. She has been prescribed oxybutynin 15 mg daily and is using the estrogen vaginal cream. She states she has been doing well denies urinary leakage. 03/27/24--Ro is a 43-year-old female who presents today to the office for a follow-up. She resides in a long-term. She is accompanied by an Aide. She states she is doing well. She is prescribed Premarin vaginal cream for exposed vaginal mesh. She is compliant with medication. She states that the oxybutynin is working well for her bladder control. Denies dysuria or gross hematuria. Has not had significant issues with urinary incontinence. 09/24/2023--Ro is here for follow up. She resides in a long-term. She is on oxybutynin for OAB symptoms. She is status post transvaginal sling by Dr Dominguez. On pelvic exam she was noted to have exposure of mesh vaginally. She has been prescribed oxybutynin 15 mg daily and is using the estrogen vaginal cream. she denies vaginal pain. She denies dysuria. She was last seen on 03/31/23 for UDS, findings sensory urgency, detrusor overactivity not observed Stress urinary incontinence not observed. Plan is to continue oxybutynin and premarin cream UA? Blood: negative, leukocytes:negative. Bladder scan PVR: 170 mL. Continue Premarin. Continue oxybutynin 15 mg QD. [facility] Medical History Encounter for test, result negative Abnormal uterine bleeding (AUB) Non-atypical endometrial cells on cervical Pap smear Exposure of vaginal mesh through vaginal wall Urge incontinence Intellectual disability Intellectual disability Schizoaffective disorder Conduct disorder Family History Father No problems noted. Mother No family history of cancer Maternal Aunt Breast carcinoma Social History Household Members: Other Housing: Other Housing Other:: long-term Do you presently have visiting nurse or other home services: Yes (long-term staff) Unable to assess alcohol history related to: Refusing to respond Alcohol intake: unknown Patient Tobacco Use Status: Never used Tobacco service: No Sexual orientation: Straight/Heterosexual Review of Systems Const All systems reviewed & are unremarkable except as noted in HPI and below Reports no additional complaints Eyes Reports no additional complaints ENT Reports no additional complaints Card Reports no additional complaints Resp Reports no additional complaints GI Reports no additional complaints Reports as per HPI Musc Reports no additional complaints Skin/Breast Reports system reviewed and no additional complaints, except as documented Neuro Reports no additional complaints Psych Reports no additional complaints Endo Reports no additional complaints Sonido/Lymph Reports no additional complaints Aller/Immun Reports no additional complaints Results AMB Urinalysis, Automated UA Leukoctes 15 Kassidy/uL Last Edit by Renée Núñez on 06/28/25 16:08 UA Nitrite Negative Last Edit by Renée Núñez on 06/28/25 16:08 UA Urobilinogen 3.5 mg/dL Last Edit by Renée Núñez on 06/28/25 16:08 UA Protein 0 mg/dL Last Edit by Renée Núñez on 06/28/25 16:08 UA pH 6.0 Last Edit by Renée Núñez on 06/28/25 16:08 UA Blood 200 Aramis/uL Last Edit by Renée Núñez on 06/28/25 16:08 UA Specific [place] 1.015 Last Edit by Renée Núñez on 06/28/25 16:08 UA Ketone Negative Last Edit by Renée Núñez on 06/28/25 16:08 UA Bilirubin 0 mg/dL Last Edit by Renée Núñez on 06/28/25 16:08 UA Glucose 0 mg/dL Last Edit by Renée Núñez on 06/28/25 16:08 Assessment & Plan Assessment & Plan (1) OAB (overactive bladder): Code(s): N32.81 - Overactive bladder Category: Medical (2) Exposure of vaginal mesh through vaginal wall: Code(s): T83.721A - Exposure of implanted vaginal mesh into vagina, initial encounter Category: Medical Qualifiers: Encounter type: initial encounter Qualified Code(s): T83.721A - Exposure of implanted vaginal mesh into vagina, initial encounter Plan Continue oxybutynin and premarin cream as prescribed. Orders: Orders AMB Urinalysis Automated Today N32.81 - Overactive bladder, T83.721A - Exposure of implanted vaginal mesh into vagina, initial encounter AMB Post Void Residual by ultrasound Today N32.81 - Overactive bladder, T83.721A - Exposure of implanted vaginal mesh into vagina, initial encounter Coding Level of Care Code Est Pt Level 4 (50773) Diagnoses OAB (overactive bladder) N32.81 Exposure of vaginal mesh through vaginal wall, initial encounter T83.721A Encounter type: initial encounter
== END 2025-06-28 14:33 | disposition home or self-care (01) ==
LOC: HO.HUSH 13:51
PROVIDERS: PCP Internal Medicine; Visit Provider Urology
DX: T83.721A Exposure of implanted vaginal mesh into vagina, initial encounter (principal); N32.81 Overactive bladder

== ENCOUNTER → 2025-06-28 13:50 | Outpatient (BNVA) | payer MEDICARE, MEDICAID, SELFPAY | PROVIDERS: PCP Internal Medicine; Visit Provider Urology | DX: N32.81 Overactive bladder (principal); T83.7 Complications due to implanted mesh and other prosthetic materials | CPT/HCPCS: 81003; 99212 ==

== ENCOUNTER 2025-10-30 09:59 | Outpatient (AMB) | payer MEDICARE, MEDICAID, SELFPAY ==
--- NOTE | 2025-10-30 10:02 | A.OFFVIS_ITS ---
Vital Signs 10/30/25 10:11 Height 5 ft Weight 243 lb BMI 47.5 BP 110/74 Blood Pressure Location Lt brachial Position Sitting Intake Visit Reasons: RN STARS annual exam Public Policy Coordinator Required: No Ceramic Tile Installation Helper: Ceramic Tile Installation Helper Present (Rossy Grimes CMA) Accompanied by: Other Relationship Allergies Seasonal Allergies Allergy (Intermediate, Verified 06/28/25 14:09) Unknown Medication List - Last Reconciled 10/30/25 by Mary Simpson CNM acetaminophen 0 mg PO albuterol sulfate 90 mcg/actuation 2 puffs inhalation Q4H PRN budesonide 180 mcg/actuation (Pulmicort Flexhaler) 2 inhalations inhalation BID clotrimazole 1% appl topical conjugated estrogens (Premarin) pea sized amount per urethra daily; vaginally daily; 90 days diltiazem HCl 30 mg PO TID erythromycin ophthalmic (eye) estradiol 0.01%(0.1mg/gram) 1 g vaginal .daily at 8pm famotidine 1 tab PO BID fluticasone furoate-vilanterol 100-25 mcg/dose (Breo Ellipta) 1 ea inhalation DAILY ibuprofen 600 mg PO TID ketoconazole 1% 1 appl topical 2XW loratadine 1 tab PO DAILY olanzapine 1 tab PO BEDTIME olanzapine 0 mg PO oxybutynin chloride ER 15 mg PO DAILY propylene glycol 0.6% (Systane Balance) 1 drp ophthalmic (eye) QID PRN sertraline 200 mg PO DAILY sertraline (Zoloft) 200 mg (2 x 100 mg) PO DAILY topiramate 1 tab PO BEDTIME triamcinolone acetonide 0.1% appl topical HPI Comments Details: Pt presents today for ANNUAL exam , she presents with her residential/ manager case management She has the following concerns: none She is not in a relationship/ not sexually active, Exercise: daily walks Nutrition/calcium: 3 meals daily Contraception: abstinence Last Pap: 2023 , Results: endometrial cells, EMB - benign Last mammo: 2024, [facility] negative per worker report. will sign RAFY to obtain , [facility] Medical History Encounter for test, result negative Abnormal uterine bleeding (AUB) Non-atypical endometrial cells on cervical Pap smear Exposure of vaginal mesh through vaginal wall Urge incontinence Intellectual disability Intellectual disability Schizoaffective disorder Conduct disorder Family History (Updated 10/30/25 @ 10:08 by Mary Simpson CNM) Father No problems noted. Mother No problems noted. Maternal Aunt Breast carcinoma Social History Household Members: Other Housing: Other Housing Other:: residential Do you presently have visiting nurse or other home services: Yes (residential staff) Alcohol intake: unknown Patient Tobacco Use Status: Never used Tobacco service: No Sexual orientation: Straight/Heterosexual Female Reproductive History Menstrual Duration of menses: 3-5 days Date of last menstrual period: 10/25/25 control method: none (abstinence) Date of last pap smear: 10/25/24 History of abnormal pap smear: Yes (endometrial cells 2023) History of STI: No Date of Mammogram: 10/24/24 Review of Systems Const Reports no additional complaints Eyes Reports no additional complaints ENT Reports no additional complaints Card Reports no additional complaints Resp Reports no additional complaints GI Reports no additional complaints Reports as per HPI Skin/Breast Reports system reviewed and no additional complaints, except as documented Physical Exam Vital Signs: Last Vital Signs BP 110/74 10/30/25 10:11 BMI result Body Mass Index 47.5 Const General: cooperative, healthy appearing and no acute distress Orientation/consciousness: patient oriented x3 HEENT Head: Yes normal to inspection and Yes normocephalic Ears: external ears normal General nose exam: Normal external nose present Neck Neck: Yes normal visual inspection Chest Breast/axilla inspection: normal inspection of the breasts, normal inspection of the axillae and Other (No skin changes, peau d orange, or nipple discharge noted) Breast/axilla palpation: normal palpation of the breasts, normal palpation of the axillae and no axillary lymphadenopathy Resp Effort & Inspection: normal respiratory effort and able to speak in complete sentences GI Inspection: No distended Palpation (GI): Soft to palpation, nontender and no masses Percussion: Yes normal to percussion Rectal Exam - Female: No External hemorrhoid(s) present External Female Exam: normal external appearance and normal appearance of the urethra Speculum Exam - Vagina: normal appearance of the vagina and normal vaginal discharge Speculum Exam - Cervix: normal appearance of the cervix (scant menses noted) and normal palpation (neg CMT) Bimanual exam- vagina & uterus: normal bimanual exam, normal palpation (neg CMT), uterine mobility normal and non-tender Bimanual Exam- Adnexa, other: no masses and No adnexal tenderness Skin General skin exam: no rashes or lesions noted Neuro General: patient oriented x3 and moves all extremities Extrem General: Yes full ROM Psych Speech and movement: Normal speech and movement present Affect: normal affect Attitude: cooperative Thought process: Normal thought process present Assessment & Plan Assessment & Plan (1) Encounter for well woman exam with routine gynecological exam: Code(s): Z01.419 - Encounter for gynecological examination (general) (routine) without abnormal findings Category: Medical (2) Screening breast examination: Code(s): Z12.39 - Encounter for other screening for malignant neoplasm of breast (3) Screening for malignant neoplasm of cervix: Code(s): Z12.4 - Encounter for screening for malignant neoplasm of cervix (4) History of abnormal cervical Pap smear: Code(s): Z87.42 - Personal history of other diseases of the female genital tract Plan During the visit, the following areas of concern were addressed: Monitoring of the menstrual cycle Regular exercise Healthy lifestyle Health Maintenance and Screening -Reviewed ASCCP guidelines for Paps and yearly (bi-yearly ) pelvic exam. -Reviewed and encouraged diet and exercise for cardiovascular and bone health -Reviewed breast self-awareness. Importance of yearly mammogram after age 40 (earlier if first-degree relative with breast cancer at a younger age ) Discuss use of 3 times per week weight-bearing exercise, vitamin D3 and servings of dietary calcium daily for bone health. -continue to follow with PCP for general medical care, immunizations. Screening strategies for colon cancer after age 50. Discussion of Kegel exercises for urinary incontinence Family and personal history of cancer reviewed. The patient has BMI: 47 The patient is overweight. Approaches towards weight loss are discussed including burning more calories than one takes in by frequent, small meals, portion control, avoiding eating before bedtime, regular exercise with an emphasis on duration rather than intensity, Meds reviewed I did not prescribe an new meds today, may have been inadvertently placed by MA RTO one year or sooner tru Simpson CNM Note about provider documentation : If you or the patient named in this chart and are reviewing your medical notes, please note that medical documentation is often written with abbreviations and medical terminology, and directed for other providers who may be involved in your care as well. Documentation is critical to record what has happened, what tests were ordered, and so they are interpreted with the resulting diagnoses. These nodes have been made available for patient review but not specifically written for the patient. Important health information is always given to my patients in clinical instructions. Please review your after visit summary and our contact our clinical staff if you have any questions. Orders: Orders Pap Smear Today Z01.419 - Encounter for gynecological examination (general) (r outine) without abnormal findings, Z12.4 - Encounter for screening for malignant neoplasm of cervix, Z87.42 - Personal history of other diseases of the female genital tract Medications: New sertraline (Zoloft) 200 mg (2 x 100 mg) PO DAILY 30 tabs 0RF Coding Level of Care Code Est Pt Prev Care 40-64y(58868) Diagnoses Encounter for well woman exam with routine gynecological exam Z01.419 Screening breast examination Z12.39 Screening for malignant neoplasm of cervix Z12.4 History of abnormal cervical Pap smear Z87.42
[2025-10-30 10:11] VITALS: BP 110/74; BMI 47.5
== END 2025-10-30 11:33 | disposition home or self-care (01) ==
LOC: HO.HWSM 09:59
PROVIDERS: PCP Internal Medicine; Visit Provider Advanced Practice Midwife
DX: Z01.419 Encounter for gynecological examination (general) (routine) without abnormal findings (principal); Z12.39 Encounter for other screening for malignant neoplasm of breast; Z12.4 Encounter for screening for malignant neoplasm of cervix; Z87.42 Personal history of other diseases of the female genital tract
CPT/HCPCS: G0101; Q0091

== ENCOUNTER 2025-10-30 09:59 | Outpatient (REF) | payer MEDICARE, MEDICAID, SELFPAY | END 2025-10-30 10:00 | disposition home or self-care (01) | LOC: HO.LNP 09:59 | PROVIDERS: PCP Internal Medicine; Visit Provider Advanced Practice Midwife | DX: Z01.419 Encounter for gynecological examination (general) (routine) without abnormal findings (principal); Z11.51 Encounter for screening for human papillomavirus (HPV); Z12.39 Encounter for other screening for malignant neoplasm of breast; Z87.42 Personal history of other diseases of the female genital tract | CPT/HCPCS: 87626; 88175 ==